=== PATIENT | male | born 1950 | race Caucasian/White ===

== ENCOUNTER 2016-12-21 09:25 | Inpatient (IN) | payer MEDICARE, MEDICAID ==
--- NOTE | 2016-12-21 10:21 | ED ---
Lower Extremity - HPI Summary HPI Summary: 66M presents with left foot edema for a couple days. He has diabetic neuropathy and has been wearing wet shoes. He states he took his shoe off today and noticed that there was edema and redness to the area. He denies any fever or pain. He has been wearing the same shoes at night. He then later states he is getting pain up to his left calf. He has not taken anything for his pain. He admits to he has been living out of his car and has not taken his metformin or januvia in 5 days. He denies any history of blood clots. He does not see a orthotics prosthetics technician. He does not check his blood sugars. His last A1C was 7. - History of Current Complaint Chief Complaint: EDExtremityLower Stated Complaint: TOE INJURY Time Seen by Provider: 12/21/16 10:08 Pain Intensity: 5 - Allergies/Home Medications Allergies/Adverse Reactions: Allergies Allergy/AdvReac Type Severity Reaction Status Date / Time Grass and hay Allergy Rash Uncoded 12/21/16 09:30 PMH/Surg Hx/FS Hx/Imm Hx Endocrine/Hematology History: Reports: Hx Diabetes Infectious Disease History: No Infectious Disease History: Denies: Traveled Outside the [place] in Last 30 Days - Family History Known Family History: Positive: Diabetes - Social History Alcohol Use: None Substance Use Type: Reports: None Smoking Status (MU): Never Smoked Tobacco Review of Systems Negative: Fever Negative: Chest Pain Negative: Shortness Of Breath Positive: Other - ulcer left great toe All Other Systems Reviewed And Are Negative: Yes Physical Exam Triage Information Reviewed: Yes Vital Signs On Initial Exam: Initial Vitals Temp Pulse Resp BP Pulse Ox 98.3 F 85 17 132/77 98 12/21/16 09:26 12/21/16 09:26 12/21/16 09:26 12/21/16 09:26 12/21/16 09:26 Vital Signs Reviewed: Yes Appearance: Positive: Well-Appearing Skin: Positive: Other - 3cm by 4cm full thickness ulcer of left great toe, peeling epidermis present on bottom of bilateral soles. areas of erythema and edema present on foot especially between toes. Head/Face: Positive: Normal Head/Face Inspection Eyes: Positive: Normal, Conjunctiva Clear Respiratory/Lung Sounds: Positive: Clear to Auscultation, Breath Sounds Present Cardiovascular: Positive: Normal, RRR Musculoskeletal: Positive: Strength/ROM Intact - left and right foot, Other - good pulses, no sensation to foot - Basil Coma Scale Coma Scale Total: 15 Diagnostics - Vital Signs Vital Signs Temp Pulse Resp BP Pulse Ox 12/21/16 09:52 86 98 12/21/16 09:50 125/69 12/21/16 09:26 98.3 F 85 17 132/77 98 - Laboratory Result Diagrams: 12/21/16 10:10 12/21/16 10:10 Lab Statement: Any lab studies that have been ordered have been reviewed, and results considered in the medical decision making process. - Radiology foot Xray Interpretation: Positive (See Comments) - IMPRESSION: SOFT TISSUE SWELLING AND ULCER IN THE GREAT TOE. NO SPECIFIC RADIOGRAPHIC EVIDENCE FOR OSTEOMYELITIS. Radiology Interpretation Completed By: Radiologist Lower Extremity Course/Dx - Course Course Of Treatment: 66M presents with left foot edema for a couple days. He has diabetic neuropathy and has been wearing wet shoes. He states he took his shoe off today and noticed that there was edema and redness to the area. He denies any fever or pain. He has been wearing the same shoes at night. on exam has ulcer on left great toe with some drainage with erythema and edema. has erythema between toes. labs no wbc. xray no osteomyelititis seen. had dr ramey see and agrees due to extent of great toe ulcer and social situation would benefit from admission. dr beltran agrees to admission. patient understands and agrees with plan. - Diagnoses Differential Diagnosis/HQI/PQRI: Positive: Cellulitis, Other - diabetic ulcer, contact dermatitis Provider Diagnoses: Diabetic ulcer of left great toe Discharge - Discharge Plan Condition: Fair Disposition: ADMITTED TO [facility]
[2016-12-21 10:36] LABS: Hematocrit 37 % (42-52); Hemoglobin 12.4 g/dl (14.0-18.0); Mean Corpuscular HGB Conc 34 g/dl (31-36); Mean Corpuscular Hemoglobin 33 pg (27-31); Mean Corpuscular Volume 97 fL (80-94); Mean Platelet Volume 7 um3 (7.4-10.4); Red Blood Count 3.82 10^6/ul (4.0-5.4); Red Cell Distribution Width 13 % (10.5-15); White Blood Count 8.6 10^3/ul (3.5-10.8)
--- NOTE | 2016-12-21 10:48 | RAD ---
INDICATION: New diabetic foot ulcer great toe. TECHNIQUE: 3 views of the left foot were obtained. FINDINGS: There is soft tissue swelling present throughout the great toe. There is a soft tissue defect consistent with an ulcer along the medial aspect of the great toe at the level of the distal phalanx. No periosteal or erosive changes are seen. Incidental note is made of moderate osteoarthritic change in the first metatarsal-phalangeal joint. IMPRESSION: SOFT TISSUE SWELLING AND ULCER IN THE GREAT TOE. NO SPECIFIC RADIOGRAPHIC EVIDENCE FOR OSTEOMYELITIS.
[2016-12-21 10:51] LABS: Albumin 3.4 g/dL (3.2-5.2); BUN/Creatinine Ratio 29.9 (8-20); Calcium 8.8 mg/dL (8.6-10.3); EGFR African American 129.6 (>60); EGFR Non-African American 100.8 (>60); Globulin 3.5 g/dL (2-4); Potassium 3.2 mmol/L (3.5-5.0); Total Bilirubin 1.7 mg/dL (0.2-1.0); Total Protein 6.9 g/dL (6.4-8.9)
--- NOTE | 2016-12-21 12:05 | RAD ---
INDICATIONS: open wound, left great toe COMPARISONS: None TECHNIQUE: Ankle-brachial indices and Doppler tracings were obtained of the lower extremities bilaterally. FINDINGS: Right: The posterior tibial ankle brachial index is 1.35. The dorsalis pedis ankle brachial index is 1.28. The digital brachial index is 0.93 The posterior tibial waveform is triphasic. The dorsalis pedis waveform is triphasic. Left: The posterior tibial ankle brachial index is 1.33. The dorsalis pedis ankle brachial index is 1.24. The posterior tibial waveform is triphasic. The dorsalis pedis waveform is triphasic. OTHER: None. IMPRESSION: INCREASED ANKLE-BRACHIAL INDICES SUGGESTIVE OF DECREASED COMPLIANCE IN THE SETTING OF ARTERIOSCLEROSIS. THE DISTAL WAVEFORMS ARE NORMAL.
[2016-12-21] MEDS ORDERED: ceFAZolin 1 GM in Dextrose (*) 1 GM/50 ML BAG IVPB ONE (12:59)
[2016-12-21] MEDS ORDERED: cefTRIAXone(*) 1 GM in NS 0.9% 50 ML* 50 ML IVPB ONE (13:00)
[2016-12-21] MEDS ORDERED: Vancomycin(*) 1,500 MG in NS 0.9% 250 ML* 250 ML IVPB ONE (14:00)
[2016-12-21] MEDS ORDERED: Potassium Chlor TAB* 20 MEQ TAB.ER PO ONE ×2 (14:47→21:00)
[2016-12-21] MEDS ORDERED: Vancomycin per Pharmacy* NOTE FOLLOW UP SCH (15:00)
[2016-12-21] MEDS: Cefepime(*) 1 GM in NS 0.9% 50 ML* 50 ML IVPB SCH (17:16)
[2016-12-21] MEDS: Enoxaparin(*) 40 MG/0.4 ML SYR SUBCUT SCH (17:16)
--- NOTE | 2016-12-21 19:34 | HP ---
CC: Dr. Vilma Lundberg * HISTORY AND PHYSICAL: DATE OF ADMISSION: 12/21/16 PRIMARY CARE PHYSICIAN: Dr. Vilma Lundberg. CHIEF COMPLAINT: Foot pain. HISTORY OF PRESENT ILLNESS AND HOSPITAL SUMMARY: Mr. Escalante is a 66-year-old male with a past medical history of type 2 diabetes and peripheral neuropathy, who presents to the hospital with foot pain. The patient states he has been doing a lot of heavy lifting and moving recently. He sold his house and was supposed to vacate the premises by this past Sunday; however, he was unable to do so due to the amount of stress that he had in his house. He has been working to move these belongings, a lot of them heavy and requiring additional people. He states that from Sunday through now, he has been working often 22 hours a day moving things around. He recently bought new boots and developed some foot pain that he initially thought he was just breaking in the boots. He has been working in very wet conditions and over the past days, he has not taken the boots off or change his wet socks because his clothes have been in a new building he is moving into and he has not had easy access to that building. The patient states the last time he looked at his feet was a few days prior to admission and he noticed a small blister in his left great toe as well as a small blister between two toes in the right foot. Today, he was finally able to make it to his new building and stopped there to get some new clothes and he took his socks off. He was concerned that the way his feet looked. He denies much discharge noted in his socks, although he was not particularly looking for this. Did not notice any bleeding. He states his left great toe has been black underneath the toe nail for some months now, which is not new. He does endorse some chills but no fevers. Denies any chest pain, nausea, vomiting. Has chronic diarrhea. The patient states that he has been off his diabetes medications for 4 to 5 days, because these have also been in a box moved to his new place. He has not been checking his sugars. He states that he has had 25- pound weight loss over the past 3 months, which he attributes to the significant amount of work he has been doing lately. Of note, he had a colonoscopy in November of 2016, that just showed a small polypoid nodule that was removed. In the emergency department, there was concern about the way the ulcer looked and about the patient's ability for close followup and treatment due to his shifting, living situation at the time. Hospitalist service was consulted to consider the patient for admission. PAST MEDICAL HISTORY: Diabetes, peripheral neuropathy. PAST SURGICAL HISTORY: None. HOME MEDICATIONS: 1. Sitagliptin 100 mg by mouth daily. 2. Metformin 850 mg by mouth 2 times daily. ALLERGIES: No known drug allergies. FAMILY HISTORY: Significant for father with diabetes; end-stage renal disease, on dialysis. Mother with dementia. SOCIAL HISTORY: The patient never smoked. Does not drink any alcohol or use any illicit drugs. PHYSICAL EXAMINATION GENERAL: The patient is a middle-aged man, disheveled, malodorous, lying in bed, in no apparent distress. VITAL SIGNS: On admission, temperature 98.3, heart rate 85, respiratory rate of 17, O2 saturation 98% on room air, blood pressure 132/77. HEENT: Head: Normocephalic, atraumatic. Eyes: Pupils equal, round, and reactive to light and accommodation. Anicteric sclerae. ENT: Moist mucous membranes. No cervical adenopathy. LUNGS: Clear to auscultation bilaterally. No wheezes, rales, or rhonchi. CARDIOVASCULAR: Regular rate and rhythm. S1 and S2 present. No murmurs, gallops, or rubs. ABDOMEN: Soft, nontender, nondistended. Possible hepatomegaly or ventral hernia. No rebound or guarding. Bowel sounds are positive. The patient has scattered excoriations over his abdomen. EXTREMITIES: The patient with pitting edema to the knees bilaterally, right greater than left. Shins and feet have scattered erythematous patches that are nonraised, also with some slight petechiae in various areas of the foot as well. On the medial aspect of the second right toe, there is a shallow ulceration with slight purulent discharge. On the left great toe, there is a larger ulcer with what appears to be some necrotic areas, although it is difficult because his feet are very dirty to tell. No discharge from this ulcer , it appears dry. On the plantar surface of the patient's feet, he has some white thickened areas. SKIN: Aside from the feet, the patient has scattered scratches and excoriations over his upper and lower extremities as well as his abdomen as noted above. DIAGNOSTIC STUDIES/LAB DATA: White blood cell count of 8.6, hematocrit of 37, platelets of 234. Sodium of 136, potassium 3.2, chloride of 104, carbon dioxide of 24, BUN of 23, creatinine 0.77, glucose of 170, lactic acid of 1.1. Total bilirubin of 1.7, AST of 131, ALT of 74. CRP, high sensitivity of 55. ABIs done in the emergency department show increased ankle brachial indices suggestive of decreased compliance in the setting of arteriosclerosis. The distal wave forms are normal. X-ray of the left foot shows soft tissue swelling and ulcer in the great toe, no specific radiographic evidence for osteomyelitis. ASSESSMENT AND PLAN: Left great toe ulcer and right second toe ulcer with a possible underlying infection, as well as possible mild trench foot/immersion foot syndrome in a 66-year-old man with a past medical history of type 2 diabetes and peripheral neuropathy. 1. Bilateral lower extremity ulceration. Seems that the patient likely has a mild element of trench foot that provided a portal for infection and between his repetitive trauma in his feet from his long work days and the wet conditions and his diabetes, he had a combination of elements ripe to introduce an infection. There was an x-ray done of the left great toe that did not show any clear evidence of osteomyelitis, but this could be early on and may not show up yet on that x-ray. I am going to order an MRI of both feet to evaluate further. Blood cultures are done. There was also most likely a super-ficial wound culture of the left foot. I am not clear that there is significant underlying infection, but for the time being, I will continue the patient on vancomycin and we will add cefepime as well. I have asked Dr. Wilson to come and evaluate the patient tomorrow to see if he feels that IV antibiotics are necessary. I have ordered a Wound Care consult, seems that the trench foot does not appear to be covering a significant area necessitating any debridement at this time. 2. Transaminitis. The patient states he does not drink any alcohol. He has a mild AST and ALT elevation and an elevated bilirubin. We will check a right upper quadrant ultrasound. 3. Diabetes. Continue the patient on his home metformin for now. We will hold his Januvia. Check his BGs q.a.c. and h.s. 4. DVT prophylaxis. Lovenox subcu. 5. Code status. The patient is a full code. TIME SPENT: Total time spent on this admission 60 minutes, with over half the time spent [id number] with the patient in counseling and coordinating care. [id number]/CPS #: [id number] MTDD
--- NOTE | 2016-12-21 20:04 | RAD ---
Indication: LFT elevations. Weight loss. Comparison: No relevant prior exams available on the [facility] [place]. Technique: RIGHT upper quadrant ultrasound. Report: Appropriate direction flow documented in the portal and hepatic veins. 18.9 cm liver is increased in echogenicity. Negative for focal hepatic lesions. Negative for intrahepatic biliary dilatation. 5.7 mm common bile duct. Adequately distended gallbladder with 0.9 cm stone at the neck without demonstrated mobility. Upper normal 3 mm gallbladder wall thickness. Negative for pericholecystic fluid. Negative for sonographic Wyman's sign. The pancreatic tail is partially obscured due to bowel gas with the visualized pancreas echogenic favoring partial fatty replacement. Negative for ascites. 14.0 cm RIGHT kidney is unremarkable. IMPRESSION: 1. Mildly enlarged liver with evidence for hepatosteatosis. 2. Cholelithiasis without compelling secondary findings to indicate acute cholecystitis.
--- NOTE | 2016-12-21 20:51 | RAD ---
INDICATION: History of working with metal also. No known injury. Screening for potential orbital foreign body prior to MRI. COMPARISON: No relevant prior exams available on the [facility] [place]ACS for comparison. TECHNIQUE: AP and lateral views of the orbits were obtained. FINDINGS: No radiopaque foreign bodies are identified at the level of the orbits or visualized calvarium. Dental amalgam noted. IMPRESSION: No radiopaque orbital foreign bodies evident.
[2016-12-21] MEDS ORDERED: metFORMIN* 500 MG TAB PO SCH (21:00)
[2016-12-21] MEDS: metFORMIN* 850 MG TAB PO SCH (22:28)
--- NOTE | 2016-12-21 22:43 | RAD ---
Indication: Ulceration RIGHT second toe. Assess for osteomyelitis. Comparison: July 25, 2013 radiographs. Technique: [employer] 1.5 Josselyn [id number] with GEM suite. Noncontrast MRI RIGHT foot limited to T1 and inversion recovery series. Report: There is an intra-articular fracture at the plantar base of the second proximal phalanx at the medial aspect with mild associated marrow edema. Negative for significant surrounding soft tissue edema. No significant soft tissue edema evident at the plantar aspect of the forefoot to correspond with the reported soft tissue ulcer. There is nonfocal subcutaneous edema over the dorsum of the foot and about the ankle and visualized lower leg without evidence for a loculated soft tissue plane fluid collection. There is polyarticular osteoarthritis most prominent at the first metatarsal phalangeal joint and articulation with the sesamoid bones with associated subchondral marrow edema. IMPRESSION: No compelling evidence for osteomyelitis. Probable chronic intra-articular fracture at the plantar base of the second proximal phalanx at the medial aspect. Nonspecific soft tissue edema. No loculated abscess collection evident.
--- NOTE | 2016-12-21 22:50 | RAD ---
Indication: Ulceration LEFT great toe. Assess for osteomyelitis. Comparison: December 21, 2016 radiographs. Technique: [employer] 1.5 Josselyn [id number] with GEM suite. Noncontrast MRI LEFT foot limited to T1 and inversion recovery series. Report: Soft tissue edema most prominent over the lateral aspect of the ankle and foot as well as involving the intrinsic musculature along the plantar aspect of the foot. No loculated soft tissue plane abscess collection evident. Soft tissue ulcer at the medial aspect of the great toe at level of the distal phalanx and interphalangeal joint. Bone marrow edema at the first distal phalanx without compelling loss of normal T1 marrow hyperintensity. On the sagittal T1-weighted series there is suggestion of a fracture at the junction of the diaphysis and the tuft of the first distal phalanx. Polyarticular osteoarthritis from the talocrural and subtalar joints proximally through the interphalangeal joints distally. Moderate plantar fascia origin bone spur. IMPRESSION: 1. Shallow soft tissue ulcer medial aspect great toe. Subjacent and diffuse soft tissue edema involving the subcutaneous tissue plane and intrinsic musculature of the foot without evidence for a loculated soft tissue plane abscess collection. 2. Bone marrow edema at the first distal phalanx is nonspecific and may be reactive secondary to cellulitis. Early osteomyelitis is not entirely excluded. Edema is further less specific due to presence of a fracture at the junction of the diaphysis and tuft of the distal phalanx.
[2016-12-21] MEDS: Vancomycin(*) 1,000 MG in NS 0.9% 250 ML* 250 ML IVPB SCH (22:54)
[2016-12-21] MEDS: Collagenase 250 MG/GM OINT* 30 GM TOPICAL SCH (23:14)
[2016-12-21] MEDS: Neosporin TOPICAL OINT* 1 EA PACKET TOPICAL SCH (23:15)
[2016-12-22] MEDS: Cefepime(*) 1 GM in NS 0.9% 50 ML* 50 ML IVPB SCH ×2 (01:40→13:57)
[2016-12-22 05:19] LABS: Hematocrit 36 % (42-52); Hemoglobin 11.7 g/dl (14.0-18.0); Mean Corpuscular HGB Conc 33 g/dl (31-36); Mean Corpuscular Hemoglobin 32 pg (27-31); Mean Corpuscular Volume 97 fL (80-94); Mean Platelet Volume 7 um3 (7.4-10.4); Red Blood Count 3.66 10^6/ul (4.0-5.4); Red Cell Distribution Width 13 % (10.5-15); White Blood Count 7.5 10^3/ul (3.5-10.8)
[2016-12-22] MEDS: Vancomycin(*) 1,000 MG in NS 0.9% 250 ML* 250 ML IVPB SCH ×2 (05:27→14:55)
[2016-12-22 05:39] LABS: EGFR African American 163.4 (>60)
[2016-12-22 05:41] LABS: Albumin 2.8 g/dL (3.2-5.2); BUN/Creatinine Ratio 25.4 (8-20); Calcium 8.2 mg/dL (8.6-10.3); EGFR African American 163.4 (>60); Globulin 3.1 g/dL (2-4); Potassium 3.7 mmol/L (3.5-5.0); Total Bilirubin 1.2 mg/dL (0.2-1.0); Total Protein 5.9 g/dL (6.4-8.9)
[2016-12-22] MEDS: metFORMIN* 850 MG TAB PO SCH ×2 (08:34→20:10)
[2016-12-22] MEDS ORDERED: Vancomycin Trough Check NOTE FOLLOW UP ONE (13:30)
--- NOTE | 2016-12-22 14:31 | PN ---
Subjective Date of Service: 12/22/16 Interval History: Patient seen this morning. Says he is feeling better overall, although still with B/L foot pain. No fever or chills. Good PO intake. Has had watery stool 3x this morning. Family History: Unchanged from Admission Social History: Unchanged from Admission Past Medical History: Unchanged from Admission Objective Active Medications: Acetaminophen (Tylenol Tab*) 650 mg PO Q4H PRN Collagenase (Santyl 250 Mg/Gm Oint*) 1 applic TOPICAL DAILY [facility] Enoxaparin Sodium (Lovenox(*)) 40 mg SUBCUT Q24H [facility] Cefepime HCl 1 gm/ Sodium (Chloride) 50 mls @ 100 mls/hr IVPB Q12H [facility] Metformin HCl (Glucophage*) 850 mg PO BID [facility] Metronidazole (Flagyl Tab*) 500 mg PO BID [facility] Neomycin/Polymyxin/Bacitracin (Neosporin Top Oint Packet*) 1 ea TOPICAL DAILY [facility] Pharmacy Consult (Vancomycin Per Pharmacy*) 1 note FOLLOW UP .VANC PER PHARMACY [facility] Vital Signs 12/21/16 12/21/16 12/21/16 14:30 14:43 14:58 Temperature 98.4 F 98.3 F Pulse Rate 88 83 88 Respiratory 16 18 Rate Blood Pressure 134/68 131/69 134/68 (mmHg) O2 Sat by Pulse 97 98 Oximetry 12/22/16 03:37 Temperature 98.0 F Pulse Rate 81 Respiratory 20 Rate Blood Pressure 116/66 (mmHg) O2 Sat by Pulse 100 Oximetry Oxygen Devices in Use Now: None Appearance: Middle-aged, M, laying in bed in NAD Eyes: No Scleral Icterus Ears/Nose/Mouth/Throat: Mucous Membranes Moist Neck: NL Appearance and Movements; NL JVP Respiratory: Symmetrical Chest Expansion and Respiratory Effort, Clear to Auscultation Cardiovascular: NL Sounds; No Murmurs; No JVD, RRR Abdominal: NL Sounds; No Tenderness; No Distention Lymphatic: No Cervical Adenopathy Extremities: - - Trace B/L LE edema, improved Skin: - - L great toe ulcer with some mild necrosis, edema, R medial 2nd toe ulcer, small petechial area on B/L feet Neurological: Alert and Oriented x 3 Result Diagrams: 12/22/16 05:03 12/22/16 05:03 Assess/Plan/Problems-Billing Assessment: B/L LE ulcers with underlying L great toe infection in a 66 yo M with hx of DM - Patient Problems (1) Traumatic ulcer of left lower extremity with infection Current Visit: Yes Comment: in L great toe and R 2nd toe. MRI shows some L great toe marrow edema that may be related to inflammation. Wound culture growing Staph aureus (not MRSA). Wound care and ID consult appreciated. Cefepime /Flagyl as per ID. Vanc stopped. Will monitor over the next days on IV ABx. Small fxs noted on MRI as well. (2) Transaminitis Current Visit: Yes Comment: US negative. AST/ALT/Bili trending down. (3) Diabetes Current Visit: Yes Comment: Continue TID metformin. BGs slightly high but missed a dose yesterday. Will add SSI if needed. (4) DVT prophylaxis Current Visit: Yes Comment: Lovenox Status and Disposition: Inpatient for IV ABx
[2016-12-22] MEDS: Neosporin TOPICAL OINT* 1 EA PACKET TOPICAL SCH (14:58)
[2016-12-22] MEDS: Collagenase 250 MG/GM OINT* 30 GM TOPICAL SCH (14:58)
[2016-12-22] MEDS: Enoxaparin(*) 40 MG/0.4 ML SYR SUBCUT SCH (15:19)
[2016-12-22] MEDS: metroNIDAZOLE TAB* 250 MG PO SCH (20:10)
--- NOTE | 2016-12-23 00:41 | CONS ---
CONSULTATION REPORT: DATE OF CONSULT: 12/22/16 REQUESTING PHYSICIAN: Troy Donnelly MD CONSULTING SERVICE: Infectious Disease. REASON FOR CONSULT: Foot infection. IMPRESSION: 1. Left medial plantar toe ulcer with some fibrinous slough, surrounding cellulitis. Wound culture is growing Staph aureus, methicillin sensitive. This is likely one of the primary pathogens that could be polymicrobial as well. An MRI showed soft tissue edema involving subcutaneous tissue and musculature of the foot. No abscess. First distal phalanx, bone marrow edema, reactive versus early osteomyelitis. There was not noted to be any loss of T1 marrow hyperintensity, which argues against osteomyelitis. 2. MRI also shows suggestion of fracture of the junction of diaphysis of the tuft to the first distal phalanx. 3. Right second medial toe pressure related ulcer with surrounding mild cellulitis. 3. Diabetes with peripheral neuropathy. 4. Transaminitis, asymptomatic, improving; hyperbilirubinemia, improving. The AST is twice the ALT, question alcohol related. RECOMMENDATIONS: Stop vancomycin, continue cefepime 1 g IV every 8 hours and add Flagyl 500 mg by mouth twice daily. Continue a couple of days of IV antibiotics and evaluate for improvement in the soft tissue component of this infected ulcer. If there is not considerable improvement and if anything is getting worse, please have surgical evaluation for debridement. HISTORY OF PRESENT ILLNESS: This is a 66-year-old man, who is diabetic, has been working extensively over the last few days, essentially nonstop in a pair of new boots, which were wet the whole time, developed some sores and ulcerations with the change of boots yesterday and found a number of ulcers and redness and swelling in both feet. He came to the hospital. His white blood cell count was 8. He was afebrile. He had a swab of the biggest ulcer, the medial left toe ulcer. The PCR is positive of Staph aureus, negative for MRSA. The Gram stain showed gram- positive cocci, the culture is growing Staph aureus, the blood cultures are negative at 24 hours. He has been on vancomycin and cefepime. He is tolerating that well. He did have 1 or 2 loose stools today, but no abdominal pain or urgency. The pain is a little bit improved, it is worse with weightbearing in both feet. Pain medications have helped. He is keeping his feet up. He has not had an infection like this in the past. He has no prosthetic material present. He had an JONNIE that showed increased indices bilaterally. No dampening of distal waveforms. PAST MEDICAL HISTORY: Type 2 diabetes with neuropathy. MEDICATIONS: 1. Collagenase. 2. Enoxaparin. 3. Cefepime 1 g IV every 12 hours. 4. Neosporin ointment. 5. Metformin. ALLERGIES: No known drug allergies. SOCIAL HISTORY: He was recently moving out of his house into a trailer or abandoned building. Nonsmoker, no injection drugs. Denies alcohol. REVIEW OF SYSTEMS: All negative to full review of systems except as noted above. PHYSICAL EXAM: Vital Signs: Temperature 36.7, heart rate 80, respiratory rate 20, blood pressure 116/66, O2 sat 100% on room air. General: He is awake, not in distress. Neurologic: He is oriented x3. Follows all commands. Moves all of his extremities. Sensation is decreased to light touch in the feet bilaterally. HEENT: There is no conjunctival hemorrhage. Oropharynx without lesions. He has poor dentition. Neck is supple without nuchal rigidity. Lymph Nodes: There is no inguinal, axillary or epitrochlear lymphadenopathy. Heart has regular rate and rhythm without murmurs, rubs, or gallops. Lungs are clear to auscultation bilaterally. Abdomen: Soft, nontender, and nondistended. There are bowel sounds present. Skin: There is no rash or splinter hemorrhages. Musculoskeletal: There is no spine tenderness to palpation. The dorsalis pedis pulses are 2+ bilaterally. In the left medial toe , there is oblong 1.5 cm shallow ulceration with some surrounding maceration, underlying fibrinous debris, surrounding erythema, serous drainage, erythema and edema extending up into the mid foot. There is no crepitus or fluctuance. There is no ankle tenderness to palpation. There is no other joint synovitis. In the right second medial toe, there is a 5 mm round ulceration in the area of contact with the great toe with surrounding erythema. No drainage or fluctuance. LABORATORY DATA: White blood cell count 7, hemoglobin is 11, platelets 195. Creatinine 0.6, bilirubin 1.2, AST 70, ALT 51. Please see impressions and recommendations outlined above, which I have discussed with Dr. Donnelly. Thank you for asking me to see Mr. Escalante in consultation. [id number]/[facility] #: [id number] NOHELIA
[2016-12-23] MEDS: Cefepime(*) 1 GM in NS 0.9% 50 ML* 50 ML IVPB SCH ×2 (00:58→14:22)
[2016-12-23] MEDS ORDERED: Dextrose 50% Syringe 50 ML* 25 GM/50 ML SYRINGE IV PUSH PRN (08:27)
[2016-12-23] MEDS: metroNIDAZOLE TAB* 250 MG PO SCH ×2 (08:40→19:46)
[2016-12-23] MEDS: metFORMIN* 850 MG TAB PO SCH ×2 (08:40→19:45)
--- NOTE | 2016-12-23 08:40 | PN ---
Subjective Date of Service: 12/23/16 Interval History: Patient seen this AM. No new complaints, feels feet are slowly improving. No fever or chills. No chest pain, SOB, palpitations. Family History: Unchanged from Admission Social History: Unchanged from Admission Past Medical History: Unchanged from Admission Objective Active Medications: Acetaminophen (Tylenol Tab*) 650 mg PO Q4H PRN Collagenase (Santyl 250 Mg/Gm Oint*) 1 applic TOPICAL DAILY [facility] Enoxaparin Sodium (Lovenox(*)) 40 mg SUBCUT Q24H [facility] Cefepime HCl 1 gm/ Sodium (Chloride) 50 mls @ 100 mls/hr IVPB Q12H [facility] Metformin HCl (Glucophage*) 850 mg PO BID [facility] Metronidazole (Flagyl Tab*) 500 mg PO BID [facility] Neomycin/Polymyxin/Bacitracin (Neosporin Top Oint Packet*) 1 ea TOPICAL DAILY [facility] Vital Signs 12/22/16 12/22/16 12/22/16 15:27 19:36 20:00 Temperature 98.5 F 98.8 F Pulse Rate 81 73 Respiratory 18 22 18 Rate Blood Pressure 128/60 122/55 (mmHg) O2 Sat by Pulse 97 94 Oximetry 12/22/16 12/23/16 23:33 03:49 Temperature 98.0 F Pulse Rate 70 114 Respiratory 16 16 Rate Blood Pressure 118/58 109/52 (mmHg) O2 Sat by Pulse 97 91 Oximetry Oxygen Devices in Use Now: None Appearance: Middle-aged, M, laying in bed in NAD Eyes: No Scleral Icterus Ears/Nose/Mouth/Throat: Mucous Membranes Moist Neck: NL Appearance and Movements; NL JVP Respiratory: Symmetrical Chest Expansion and Respiratory Effort, - - Scattered faint wheezing, otherwise clear Cardiovascular: - - IRIR, tachycardic Lymphatic: No Cervical Adenopathy Extremities: - - Mild B/L LE edema Skin: - - B/L feet with dressing in place, some dried bloody discharge over L great toe, will evaluate with dressing change later Neurological: Alert and Oriented x 3 Result Diagrams: 12/22/16 05:03 12/22/16 05:03 Assess/Plan/Problems-Billing Assessment: B/L LE ulcers with underlying L great toe infection in a 66 yo M with hx of DM, course complicated by new onset AFib - Patient Problems (1) Traumatic ulcer of left lower extremity with infection Current Visit: Yes Comment: in L great toe and R 2nd toe. MRI shows some L great toe marrow edema that may be related to inflammation. Wound culture growing Staph aureus (not MRSA). Wound care and ID consult appreciated. Cefepime /Flagyl as per ID. Will monitor over the next days on IV ABx. Small fxs noted on MRI as well. (2) Atrial fibrillation Current Visit: Yes Comment: New dx, as patient asymptomatic this may have been ongoing as an outpatient, ?related to infection. Will transfer to to monitor on tele. Check BMP, Mg, TSH, BNP, troponin. Get echocardiogram. Start rate controlling agent. [id number] score of 2, will discuss long term care administrator anticoagulation with the patient, in the meantime will start therapeutic Lovenox (3) Transaminitis Current Visit: Yes Comment: US negative. AST/ALT/Bili trending down. (4) Diabetes Current Visit: Yes Comment: Continue TID metformin. Low dose HISS. (5) DVT prophylaxis Current Visit: Yes Comment: Lovenox Status and Disposition: Inpatient for IV ABx, new onset AFib
[2016-12-23 09:30] LABS: Calcium 8.4 mg/dL (8.6-10.3); EGFR African American 157.6 (>60); EGFR Non-African American 122.5 (>60); Magnesium 1.8 mg/dL (1.9-2.7); Potassium 3.9 mmol/L (3.5-5.0)
[2016-12-23] MEDS: Enoxaparin(*) 100 MG/ML SYR SUBCUT SCH ×2 (09:31→19:44)
[2016-12-23] MEDS ORDERED: Magnesium Oxide TAB* 400 MG PO ONE (09:49)
[2016-12-23 09:54] LABS: TSH (Thyroid Stimulating Horm) 1.83 mcIU/mL (0.34-5.60)
[2016-12-23] MEDS ORDERED: Metoprolol Tartrate IV* 1 MG/ML 5 ML VIAL IV ONE (10:54)
[2016-12-23] MEDS: Insulin LISPRO* 1 UNITS UNIT SUBCUT SCH ×2 (12:26→17:42)
[2016-12-23] MEDS ORDERED: Furosemide IV* 10 MG/ML 2 ML VIAL (20 MG) IV ONE (12:56)
[2016-12-23] MEDS ORDERED: Metoprolol Tartrate TAB* 25 MG PO SCH (13:00)
[2016-12-23] MEDS: Acetaminophen TAB* 325 MG PO PRN (14:22)
[2016-12-23] MEDS: Collagenase 250 MG/GM OINT* 30 GM TOPICAL SCH (15:55)
[2016-12-23] MEDS: Neosporin TOPICAL OINT* 1 EA PACKET TOPICAL SCH (15:56)
[2016-12-23] MEDS ORDERED: Diltiazem IV* 5 MG/ML 5 ML VIAL (for loading dose/IV Push) (25 MG) IV SLOW PU ONE (17:48)
[2016-12-23] MEDS ORDERED: Diltiazem IV* 5 MG/ML 5 ML VIAL (for loading dose/IV Push) (25 MG) IV SLOW PU PRN (18:15)
[2016-12-23] MEDS: Diltiazem TAB* 30 MG PO SCH (19:44)
[2016-12-24] MEDS: Cefepime(*) 1 GM in NS 0.9% 50 ML* 50 ML IVPB SCH ×2 (00:25→13:57)
[2016-12-24] MEDS: Diltiazem TAB* 30 MG PO SCH ×4 (00:25→18:29)
[2016-12-24 05:33] LABS: BUN/Creatinine Ratio 23.1 (8-20); Calcium 8.3 mg/dL (8.6-10.3); EGFR African American 157.6 (>60); EGFR Non-African American 122.5 (>60); Magnesium 1.8 mg/dL (1.9-2.7); Potassium 3.7 mmol/L (3.5-5.0)
[2016-12-24] MEDS ORDERED: Potassium Chlor TAB* 20 MEQ TAB.ER PO ONE (07:34)
[2016-12-24] MEDS ORDERED: Magnesium Sulfate 2 GM IV* 2 GM/50 ML BAG IVPB ONE (07:34)
[2016-12-24] MEDS: Insulin LISPRO* 1 UNITS UNIT SUBCUT SCH ×3 (07:52→18:31)
[2016-12-24] MEDS: metFORMIN* 850 MG TAB PO SCH ×2 (08:13→20:55)
[2016-12-24] MEDS: metroNIDAZOLE TAB* 250 MG PO SCH ×2 (08:13→20:55)
[2016-12-24] MEDS: Enoxaparin(*) 100 MG/ML SYR SUBCUT SCH ×2 (08:13→20:55)
--- NOTE | 2016-12-24 08:20 | PN ---
Subjective Date of Service: 12/24/16 Interval History: Patient seen this morning. Still with some foot pain. Kept his LEs elevated overnight. No chest pain or palpitations. Family History: Unchanged from Admission Social History: Unchanged from Admission Past Medical History: Unchanged from Admission Objective Active Medications: Acetaminophen (Tylenol Tab*) 650 mg PO Q4H PRN Collagenase (Santyl 250 Mg/Gm Oint*) 1 applic TOPICAL DAILY [facility] Dextrose (D50w Syringe 50 Ml*) 12.5 gm IV PUSH .FOR FS < 60 - SS PRN Diltiazem HCl (Diltiazem Iv*) 15 mg IV SLOW PU Q4H PRN Diltiazem HCl (Cardizem Tab*) 30 mg PO Q6HR [facility] Enoxaparin Sodium (Lovenox(*)) 100 mg SUBCUT Q12H [facility] Cefepime HCl 1 gm/ Sodium (Chloride) 50 mls @ 100 mls/hr IVPB Q12H [facility] Magnesium Sulfate (Magnesium Sulfate 2 Gm Iv*) 2 gm in 50 mls @ 50 mls/hr IVPB ONCE ONE Insulin Human Lispro (Humalog*) 0 - 5 units SUBCUT AC [facility] Metformin HCl (Glucophage*) 850 mg PO BID [facility] Metronidazole (Flagyl Tab*) 500 mg PO BID [facility] Neomycin/Polymyxin/Bacitracin (Neosporin Top Oint Packet*) 1 ea TOPICAL DAILY [facility] Vital Signs 12/23/16 12/23/16 12/23/16 10:01 11:29 15:18 Temperature 98.6 F 98.2 F 97.9 F Pulse Rate 123 103 63 Respiratory 18 20 16 Rate Blood Pressure 123/74 129/68 126/86 (mmHg) O2 Sat by Pulse 97 98 98 Oximetry 12/23/16 12/23/16 12/24/16 20:00 23:18 03:48 Temperature 97.8 F 98.6 F Pulse Rate 75 77 Respiratory 17 18 15 Rate Blood Pressure 120/61 122/70 (mmHg) O2 Sat by Pulse 98 99 Oximetry Oxygen Devices in Use Now: None Appearance: Middle-aged, M, laying in bed in NAD Eyes: No Scleral Icterus Ears/Nose/Mouth/Throat: Mucous Membranes Moist Neck: NL Appearance and Movements; NL JVP Respiratory: Symmetrical Chest Expansion and Respiratory Effort, Clear to Auscultation Cardiovascular: NL Sounds; No Murmurs; No JVD, RRR Abdominal: NL Sounds; No Tenderness; No Distention Lymphatic: No Cervical Adenopathy Extremities: No Edema Skin: - - LE wounds wrapped, will evaluate later today (yesterday PM check seemed to be improving) Neurological: Alert and Oriented x 3 Result Diagrams: 12/22/16 05:03 12/24/16 05:08 Assess/Plan/Problems-Billing Assessment: B/L LE ulcers with underlying L great toe infection in a 66 yo M with hx of DM, course complicated by new onset AFib - Patient Problems (1) Traumatic ulcer of left lower extremity with infection Current Visit: Yes Comment: in L great toe and R 2nd toe. MRI shows some L great toe marrow edema that may be related to inflammation. Wound culture growing Staph aureus (not MRSA). Wound care and ID consult appreciated. Cefepime /Flagyl as per ID. Will monitor over the next days on IV ABx, ID to re-evaluate on 12/25, hopefully can avoid any surgical intervention. Small fxs noted on MRI as well. (2) Atrial fibrillation Current Visit: Yes Comment: New dx. HRs still elevated 12/23 on PO Metoprolol, then converted back to NSR 12/23 around 6 PM after IV Diltiazem. Had very brief episode of SVT/AFib this AM then back in sinus. Continue PO Diltiazem, therapeutic Lovenox. Echo today. (3) Transaminitis Current Visit: Yes Comment: US negative. AST/ALT/Bili trending down. (4) Diabetes Current Visit: Yes Comment: Continue TID metformin. Low dose HISS. (5) DVT prophylaxis Current Visit: Yes Comment: Lovenox Status and Disposition: Inpatient for IV ABx, new onset AFib
--- NOTE | 2016-12-24 11:36 | ECHO ---
Patient: RUMA HAYDEN [facility] Rec#: [id number] : 1950 Date: 12/24/2016 Age: 66y Height: 187 cm / 73.6 in Weight: 100.3 kg / 221.1 lbs Sex: M BSA: 2.26 Room#: 434 Admit Date#: 12/22/2016 Type: Inpatient Referring: JARRED BARCLAY MD Reading: Efrain Sampson DO Automatic Maintainer: Elizabeth Linder RDCS CC: Vilma Garcia MD Transthoracic Echocardiogram Indication: New Aifib BP: 122/70 HR: 79 Rhythm: NSR Findings History: DM,peripheral neuropathy, new a-fib. Technical Comments: The study quality is good. Completed at 1013. Left Ventricle: The left ventricular chamber size is normal. Mild concentric left ventricular hypertrophy is observed. Global left ventricular wall motion and contractility are within normal limits. There is normal left ventricular systolic function. The estimated ejection fraction is 55-60%. The left ventricular diastolic filling pattern is consistent with pseudonormalization. Left Atrium: The left atrium is mild to moderately dilated. Right Ventricle: The right ventricular chamber size and systolic function are within normal limits. Right Atrium: The right atrial cavity size is normal. Aortic Valve: The aortic valve is trileaflet. There is no evidence of aortic regurgitation. There is no evidence of aortic stenosis. Mitral Valve: The mitral valve leaflets are mildly thickened. There is trace to mild mitral regurgitation. There is no evidence of mitral stenosis. Tricuspid Valve: The tricuspid valve leaflets are normal. There is trace tricuspid regurgitation. Unable to estimate the right ventricular systolic pressure. There is no tricuspid stenosis. Pulmonic Valve: There is no evidence of pulmonic regurgitation. There is no pulmonic stenosis. Pericardium: There is no significant pericardial effusion. Aorta: There is mild dilatation of the ascending aorta. There is no dilatation of the aortic arch. There is no dilation of the aortic root. Pulmonary Artery: The main pulmonary artery is not well visualized. Venous: The inferior vena cava is dilated. There is a greater than 50% respiratory change in the inferior vena cava dimension. Conclusions The left ventricular chamber size is normal. Mild concentric left ventricular hypertrophy is observed. Global left ventricular wall motion and contractility are within normal limits. There is normal left ventricular systolic function. The estimated LV ejection fraction is 55-60%. The left atrium is mild to moderately dilated. The right ventricular chamber size and systolic function are within normal limits. No significant valvular abnormalities are noted. There is mild dilatation of the ascending aorta. No prior studies available for comparison at time of interpretation. Measurements Name Value Normal Range RVIDd (AP) 2D 2.7 cm (0.9 - 2.6) RVDdMajor (2D) 3.6 cm (2.2 - 4.4) RAd ISD 4CH 5.1 cm (3.4 - 4.9) RA (A4C)W 3.8 cm (2.9 - 4.6) IVSd (2D) 1.1 cm (0.6 - 1) LVPWd (2D) 1.1 cm (0.6 - 1) LVIDd (2D) 5 cm (3.6 - 5.4) LVIDs (2D) 3.8 cm - LV FS (2D) 24 % (25 - 45) Aortic Annulus 2 cm (1.4 - 2.6) Ao root diameter (2D) 3.3 cm (2.1 - 3.5) Ascending Ao 3.6 cm (2.1 - 3.4) Aortic arch 2.8 cm (1.8 - 3.4) Descending Ao 0.8 cm - LA dimension (AP) 2D 4 cm (2.3 - 3.8) LAd ISD 4CH 6.8 cm (2.9 - 5.3) LA ISD 4CH W 5.2 cm (2.5 - 4.5) Name Value Normal Range LA ESV SP 4CH (A/L) 101 ml - LA ESV SP 2CH (A/L) 76 ml - LA ESV BP (A/L) 90 ml - LA ESV BP (A/L) index 39.92 ml/m2 - LA ESV SP 4CH (MOD) 93 ml - LA ESV SP 2CH (MOD) 72 ml - Name Value Normal Range MV E-wave Vmax 1 m/sec - MV deceleration time 169 msec - MV A-wave Vmax 0.8 m/sec - MV E:A ratio 1.23 ratio - LV septal e' Vmax 0.07 m/sec - LV lateral e' Vmax 0.1 m/sec - LV E:e' septal ratio 14.28 ratio - LV E:e' lateral ratio 10 ratio - Name Value Normal Range AV Vmax 1.6 m/sec - AV VTI 35.1 cm - AV peak gradient 10.74 mmHg - AV mean gradient 6.42 mmHg - LVOT Vmax 1.4 m/sec - LVOT VTI 25.4 cm - LVOT peak gradient 7.53 mmHg - LVOT mean gradient 3.09 mmHg - Name Value Normal Range IVC diameter 2.2 cm - Name Value Normal Range PV Vmax 0.8 m/sec - PV peak gradient 2.45 mmHg -
[2016-12-24] MEDS: Neosporin TOPICAL OINT* 1 EA PACKET TOPICAL SCH (14:10)
[2016-12-24] MEDS: Collagenase 250 MG/GM OINT* 30 GM TOPICAL SCH (14:11)
[2016-12-25] MEDS: Cefepime(*) 1 GM in NS 0.9% 50 ML* 50 ML IVPB SCH (00:23)
[2016-12-25] MEDS: Diltiazem TAB* 30 MG PO SCH ×4 (00:23→17:48)
[2016-12-25 05:06] LABS: BUN/Creatinine Ratio 19.7 (8-20); Calcium 8.3 mg/dL (8.6-10.3); EGFR African American 169.6 (>60); EGFR Non-African American 131.8 (>60); Magnesium 1.9 mg/dL (1.9-2.7); Potassium 4.1 mmol/L (3.5-5.0)
[2016-12-25] MEDS: Acetaminophen TAB* 325 MG PO PRN (06:04)
[2016-12-25] MEDS: Insulin LISPRO* 1 UNITS UNIT SUBCUT SCH ×3 (07:42→16:31)
[2016-12-25] MEDS: Enoxaparin(*) 100 MG/ML SYR SUBCUT SCH ×2 (08:43→21:00)
[2016-12-25] MEDS: metroNIDAZOLE TAB* 250 MG PO SCH (08:43)
[2016-12-25] MEDS: metFORMIN* 850 MG TAB PO SCH ×2 (08:43→21:00)
--- NOTE | 2016-12-25 10:35 | PN ---
Progress Note - Progress Note Date of Service: 12/25/16 SOAP: Subjective: CC: foot ulcer HPI: 66 year old man with diabetic neuropathy and prolonged exposure to new and wet boots; with bilateral foot cellulitis and ulceration. Left great toe edema is improved, ulcer smaller. Right 2nd toe ulcer without drainage, redness resolved. No fever, rash, or diarrhea. Atrial fibrillation over the weekend. Objective: [] Vital Signs Temp 36.6 C 12/25/16 07:19 Pulse 74 12/25/16 07:19 Resp 18 12/25/16 07:35 BP 125/72 12/25/16 07:19 Pulse Ox 100 12/25/16 07:19 Intake & Output 12/24/16 12/25/16 12/25/16 18:59 06:59 18:59 Intake Total 1954 660 350 Output Total 3 Balance 1954 657 350 Intake: IV Fluids 55 20 ABX - CEFEPIME 55 20 IVPB 50 ABX - CEFEPIME 50 Oral 1900 590 350 Output: Urine 3 Other: Estimated Void Small Medium # Bowel Movements 0 Estimated Stool Amount Medium # Voids 3 3 Gen:awake, no distress HEENT:PERRL, MMM Neck:Supple Heart:RRR no murmur Lungs:CTA BL Abd:+BS NTND soft Skin: no rash MSK: R great toe medial plantar superficial ulcer 1 cm and right 2nd toe medial ulcer 4 mm; no surrounding erythema LN: no palpable inguinal LN Laboratory Results - last 24 hr 12/24/16 12/24/16 12/24/16 11:45 16:43 20:14 Sodium Potassium Chloride Carbon Dioxide Anion Gap BUN Creatinine Est GFR ( Amer) Est GFR (Non-Af Amer) BUN/Creatinine Ratio Glucose POC Glucose (mg/dL) 190 H 160 H 220 H Calcium Magnesium 12/25/16 12/25/16 04:35 07:22 Sodium 134 Potassium 4.1 Chloride 103 Carbon Dioxide 26 Anion Gap 5 BUN 12 Creatinine 0.61 L Est GFR ( Amer) 169.6 Est GFR (Non-Af Amer) 131.8 BUN/Creatinine Ratio 19.7 Glucose 140 H POC Glucose (mg/dL) 168 H Calcium 8.3 L Magnesium 1.9 Microbiology 12/21/16 10:23 Blood Venous Aerobic Blood Culture - Preliminary No Growth Day 3 12/21/16 10:23 Blood Venous Anaerobic Blood Culture - Preliminary No Growth Day 3 12/21/16 10:23 Blood Venous Blood Culture - Final 12/21/16 10:10 Blood Venous Aerobic Blood Culture - Preliminary No Growth Day 3 12/21/16 10:10 Blood Venous Anaerobic Blood Culture - Preliminary No Growth Day 3 12/21/16 10:10 Blood Venous Blood Culture - Final Assessment: 1. Left foot ulcer non pressure, diabetes related; with associated cellulitis and myositis due to MSSA; improving 2. diabetes with neuropathy 3. atrial fibrillation due to underlying infection Plan: 1. continue ancef 2 gm IV Q8hrs for 24 more hours and as long as continues to improve, will change to keflex 500 mg po TID x 14 more days. Wound follow up. Discussed with Dr Ro
--- NOTE | 2016-12-25 12:32 | PN ---
Subjective Date of Service: 12/25/16 Interval History: No new c/o. Mild pain L foot, also states he has peripheral neuropathy and diminished sensation in lower legs. No bowel c/o. Family History: Unchanged from Admission Social History: Unchanged from Admission Past Medical History: Unchanged from Admission Objective Active Medications: Acetaminophen (Tylenol Tab*) 650 mg PO Q4H PRN PRN Reason: FEVER/PAIN Last Admin: 12/25/16 06:04 Dose: 650 mg Collagenase (Santyl 250 Mg/Gm Oint*) 1 applic TOPICAL DAILY [facility] Last Admin: 12/24/16 14:11 Dose: 1 applic Dextrose (D50w Syringe 50 Ml*) 12.5 gm IV PUSH .FOR FS < 60 - SS PRN PRN Reason: FS < 60 Diltiazem HCl (Diltiazem Iv*) 15 mg IV SLOW PU Q4H PRN PRN Reason: AFib with HR > 120 Diltiazem HCl (Cardizem Tab*) 30 mg PO Q6HR [facility] Last Admin: 12/25/16 11:57 Dose: 30 mg Enoxaparin Sodium (Lovenox(*)) 100 mg SUBCUT Q12H [facility] Last Admin: 12/25/16 08:43 Dose: 100 mg Cefazolin Sodium/Dextrose (Kefzol Premix(*)) 2 gm in 50 mls @ 100 mls/hr IVPB Q8H [facility] Insulin Human Lispro (Humalog*) 0 - 5 units SUBCUT AC [facility] PRN Reason: Protocol Last Admin: 12/25/16 11:55 Dose: Not Given Metformin HCl (Glucophage*) 850 mg PO BID [facility] Last Admin: 12/25/16 08:43 Dose: 850 mg Metronidazole (Flagyl Tab*) 500 mg PO BID [facility] Last Admin: 12/25/16 08:43 Dose: 500 mg Neomycin/Polymyxin/Bacitracin (Neosporin Top Oint Packet*) 1 ea TOPICAL DAILY [facility] Last Admin: 12/24/16 14:10 Dose: 1 ea Vital Signs 12/24/16 12/24/16 12/24/16 15:26 18:30 20:00 Temperature 98.1 F 99.2 F Pulse Rate 77 81 Respiratory 20 16 16 Rate Blood Pressure 117/52 128/67 (mmHg) O2 Sat by Pulse 99 99 Oximetry 12/24/16 12/25/1612/25/17 23:45 03:41 07:19 Temperature 98.4 F 98.4 F 97.8 F Pulse Rate 71 74 74 Respiratory 18 18 24 Rate Blood Pressure 117/71 123/68 125/72 (mmHg) O2 Sat by Pulse 97 96 100 Oximetry 12/25/16 07:35 Temperature Pulse Rate Respiratory 18 Rate Blood Pressure (mmHg) O2 Sat by Pulse Oximetry Oxygen Devices in Use Now: None Appearance: Alert, partly up in bed. In good spirits. Looks comfortable. Extremities: No Edema, No Clubbing, Cyanosis, - Skin: No Nodules or Sclerosis, - - L great toe ulcer plantar surface, not red, no exudate. Neurological: Alert and Oriented x 3, NL Sensation Result Diagrams: 12/22/16 05:03 12/25/16 04:35 Assess/Plan/Problems-Billing Assessment: B/L LE ulcers with underlying L great toe infection in a 66 yo M with hx of DM, course complicated by new onset AFib - Patient Problems (1) Diabetic foot ulcer Current Visit: Yes Status: Acute Code(s): E11.621 - TYPE 2 DIABETES MELLITUS WITH FOOT ULCER; L97.509 - NON-PRESSURE CHRONIC ULCER OTH PRT UNSP FOOT W UNSP SEVERITY SNOMED Code(s): 933293623 Comment: Discussed with Dr. Wilson. Cefazolin 2 gm q 8 hr until discharge , then cephalexion 500 mg po tid x 14 d. [facility]. (2) Diabetes Current Visit: Yes Status: Acute Code(s): E11.9 - TYPE 2 DIABETES MELLITUS WITHOUT COMPLICATIONS SNOMED Code(s): 06656456 Comment: Continue BID metformin. Low dose HISS. Resume sitagliptin 12/26. Adequate glycemic control as of 12/25, (3) Atrial fibrillation Current Visit: Yes Status: Acute Code(s): I48.91 - UNSPECIFIED ATRIAL FIBRILLATION SNOMED Code(s): 69488060 Comment: PAF. L atrium mild to mod dilatation on echo 12/24. Would do outpt cardiac monitroing to see what his atrial fib burden is. (4) Transaminitis Current Visit: Yes Status: Acute Code(s): R74.0 - NONSPEC ELEV OF LEVELS OF TRANSAMNS & LACTIC ACID DEHYDRGNSE SNOMED Code(s): 169463352 Comment: US negative. AST/ALT/Bili trending down. Needs outpt fup. Status and Disposition: Inpatient for IV ABx, new onset AFib
[2016-12-25] MEDS: ceFAZolin 2 GM PREMIX(*) 2 GM/50 ML BAG IVPB SCH ×2 (13:08→21:04)
[2016-12-25] MEDS: Collagenase 250 MG/GM OINT* 30 GM TOPICAL SCH (17:02)
[2016-12-25] MEDS: Neosporin TOPICAL OINT* 1 EA PACKET TOPICAL SCH (17:05)
[2016-12-26] MEDS: Diltiazem TAB* 30 MG PO SCH ×2 (00:02→05:29)
[2016-12-26] MEDS: ceFAZolin 2 GM PREMIX(*) 2 GM/50 ML BAG IVPB SCH (05:29)
[2016-12-26] MEDS ORDERED: CMC: SitaGLIPtin (NF) 100 MG TAB PO SCH (09:00)
[2016-12-26 09:02] VITALS: BP 125/64
--- NOTE | 2016-12-26 09:12 | PN ---
Progress Note - Progress Note Date of Service: 12/26/16 Note: Time spent on discharge 40 minutes.
[2016-12-26] MEDS: Insulin LISPRO* 1 UNITS UNIT SUBCUT SCH (09:21)
[2016-12-26] MEDS: Neosporin TOPICAL OINT* 1 EA PACKET TOPICAL SCH (09:23)
[2016-12-26] MEDS: Enoxaparin(*) 100 MG/ML SYR SUBCUT SCH (09:23)
[2016-12-26] MEDS: metFORMIN* 850 MG TAB PO SCH (09:23)
--- NOTE | 2016-12-27 02:55 | DS ---
CC: Dr. Lundberg * DISCHARGE SUMMARY: DATE OF ADMISSION: 12/22/16 DATE OF DISCHARGE: 12/26/16 HOSPITAL COURSE: This is a 66-year-old man presenting with pain probably in both feet. He was doing a lot of work in his house, getting prepared to move. He said he was working 22 hours a day. He was working in wet conditions, his socks were wet. Mostly, he is concerned about the appearance of his feet. He also stated he had not taken his diabetes medications for 4 to 5 days. He had not been checking his blood sugars. He said his medications had been in the box and moved to his new residence and he did not have access to them. He also said he lost about 25 pounds, although when he was right here he seemed to have gained a lot of weight back. There was bilateral ulceration of both lower feet, a little worse on the left. He had an MRI of the feet, which did not show any evidence of abscess. There was minimal edema at the bone marrow and the toe, which could be related to the overlying cellulitis. He was followed by Dr. Wilson over the weekend, he improved quite a bit. The wound care nurse came up and felt that the only wound care he needed was Band-Aids with the topical antibiotic. He did have an episode of atrial fibrillation on 12/23/16. This lasted at most a few hours. Echocardiogram was unremarkable except for [id number] left atrial dilatation. He had no further episodes of atrial fibrillation through the time of his discharge. His diabetes is out of control in the hospital. He was treated with cefazolin in the hospital. Dr. Wilson recommended cephalexin 500 mg t.i.d. for 14 days. He had transaminitis but the levels had improved here and he never had a very major elevation. His ALT was 74 and then fell to 51, which is normal. His AST was 131 and then fell to 70, which is still mildly elevated. It should be repeated in a week or two. He was mildly anemic with hematocrit of 36. His MCV was 97. Creatinine was 0.61. The patient is being sent to have a Holter monitor applied during discharge. If there is any question, it may be worth getting a 3 or 4 week outpatient cardiac monitoring to see if he has any recurrence of atrial fibrillation and what his burden is. Hopefully, his atrial fibrillation is related to his acute infection but as he was completely asymptomatic during his atrial fibrillation, I could not say whether he has this on a more frequent basis at home. FINAL DIAGNOSES: 1. Cellulitis and superficial ulcers, both feet. 2. Diabetes. 3. Paroxysmal atrial fibrillation. 4. Transaminitis. DISCHARGE MEDICATIONS: 1. Cephalexin 500 mg t.i.d. for 14 days. 2. Acetaminophen 650 mg every 4 hours p.r.n. 3. Metformin 850 mg b.i.d. 4. Sitagliptin 100 mg daily. [id number]/[facility] #: [id number] MTDD
--- NOTE | 2016-12-27 10:57 | PN ---
Progress Note - Progress Note Date of Service: 12/26/16 Note: Additional diagnosis: bilateral trench foot with multiple BL foot ulcerations and cellulitis.
== END 2016-12-26 11:50 | disposition home or self-care (01) | DRG 638 ==
LOC: ED 09:25 → MED 14:01 → OBSVTOIN 12-22 14:22 → MEDTELE 12-23 08:28
PROVIDERS: ADMIT Hospitalist; ATTEND Internal Medicine
DX: E11.621 Type 2 diabetes mellitus with foot ulcer (principal); T69.022A Immersion foot, left foot, initial encounter; L97.521 Non-pressure chronic ulcer of other part of left foot limited to breakdown of skin; L97.511 Non-pressure chronic ulcer of other part of right foot limited to breakdown of skin; E11.51 Type 2 diabetes mellitus with diabetic peripheral angiopathy without gangrene; T69.021A Immersion foot, right foot, initial encounter; I48.0 Paroxysmal atrial fibrillation; E11.65 Type 2 diabetes mellitus with hyperglycemia; L03.032 Cellulitis of left toe; B95.61 Methicillin susceptible Staphylococcus aureus infection as the cause of diseases classified elsewhere; R74.0 Nonspecific elevation of levels of transaminase and lactic acid dehydrogenase [LDH]; M60.872 Other myositis, left ankle and foot; M60.871 Other myositis, right ankle and foot; Z79.84 Long term (current) use of oral hypoglycemic drugs; Z79.899 Other long term (current) drug therapy; Z83.3 Family history of diabetes mellitus; Z79.01 Long term (current) use of anticoagulants; W99 Exposure to other man-made environmental factors
CPT/HCPCS: 36415; 70030; 76705; 80048; 80053; 80202; 82565; 83605; 83735; 83880; 84443; 84484; 84520; 85025; 86141; 87040; 87070; 87077; 87186; 87205; 87640; 87641; 93005; 93306; 93922; A9270-GY; G0378; J0690; J0692; J0696; J1650; J1940; J3370; J3475

== ENCOUNTER 2016-12-27 14:04 | Observation (INO) | payer MEDICARE, MEDICAID ==
[2016-12-27 14:51] LABS: Hematocrit 40 % (42-52); Hemoglobin 13.3 g/dl (14.0-18.0); Mean Corpuscular HGB Conc 33 g/dl (31-36); Mean Corpuscular Hemoglobin 32 pg (27-31); Mean Corpuscular Volume 98 fL (80-94); Mean Platelet Volume 8 um3 (7.4-10.4); Red Blood Count 4.12 10^6/ul (4.0-5.4); Red Cell Distribution Width 13 % (10.5-15); White Blood Count 8.6 10^3/ul (3.5-10.8)
[2016-12-27] MEDS ORDERED: Diltiazem IV* 5 MG/ML 5 ML VIAL (for loading dose/IV Push) (25 MG) IV SLOW PU ONE (14:51)
[2016-12-27] MEDS ORDERED: Diltiazem IV VIAL* 125 MG in D5W 100 ML BAG* 100 ML IV ONE (14:51)
[2016-12-27] MEDS ORDERED: Diltiazem DRIP* 100 MG/100 ML ADDV.BAG IVPB ONE ×2 (14:59→16:00)
[2016-12-27 15:12] LABS: Albumin 3.1 g/dL (3.2-5.2); BUN/Creatinine Ratio 29.8 (8-20); EGFR African American 117.2 (>60); EGFR Non-African American 91.1 (>60); Globulin 3.7 g/dL (2-4); Magnesium 1.9 mg/dL (1.9-2.7); Total Bilirubin 0.7 mg/dL (0.2-1.0); Total Protein 6.8 g/dL (6.4-8.9)
--- NOTE | 2016-12-27 15:12 | RAD ---
Indication: New atrial fibrillation. Single frontal view of the chest performed at 1450 hours was reviewed. Comparison is made with previous exam dated May 22, 2003. Cardiomegaly is noted. No mediastinal shift is noted. Heart is of normal size and configuration. IMPRESSION: NO ACTIVE CARDIOPULMONARY DISEASE IS NOTED.
[2016-12-27] MEDS ORDERED: Metoprolol Tartrate TAB* 25 MG PO ONE ×2 (15:23→18:21)
[2016-12-27] MEDS ORDERED: Acetaminophen TAB* 325 MG PO PRN (15:26)
[2016-12-27] MEDS: Cephalexin CAP* 500 MG PO SCH ×2 (15:33→21:05)
[2016-12-27] MEDS ORDERED: Dextrose 50% Syringe 50 ML* 25 GM/50 ML SYRINGE IV PUSH PRN (15:42)
--- NOTE | 2016-12-27 15:48 | ED ---
Cory Lucas Benjamin, scribed for Sadie Gant MD on 12/27/16 at 1538 . Palpitations / Dysrhythmia - HPI Summary HPI Summary: 66yo male with a hx of afib who was recently seen for afib and cellulitis a few days ago, but was sent home with Holter Monitor as pt was converted out of afib returns to ED with new onset afib. Pt is also currently on abx for his cellulitis. Pt reports dizziness, but denies CP or SOB. Pt is diabetic. Negative for CAD or CVA. FHx of CAD. - History of Current Complaint Chief Complaint: EDDysrhythmPalp Time Seen by Provider: 12/27/16 14:25 Hx Obtained From: Patient Onset/Duration: Lasting Hours, Still Present Timing: Constant Severity Initially: Mild Severity Currently: Mild Character: Irregular Aggravating: Nothing Alleviating: Nothing Associated Signs & Symptoms: Dizzy - Allergy/Home Medications Allergies/Adverse Reactions: Allergies Allergy/AdvReac Type Severity Reaction Status Date / Time Grass and hay Allergy Rash Uncoded 12/21/16 09:30 Home Medications: Home Medications SitaGLIPtin (NF) [Januvia (NF)] 100 mg PO DAILY 12/27/16 [History Confirmed 07/14] metFORMIN* [Glucophage 850 MG TAB *] 850 mg PO BID 12/27/16 [History Confirmed 12/27/16] PMH/Surg Hx/FS Hx/Imm Hx Endocrine/Hematology History: Reports: Hx Diabetes Cardiovascular History: Denies: Hx Pacemaker/ICD Sensory History: Reports: Hx Contacts or Glasses - reading glasses Denies: Hx Hearing Aid Opthamlomology History: Reports: Hx Contacts or Glasses - reading glasses Psychiatric History: Denies: Hx Panic Disorder Infectious Disease History: No Infectious Disease History: Denies: Traveled Outside the [place] in Last 30 Days - Family History Known Family History: Positive: Cardiac Disease, Diabetes - Social History Occupation: Employed Full-time Lives: Alone Alcohol Use: None Substance Use Type: Reports: None Smoking Status (MU): Never Smoked Tobacco Review of Systems Constitutional: Negative Eyes: Negative ENT: Negative Positive: Palpitations Negative: Shortness Of Breath Gastrointestinal: Negative Genitourinary: Negative Musculoskeletal: Negative Skin: Negative Neurological: Other - dizziness Psychological: Normal All Other Systems Reviewed And Are Negative: Yes Physical Exam Triage Information Reviewed: Yes Vital Signs On Initial Exam: Initial Vitals Temp Pulse Resp BP Pulse Ox 98.3 F 100 18 111/67 95 12/27/16 14:14 12/27/16 14:14 12/27/16 14:14 12/27/16 14:14 12/27/16 14:14 Vital Signs Reviewed: Yes Appearance: Positive: Well-Appearing, No Pain Distress, Well-Nourished Skin: Positive: Warm, Skin Color Reflects Adequate Perfusion, Dry, Erythema @ - erythematous and excoriated areas in bilateral feet, up to legs., Other - erythematous and excoriated areas in bilateral feet, up to legs. Head/Face: Positive: Normal Head/Face Inspection Eyes: Positive: EOMI, CAT ENT: Positive: Normal ENT inspection Neck: Positive: Supple, Nontender Respiratory/Lung Sounds: Positive: Clear to Auscultation, Breath Sounds Present Cardiovascular: Positive: RRR Abdomen Description: Positive: Soft, Hernia @ - ventral hernia Bowel Sounds: Positive: Present Musculoskeletal: Positive: Strength/ROM Intact Neurological: Positive: Sensory/Motor Intact, Alert, Oriented to Person Place, Time, CN Intact II-III Psychiatric: Positive: Affect/Mood Appropriate Diagnostics - Vital Signs Vital Signs Temp Pulse Resp BP Pulse Ox 12/27/16 14:14 98.3 F 100 18 111/67 95 - Laboratory Lab Results: Lab Results 12/27/16 Range/Units 14:40 WBC 8.6 (3.5-10.8) 10^3/ul RBC 4.12 (4.0-5.4) 10^6/ul Hgb 13.3 L (14.0-18.0) g/dl Hct 40 L (42-52) % MCV 98 H (80-94) fL MCH 32 H (27-31) pg MCHC 33 (31-36) g/dl RDW 13 (10.5-15) % Plt Count 251 (150-450) 10^3/ul MPV 8 (7.4-10.4) um3 Neut % (Auto) 62.5 (38-83) % Lymph % (Auto) 26.0 (25-47) % Weber % (Auto) 8.5 (1-9) % Eos % (Auto) 2.0 (0-6) % Baso % (Auto) 1.0 (0-2) % Absolute Neuts (auto) 5.3 (1.5-7.7) 10^3/ul Absolute Lymphs (auto) 2.2 (1.0-4.8) 10^3/ul Absolute Monos (auto) 0.7 (0-0.8) 10^3/ul Absolute Eos (auto) 0.2 (0-0.6) 10^3/ul Absolute Basos (auto) 0.1 (0-0.2) 10^3/ul Absolute Nucleated RBC 0 10^3/ul Nucleated RBC % 0 Result Diagrams: 12/27/16 14:40 12/27/16 14:40 Lab Statement: Any lab studies that have been ordered have been reviewed, and results considered in the medical decision making process. - Radiology CXR Xray Interpretation: No Acute Changes Radiology Interpretation Completed By: Radiologist - EKG 1435. Cardiac Rate: Tachycardia - 121bpm EKG Rhythm: Atrial Fibrillation ST Segment: Normal Ectopy: None Course/Dx - Course Course Of Treatment: Reviewed pt's medications list and allergies. Blood pressure noted. Discussed with Dr. Hartley (Hospitalist) for possible admission at 1458. - Diagnoses Provider Diagnoses: Atrial fibrillation Discharge - Discharge Plan Condition: Stable Disposition: ADMITTED TO [facility] The documentation as recorded by the Cory del rosario Benjamin accurately reflects the service I personally performed and the decisions made by , Sadie Gant MD.
--- NOTE | 2016-12-27 15:55 | ADMNOTE ---
Subjective Date of Service: 12/27/16 Interval History: ADMISSION HISTORY AND PHYSICAL EXAM: Allergies Allergy/AdvReac Type Severity Reaction Status Date / Time Grass and hay Allergy Rash Uncoded 12/21/16 09:30 Home Medications Medication Instructions Recorded Confirmed Type Acetaminophen TAB* [Tylenol TAB*] 650 mg PO Q4H PRN #0 tab 12/26/16 12/27/16 Rx Cephalexin CAP* [Keflex 500 CAP*] 500 mg PO TID #42 cap 12/26/16 12/27/16 Rx SitaGLIPtin (NF) [Januvia (NF)] 100 mg PO DAILY 12/27/16 12/27/16 History metFORMIN* [Glucophage 850 MG TAB 850 mg PO BID 12/27/16 12/27/16 History *] HPI: Patient was discharged yesterday from [facility] (by me) with a Holter monitor in place. He occ had very mild dizziness for short periods. No palpitations, LOC , falling, chest pain. He brought the Holter back to [facility] this morning then went to his appt with his PCP Cale Lundberg. She told him the Holter showed he was mostly in atrial fib and sent him to the ED. The bandaid he had on at the time of discharge fell off yesterday. H was planning to later go to his gym to wash his feet and apply antibiotic ointment and another bandaid. Family History: Findings - Father had DM, ESRD. Mother had dementia. Social History: Findings - No alcohol or tobacco use. Occ drinks tea. Lives alone, no electricity or running water. SDM is his brother Rocky Escalante who lives in [place]. Past Medical History: Findings - DM with neuropathy Review of Systems - Measurements Intake and Output: Intake and Output Last 24 Hours 12/25/16 12/26/16 12/27/16 12/28/16 06:59 06:59 06:59 06:59 Weight 211 lb - Review of Systems Constitutional Symptoms: Negative: Weight Gain, Weight Loss, Weakness, Fatigue, Fever, Night Sweats, Unexplained Falls, Other Dermatology: Positive: Other - cellulitis both feet HEENT: Positive: Normal Eyes: Positive: Normal Thyroid: Positive: Normal Pulmonary: Positive: Normal Cardiology: Positive: Other - PAF Gastroenterology: Positive: Normal Genital - Urinary: Positive: Normal Musculoskeletal: Negative: Joint Pain, Joint Stiffness, Arthritis, Osteoporosis, Low Back Pain , Sciatica, Joint Deformities, Kyphoscoliosis, Other Endocrinology: Positive: Diabetes Mellitus Hematologic/Lymphatic: Negative: Anemia, Easy Brusing, Hx Leukemia, Hx Lymphoma, Use of Anticoagulant, Use of Antiplatelet Drugs, Other Neurology: Positive: Normal Psychiatry: Positive: Normal Allergic/Immunologic: Negative: Hx Anaphylaxis, Hx Angioedema, Hx Environmental, Hx Seasonal, Athsma, Hx HIV, Immunocompromise, Swollen Glands LymphNodes, Other Objective Active Medications: Acetaminophen (Tylenol Tab*) 650 mg PO Q4H PRN PRN Reason: FEVER/PAIN Cephalexin HCl (Keflex Cap*) 500 mg PO TID KOLBY Last Admin: 12/27/16 15:33 Dose: 500 mg Dextrose (D50w Syringe 50 Ml*) 12.5 gm IV PUSH .FOR FS < 60 - SS PRN PRN Reason: FS < 60 Diltiazem HCl (Cardizem Iv Advan*) 100 mg in 100 mls @ 10 mls/hr IVPB ED ONCE ONE Stop: 12/28/16 01:59 Last Admin: 12/27/16 15:06 Dose: 10 mls/hr Insulin Human Lispro (Humalog*) 0 units SUBCUT AC KOLBY PRN Reason: Protocol Metformin HCl (Glucophage*) 850 mg PO BID KOLBY Rivaroxaban (Xarelto(*)) 20 mg PO DAILY KOLBY Sitagliptin Phosphate (Januvia (Nf)) 100 mg PO DAILY [facility] PRN Reason: Protocol Vital Signs 12/27/16 12/27/16 12/27/16 14:14 14:19 14:21 Temperature 98.3 F Pulse Rate 100 85 Respiratory 18 21 Rate Blood Pressure 111/67 102/71 (mmHg) O2 Sat by Pulse 95 94 Oximetry 12/27/16 12/27/16 14:30 15:00 Temperature Pulse Rate 124 86 Respiratory 24 22 Rate Blood Pressure 110/71 115/67 (mmHg) O2 Sat by Pulse 93 94 Oximetry Oxygen Devices in Use Now: None Appearance: Alert, partly up on ED stretcher. Eyes: No Scleral Icterus Ears/Nose/Mouth/Throat: Clear Oropharnyx, Mucous Membranes Moist Neck: NL Appearance and Movements; NL JVP, No Thyroid Enlargement, Masses Respiratory: Symmetrical Chest Expansion and Respiratory Effort, Clear to Auscultation, Clear to Percussion Cardiovascular: NL Sounds; No Murmurs; No JVD, No Edema, - - irreg Extremities: No Edema, No Clubbing, Cyanosis, - Skin: - - superficial ulcer plantar surface L great toe. Patchy erythema both feet. Neurological: Alert and Oriented x 3, - - diminished sensation both feet Result Diagrams: 12/27/16 14:40 12/27/16 14:40 Additional Lab and Data: Lab Results 12/27/16 Range/Units 14:40 WBC 8.6 (3.5-10.8) 10^3/ul RBC 4.12 (4.0-5.4) 10^6/ul Hgb 13.3 L (14.0-18.0) g/dl Hct 40 L (42-52) % MCV 98 H (80-94) fL MCH 32 H (27-31) pg MCHC 33 (31-36) g/dl RDW 13 (10.5-15) % Plt Count 251 (150-450) 10^3/ul MPV 8 (7.4-10.4) um3 Neut % (Auto) 62.5 (38-83) % Lymph % (Auto) 26.0 (25-47) % [place] % (Auto) 8.5 (1-9) % Eos % (Auto) 2.0 (0-6) % Baso % (Auto) 1.0 (0-2) % Absolute Neuts (auto) 5.3 (1.5-7.7) 10^3/ul Absolute Lymphs (auto) 2.2 (1.0-4.8) 10^3/ul Absolute Monos (auto) 0.7 (0-0.8) 10^3/ul Absolute Eos (auto) 0.2 (0-0.6) 10^3/ul Absolute Basos (auto) 0.1 (0-0.2) 10^3/ul Absolute Nucleated RBC 0 10^3/ul Nucleated RBC % 0 Assess/Plan/Problems-Billing Assessment: - Patient Problems (1) Atrial fibrillation Current Visit: No Status: Acute Code(s): I48.91 - UNSPECIFIED ATRIAL FIBRILLATION SNOMED Code(s): 41068075 Comment: PAF. L atrium mild to mod dilatation on echo 12/24. In atrial fib the middle 21 hrs of the Holter monitor. I would recommend life-long rate control and anticoagulation. [id number] score of 2. (2) Diabetes Current Visit: No Status: Acute Code(s): E11.9 - TYPE 2 DIABETES MELLITUS WITHOUT COMPLICATIONS SNOMED Code(s): 23940344 Comment: Continue BID metformin, sitagliptin. SSI ac. (3) Diabetic foot ulcer Current Visit: No Status: Acute Code(s): E11.621 - TYPE 2 DIABETES MELLITUS WITH FOOT ULCER; L97.509 - NON-PRESSURE CHRONIC ULCER OTH PRT UNSP FOOT W UNSP SEVERITY SNOMED Code(s): 930444077 Comment: Both feet affected. Complete cephalexin course. Bacitracin ointment, then wrap toes in 1 inch gauze, cover forefoot with 4 inch gauze.
[2016-12-27 16:14] LABS: Troponin I 0.05 ng/mL (<0.04)
[2016-12-27] MEDS: Insulin LISPRO* 1 UNITS UNIT SUBCUT SCH (17:12)
[2016-12-27] MEDS: Rivaroxaban TAB(*) 20 MG TAB PO SCH (17:29)
[2016-12-27] MEDS ORDERED: Metoprolol Tartrate TAB* 25 MG PO SCH (21:00)
[2016-12-27] MEDS: metFORMIN* 850 MG TAB PO SCH (21:06)
[2016-12-27] MEDS: Metoprolol Tartrate TAB* 50 mg PO SCH (21:06)
[2016-12-28] MEDS: Insulin LISPRO* 1 UNITS UNIT SUBCUT SCH (08:02)
[2016-12-28 08:03] VITALS: BP 122/73
[2016-12-28] MEDS: Metoprolol Tartrate TAB* 50 mg PO SCH (08:10)
[2016-12-28] MEDS: metFORMIN* 850 MG TAB PO SCH (08:10)
[2016-12-28] MEDS: Rivaroxaban TAB(*) 20 MG TAB PO SCH (08:10)
[2016-12-28] MEDS: Cephalexin CAP* 500 MG PO SCH (08:10)
[2016-12-28] MEDS ORDERED: CMCS:SitaGLIPtin (NF) 100 MG TAB PO SCH (09:00)
--- NOTE | 2016-12-29 03:17 | DS ---
CC: Dr. Lundberg * DISCHARGE SUMMARY: DATE OF ADMISSION: DATE OF DISCHARGE: 12/28/16 HOSPITAL COURSE: This is a 66-year-old man presented from Dr. Lundberg's office with atrial fibrillation with rapid ventricular rate. He had paroxysmal atrial fibrillation in the hospital. He was treated for a foot infection. He was in sinus rhythm when he went home. It was felt that with improvement in his foot infection, his atrial fibrillation will not recur. He did have echocardiogram and TSH during the last hospital stay, both of which were unremarkable. Holter monitor he had on discharge showed he was in atrial fibrillation for a majority of the time, although he was back in sinus rhythm early in the morning of the day of admission. Dr. Lundberg had the report of the Holter monitor and sent him to the hospital. At that time, he was again in atrial fibrillation with rates about 115 to 120. The patient was admitted to telemetry unit. He was started on rivaroxaban and metoprolol. On the day of discharge, his heart rate was about 75, in atrial fibrillation. He remained completely asymptomatic as he had been before. FINAL DIAGNOSES: 1. Atrial fibrillation. 2. Diabetes. 3. Diabetic foot ulcer. DISCHARGE MEDICATIONS: 1. Cephalexin 500 mg t.i.d. to finish a 2-week course. 2. Rivaroxaban 20 mg daily. 3. Metoprolol succinate 100 mg daily. 4. Acetaminophen 650 mg every 4 hours p.r.n. 5. Metformin 850 mg b.i.d. 6. Sitagliptin 100 mg daily. [id number]/[facility] #: [id number] MTDD
== END 2016-12-28 10:40 | disposition home or self-care (01) ==
LOC: ED 14:04 → MEDTELE 15:54
PROVIDERS: ADMIT Internal Medicine; ATTEND Internal Medicine
DX: I48.0 Paroxysmal atrial fibrillation (principal); L03.032 Cellulitis of left toe; E11.621 Type 2 diabetes mellitus with foot ulcer; Z79.84 Long term (current) use of oral hypoglycemic drugs
CPT/HCPCS: 36415; 71010; 80053; 83605; 83735; 84443; 84484; 85025; 93005; 96372; 96374; 99285; A9270-GY; G0378

== ENCOUNTER 2017-02-07 11:59 | Inpatient (IN) | payer MEDICARE, MEDICAID ==
[2017-02-07] MEDS ORDERED: metroNIDAZOLE IV 500 MG/100ML* 500 MG/100 ML BAG IVPB ONE (14:11)
[2017-02-07] MEDS ORDERED: Cefepime(*) 2 GM in NS 0.9% 50 ML* 50 ML IVPB ONE (14:11)
--- NOTE | 2017-02-07 14:38 | RAD ---
HISTORY: Trauma, infected foot COMPARISONS: December 21, 2016 VIEWS: 3, Frontal, lateral, and oblique views of the left foot FINDINGS: BONE DENSITY: Normal. BONES: There is no displaced fracture. There is no appreciable erosion or periosteal reaction. There are calcaneal enthesophytes. JOINTS: There is osteoporosis of the first MTP joint and mild osteoarthritis of the midfoot and ankle. ALIGNMENT: There is no dislocation. SOFT TISSUES: Unremarkable. OTHER FINDINGS: None. IMPRESSION: NO ACUTE OSSEOUS INJURY. NO APPRECIABLE EROSION OR PERIOSTEAL REACTION. PLAIN FILM FINDINGS OF OSTEOMYELITIS ARE RELATIVELY LATE FINDINGS. IF THERE IS PERSISTENT CLINICAL CONCERN FOR OSTEOMYELITIS, RECOMMEND CORRELATION WITH FOLLOWUP IMAGING, THREE-PHASE BONE SCANNING, WHITE BLOOD CELL SCAN, AND/OR MRI OF THE AFFECTED REGION.
[2017-02-07 14:41] LABS: Hematocrit 39 % (42-52); Hemoglobin 13.1 g/dl (14.0-18.0); Mean Corpuscular HGB Conc 34 g/dl (31-36); Mean Corpuscular Hemoglobin 32 pg (27-31); Mean Corpuscular Volume 94 fL (80-94); Mean Platelet Volume 8 um3 (7.4-10.4); Red Blood Count 4.16 10^6/ul (4.0-5.4); Red Cell Distribution Width 13 % (10.5-15); White Blood Count 11.1 10^3/ul (3.5-10.8)
[2017-02-07] MEDS ORDERED: Vancomycin(*) 1,000 MG VIAL IVPB SCH (15:00)
[2017-02-07 15:05] LABS: Troponin I 0.01 ng/mL (<0.04)
[2017-02-07 15:08] LABS: Albumin 3.6 g/dL (3.2-5.2); BUN/Creatinine Ratio 20.8 (8-20); C Reactive Protein 106.27 mg/L (< 5.00); Calcium 9.5 mg/dL (8.6-10.3); EGFR Non-African American 108.9 (>60); Globulin 3.7 g/dL (2-4); Potassium 4.1 mmol/L (3.5-5.0); Total Bilirubin 2.7 mg/dL (0.2-1.0); Total Protein 7.3 g/dL (6.4-8.9)
[2017-02-07] MEDS: NS 0.9% 1000 ML* 3,000 ML IV ONE ×2 (15:20→17:11)
[2017-02-07 15:52] LABS: Erythrocyte Sed Rate 101 mm/Hr (0-40)
[2017-02-07] MEDS ORDERED: Al Hydrox/Mg Hydrox/Simet LIQ* 30 ML UDC PO PRN (16:02)
[2017-02-07] MEDS ORDERED: Acetaminophen TAB* 325 MG PO PRN (16:02)
[2017-02-07] MEDS ORDERED: Vancomycin(*) 1,000 MG - ED ONCE IVPB ONE ×2 (16:10)
[2017-02-07] MEDS ORDERED: Zosyn per Pharmacy* NOTE FOLLOW UP SCH (17:00)
--- NOTE | 2017-02-07 17:23 | ED ---
Garry Lucas Angela, scribed for Benja Virgen MD on 02/07/17 at 1410 . Lower Extremity - HPI Summary HPI Summary: This pt is a 66 y/o male presenting to [facility] c/o left great toe pain x3 days. Pt reports he saw his PCP 2 days ago for this complaint and was prescribed Cephalexin, TID. He was also told he was in atrial fibrillation during this visit. He states there has been no improvement at all with the antibiotic prescribed. Pt describes his left great toe is red. He additionally c/o bilateral hahn and calf pain. He states he was working with heavy metals on Sunday, and notes the possibility of dropping one on his toe. Pt is a diabetic, for 17 years now. Pt denies chest pain, SOB, back pain, abd pain. Pt is anticoagulated on xarelto. He notes that on December 21 he had a procedure done where a part of skin was removed from the plantar aspect of his left great toe. - History of Current Complaint Chief Complaint: EDExtremitSamanthaower Stated Complaint: LT FOOT COMPLAINT/SENT BY DR Polk Seen by Provider: 02/07/17 13:40 Hx Obtained From: Patient Onset of Pain: Days Onset/Duration: Days Pain Intensity: 4 Pain Scale Used: 0-10 Numeric Location: Is Discrete @ - left great toe Associated Signs And Symptoms: Positive: Redness, Other - bilateral hahn and calf pain. Negative: Knee Pain - Allergies/Home Medications Allergies/Adverse Reactions: Allergies Allergy/AdvReac Type Severity Reaction Status Date / Time Grass and hay Allergy Rash Uncoded 12/21/16 09:30 Home Medications: Home Medications Metoprolol Succinate XL TAB* [Toprol XL TAB*] 100 mg PO DAILY 02/07/17 [History Confirmed 02/07/17] PMH/Surg Hx/FS Hx/Imm Hx Endocrine/Hematology History: Reports: Hx Diabetes Cardiovascular History: Denies: Hx Pacemaker/ICD Musculoskeletal History: Denies: Hx Arthritis, Hx Osteoporosis Sensory History: Reports: Hx Contacts or Glasses - reading glasses Denies: Hx Hearing Aid Opthamlomology History: Reports: Hx Contacts or Glasses - reading glasses Neurological History: Reports: Other Neuro Impairments/Disorders - NEUROPATHY Psychiatric History: Denies: Hx Panic Disorder Infectious Disease History: Denies: Traveled Outside the [place] in Last 30 Days - Family History Known Family History: Positive: Cardiac Disease, Diabetes - Social History Alcohol Use: None Substance Use Type: Reports: None Smoking Status (MU): Never Smoked Tobacco Review of Systems Negative: Fever, Chills Eyes: Negative ENT: Negative Negative: Palpitations, Chest Pain Negative: Shortness Of Breath Gastrointestinal: Negative Genitourinary: Negative Positive: Other - left great toe pain. Calf and hahn pain. Positive: Other - redness on left great toe. Negative: Headache, Weakness All Other Systems Reviewed And Are Negative: Yes Physical Exam - Summary Physical Exam Summary: The patient is well-nourished in no acute distress and in no acute pain. The skin is warm and dry and skin color reflects adequate perfusion. HEENT: The head is normocephalic and atraumatic. The pupils are equal and reactive. The conjunctivae are clear and without drainage. Nares are patent and without drainage. Mouth reveals moist mucous membranes and the throat is without erythema and exudate. The external ears are intact. The ear canals are patent and without drainage. The tympanic membranes are intact. Neck is supple with full range of motion and non-tender. Respiratory: Chest is non-tender. Lungs are clear to auscultation and breath sounds are symmetrical and equal. Cardiovascular: Hear is regular rate and rhythm. There is no murmur or rub auscultated. There is no peripheral edema up to the knees. Abdomen: The abdomen is soft and non-tender. There are normal bowel sounds heard in all four quadrants. Musculoskeletal: There is no back pain noted. Extremities are non-tender with full range of motion. There is good capillary refill. There is peripheral edema up to the knees. There is marked swelling in the 4th and 5th left toes. There is 15 cm of erythema that is warm. Neurological: Patient is alert and oriented to person, place and time. The patient has symmetrical motor strength in all four extremities. Psychiatric: The patient has an appropriate affect and does not exhibit any anxiety or depression. Triage Information Reviewed: Yes Vital Signs On Initial Exam: Initial Vitals Temp Pulse Resp BP Pulse Ox 98 F 71 16 116/81 98 02/07/17 12:06 02/07/17 12:06 02/07/17 12:06 02/07/17 12:06 02/07/17 12:06 Vital Signs Reviewed: Yes Diagnostics - Vital Signs Vital Signs Temp Pulse Resp BP Pulse Ox 02/07/17 12:06 98 F 71 16 116/81 98 - Laboratory Lab Results: Lab Results 02/07/17 02/07/17 02/07/17 Range/Units 14:25 14:25 14:25 WBC 11.1 H (3.5-10.8) 10^3/ul RBC 4.16 (4.0-5.4) 10^6/ul Hgb 13.1 L (14.0-18.0) g/dl Hct 39 L (42-52) % MCV 94 (80-94) fL MCH 32 H (27-31) pg MCHC 34 (31-36) g/dl RDW 13 (10.5-15) % Plt Count 219 (150-450) 10^3/ul MPV 8 (7.4-10.4) um3 Neut % (Auto) 79.0 (38-83) % Lymph % (Auto) 13.1 L (25-47) % [place] % (Auto) 6.2 (1-9) % Eos % (Auto) 1.0 (0-6) % Baso % (Auto) 0.7 (0-2) % Absolute Neuts (auto) 8.7 H (1.5-7.7) 10^3/ul Absolute Lymphs (auto) 1.4 (1.0-4.8) 10^3/ul Absolute Monos (auto) 0.7 (0-0.8) 10^3/ul Absolute Eos (auto) 0.1 (0-0.6) 10^3/ul Absolute Basos (auto) 0.1 (0-0.2) 10^3/ul Absolute Nucleated RBC 0 10^3/ul Nucleated RBC % 0 ESR 101 H (0-40) mm/Hr INR (Anticoag Therapy) 1.90 H (0.89-1.11) APTT 37.8 H (26.0-36.3) seconds Sodium 137 (133-145) mmol/L Potassium 4.1 (3.5-5.0) mmol/L Chloride 104 (101-111) mmol/L Carbon Dioxide 26 (22-32) mmol/L Anion Gap 7 (2-11) mmol/L BUN 15 (6-24) mg/dL Creatinine 0.72 (0.67-1.17) mg/dL Est GFR ( Amer) 140.0 (>60) Est GFR (Non-Af Amer) 108.9 (>60) BUN/Creatinine Ratio 20.8 H (8-20) Glucose 110 H (70-100) mg/dL Lactic Acid (0.5-2.0) mmol/L Calcium 9.5 (8.6-10.3) mg/dL Total Bilirubin 2.70 H (0.2-1.0) mg/dL AST 14 (13-39) U/L ALT 11 (7-52) U/L Alkaline Phosphatase 73 (34-104) U/L Troponin I 0.01 (<0.04) ng/mL C-Reactive Protein 106.27 H (< 5.00) mg/L Total Protein 7.3 (6.4-8.9) g/dL Albumin 3.6 (3.2-5.2) g/dL Globulin 3.7 (2-4) g/dL Albumin/Globulin Ratio 1.0 (1-3) 02/07/17 Range/Units 14:25 WBC (3.5-10.8) 10^3/ul RBC (4.0-5.4) 10^6/ul Hgb (14.0-18.0) g/dl Hct (42-52) % MCV (80-94) fL MCH (27-31) pg MCHC (31-36) g/dl RDW (10.5-15) % Plt Count (150-450) 10^3/ul MPV (7.4-10.4) um3 Neut % (Auto) (38-83) % Lymph % (Auto) (25-47) % [place] % (Auto) (1-9) % Eos % (Auto) (0-6) % Baso % (Auto) (0-2) % Absolute Neuts (auto) (1.5-7.7) 10^3/ul Absolute Lymphs (auto) (1.0-4.8) 10^3/ul Absolute Monos (auto) (0-0.8) 10^3/ul Absolute Eos (auto) (0-0.6) 10^3/ul Absolute Basos (auto) (0-0.2) 10^3/ul Absolute Nucleated RBC 10^3/ul Nucleated RBC % ESR (0-40) mm/Hr INR (Anticoag Therapy) (0.89-1.11) APTT (26.0-36.3) seconds Sodium (133-145) mmol/L Potassium (3.5-5.0) mmol/L Chloride (101-111) mmol/L Carbon Dioxide (22-32) mmol/L Anion Gap (2-11) mmol/L BUN (6-24) mg/dL Creatinine (0.67-1.17) mg/dL Est GFR ( Amer) (>60) Est GFR (Non-Af Amer) (>60) BUN/Creatinine Ratio (8-20) Glucose (70-100) mg/dL Lactic Acid 1.1 (0.5-2.0) mmol/L Calcium (8.6-10.3) mg/dL Total Bilirubin (0.2-1.0) mg/dL AST (13-39) U/L ALT (7-52) U/L Alkaline Phosphatase (34-104) U/L Troponin I (<0.04) ng/mL C-Reactive Protein (< 5.00) mg/L Total Protein (6.4-8.9) g/dL Albumin (3.2-5.2) g/dL Globulin (2-4) g/dL Albumin/Globulin Ratio (1-3) Result Diagrams: 02/07/17 14:25 02/07/17 14:25 Lab Statement: Any lab studies that have been ordered have been reviewed, and results considered in the medical decision making process. - Radiology Left foot XR Xray Interpretation: No Acute Changes - IMPRESSION: NO ACUTE OSSEOUS INJURY. NO APPRECIABLE EROSION OR PERIOSTEAL REACTION. PLAIN FILM FINDINGS OF OSTEOMYELITIS ARE RELATIVELY LATE FINDINGS. IF THERE IS PERSISTENT CLINICAL CONCERN FOR OSTEOMYELITIS, RECOMMEND CORRELATION WITH FOLLOWUP IMAGING, THREE- PHASE BONE SCANNING, WHITE BLOOD CELL SCAN, AND/OR MRI OF THE AFFECTED REGION. ED physician has reviewed this radiology report and agrees. Radiology Interpretation Completed By: Radiologist - EKG 1427 Cardiac Rate: NL EKG Rhythm: Sinus Rhythm Lower Extremity Course/Dx - Course Assessment/Plan: 66 y/o male presenting to [facility] c/o left great toe pain x3 days s/p pt failed outpatient antibiotic prescribed, Cephalexin. Labs and XR were obtained. Labs reveal WBC of 11.1, glucose of 110, CRP 106.27. XR shows no fracture and no evidence of osteomyelitis. I discussed the pt's case with Dr. Ro, who will admit the pt. - Diagnoses Differential Diagnosis/HQI/PQRI: Positive: Cellulitis, Fracture (Closed), Osteomyelitis, Other - abscess, Provider Diagnoses: Cellulitis of left lower extremity - Physician Notifications Discussed Care Of Patient With: Herve Ro Time Discussed With Above Provider: 15:50 Instructed by Provider To: Other - I discussed the pt's case with Dr. Ro. He has agreed to admit the pt. Discharge - Discharge Plan Condition: Stable Disposition: ADMITTED TO [facility] The documentation as recorded by the Garry del rosario Angela accurately reflects the service I personally performed and the decisions made by me, Benja Virgen MD.
[2017-02-07] MEDS ORDERED: Vancomycin(*) 1,500 MG in NS 0.9% 250 ML* 250 ML IVPB ONE (17:30)
[2017-02-07] MEDS ORDERED: Vancomycin per Pharmacy* NOTE FOLLOW UP PRN (18:47)
[2017-02-07] MEDS ORDERED: ZOSYN 3.375 GM x ONE DOSE over 30 miuntes IVPB ×2 (19:30)
--- NOTE | 2017-02-07 21:19 | HP ---
HISTORY AND PHYSICAL: DATE OF ADMISSION: 02/07/17 PRIMARY CARE PHYSICIAN: Dr. Lundberg. CHIEF COMPLAINT: Sent from PCP's office for left foot infection. HISTORY OF PRESENT ILLNESS: This is a 66-year-old man with history of diabetes for the past 17 years presenting from his PCP's office, where he was noted to have a worsening left foot infection. He first noticed erythema on the dorsal surface of his left foot on Sunday, 4 days ago, after he was working on his house. He believes he dropped something heavy on his left foot and when he took his boots off that evening, he noticed some erythema and swelling, but no open wounds. He went to his primary care physician's office on Sunday, who prescribed him Keflex. He has been taking this and followed up with her today, but it was noted that the erythema was worst, so he was sent to the emergency department. He does complain of pain in the left foot that extends proximally to his calf. He denies fevers, but does note some chills. He also notes a small ulcer on his left first toe that has been there for about a month that has no drainage or odor. PAST MEDICAL HISTORY: Paroxysmal atrial fibrillation, on anticoagulation; type 2 diabetes for 17 years. HOME MEDICATIONS: 1. Keflex 500 mg t.i.d. 2. Metoprolol XL 75 mg daily. 3. Xarelto 20 mg daily. 4. Januvia 100 mg daily. 5. Metformin 1000 mg in the morning and 500 mg in the evening. ALLERGIES: No known drug allergies. SOCIAL HISTORY: He has never been a smoker. He has never been a drinker. He uses no illicit drugs. If he were unable to make decisions, he would appoint his brother, Rocky, at [phone]. REVIEW OF SYSTEMS: General: Positive for a 35-pound weight loss in the past year. Positive for chills. Negative for fevers. HEENT: Negative for sore throat, headache. Chest: Denies chest pain, shortness of breath, palpitations , cough. Abdomen: Positive for diarrhea for the past month and decreased appetite. Negative for abdominal pain. Extremities: Positive for redness and swelling. Negative for weakness, numbness, or tingling. PHYSICAL EXAMINATION GENERAL: Alert, unkempt man, in no distress. VITAL SIGNS: Temperature 99.2 degrees, heart rate 81, respirations 16, pulse ox 98% on room air, blood pressure 120/72. HEENT: Poor dentition. Pupils equal, round, and reactive to light. Extraocular muscles are intact. NECK: No lymphadenopathy. No JVP. Thyroid nonpalpable. LUNGS: Clear bilaterally. HEART: Regular rate and rhythm. No murmurs. PMI nondisplaced. ABDOMEN: Soft, nontender, nondistended. EXTREMITIES: Nonpurulent erythema on dorsum of left foot from the 3rd digit extending to the 5th digit and extending proximally to the lateral malleolus. The foot and leg are warm and tender. The only open area of skin is on the plantar surface of the left 1st digit where there is a 1-cm nondraining, nonerythematous ulcer. Pulses on the left foot are 1+. Pulses on the right foot are 2+. There is no calf tenderness. DIAGNOSTIC STUDIES/LAB DATA: On admission, white blood cell 11.1, hemoglobin 13.1, platelets 219. Sodium 137, potassium 4.1, chloride 107, bicarb 26, BUN 7 , creatinine 0.72. INR 1.9. Lactate 1.1. CRP 106. A foot x-ray on admission showed no acute osseous injury. No appreciable erosion or periosteal reaction. An EKG on admission was normal sinus rhythm, normal axis, normal intervals, and no ST or T-wave changes. ED COURSE: He received cefepime, vancomycin, and metronidazole. ASSESSMENT AND PLAN: This is a 66-year-old man with longstanding history of diabetes presenting with erythema on his left dorsal foot. 1. Nonpurulent diabetic foot infection that has failed outpatient antibiotics. Mr. Escalante will be admitted for IV antibiotics. Given his longstanding history of diabetes, I am interested in covering both gram-negative and gram-positive organisms. I will treat him with vancomycin and pip/tazo. I will consult Podiatry. He is vascularly intact; however, he should have JONNIE. I will defer the need for further imaging to Podiatry. However, on initial evaluation with foot x- ray, there is no periosteal involvement. There is no evidence of systemic infection. 2. Paroxysmal atrial fibrillation. Continue metoprolol 75 mg daily. Continue Xarelto. 3. Diabetes. I discussed our preference to discontinue his oral diabetic medications and treat him with insulin while he is admitted with this infection ; however, he refuses insulin. 4. DVT prophylaxis. He is on therapeutic anticoagulation for atrial fibrillation. [id number]/[facility] #: [id number] NOHELIA
[2017-02-07 22:07] LABS: Urine Bacteria Absent (Absent); Urine Bilirubin Negative (Negative); Urine Glucose Negative (Negative); Urine Nitrite Negative (Negative)
[2017-02-07] MEDS: ZOSYN 3.375 GM Q8H per EXTENDED INFUSION IVPB SCH ×2 (23:10)
[2017-02-08] MEDS ORDERED: Vancomycin(*) 1,500 MG in NS 0.9% 250 ML* 250 ML IVPB ONE (01:15)
[2017-02-08 06:28] LABS: Hematocrit 35 % (42-52); Hemoglobin 11.7 g/dl (14.0-18.0); Mean Corpuscular HGB Conc 34 g/dl (31-36); Mean Corpuscular Hemoglobin 32 pg (27-31); Mean Corpuscular Volume 93 fL (80-94); Mean Platelet Volume 8 um3 (7.4-10.4); Red Blood Count 3.71 10^6/ul (4.0-5.4); Red Cell Distribution Width 13 % (10.5-15); White Blood Count 8.2 10^3/ul (3.5-10.8)
[2017-02-08 06:38] LABS: BUN/Creatinine Ratio 15.5 (8-20); Calcium 8.8 mg/dL (8.6-10.3); EGFR African American 141.9 (>60); EGFR Non-African American 110.3 (>60); Potassium 3.8 mmol/L (3.5-5.0)
[2017-02-08] MEDS: ZOSYN 3.375 GM Q8H per EXTENDED INFUSION IVPB SCH ×4 (07:45→15:23)
[2017-02-08] MEDS: Metoprolol Succinate XL TAB* 50 MG PO SCH (09:11)
[2017-02-08] MEDS: Rivaroxaban TAB(*) 20 MG TAB PO SCH (09:11)
[2017-02-08] MEDS: Vancomycin(*) 1,250 MG in NS 0.9% 250 ML* 250 ML IVPB SCH ×2 (09:21→18:10)
--- NOTE | 2017-02-08 16:57 | PN ---
Subjective Date of Service: 02/08/17 Interval History: Patient seen and examined at bedside. Pt reports some chills. He states that 3- 4 days ago he developed redness and pain in his left foot that extended up to his calf. He was seen by his PCP who started him on PO ABX, when it didn't get better his PCP sent him to the ER. Denies fever, shortness of breath, chest discomfort, N/V. Pt states that he has had loose bowel movement since he was hospitalized the end of November. Pt states that there is a lot of broken glass on the floor at his home and he wonders if he may have stepped on some glass. He denies any known injury to the foot. Pt states that he doesn't check his glucose at home and he is refusing insulin here and would like to take his home oral medications. Family History: Unchanged from Admission Social History: Unchanged from Admission Past Medical History: Unchanged from Admission Objective Active Medications: Acetaminophen (Tylenol Tab*) 650 mg PO Q4H PRN Reason: FEVER/PAIN Al Hydrox/Mg Hydrox/Simethicone (Maalox Plus*) 30 ml PO Q6H PRN Reason: INDIGESTION Piperacillin Sod/Tazobactam (Sod 3.375 gm/ Sodium Chloride) 100 mls @ 25 mls/ hr IVPB Q8H [facility] Vancomycin HCl 1,250 mg/ (Sodium Chloride) 250 mls @ 166.667 mls/hr IVPB Q8H [facility] Metoprolol Succinate (Toprol Xl Tab*) 75 mg PO DAILY [facility] Pharmacy Consult (Zosyn Per Pharmacy*) 1 note FOLLOW UP .ZOSYN PER PHARMACY [facility] Pharmacy Consult (Vancomycin Per Pharmacy*) 1 note FOLLOW UP . PRN Reason: PER PROTOCOL Pharmacy Profile Note (Vancomycin Trough Check) 1 note FOLLOW UP ONCE ONE Stop : 02/09/17 09:16 Rivaroxaban (Xarelto (*)) 20 mg PO DAILY [facility] Vital Signs 02/07/17 02/07/17 02/07/17 18:33 20:43 23:18 Temperature 98.1 F 97.7 F 98.8 F Pulse Rate 78 82 103 Respiratory 18 15 20 Rate Blood Pressure 146/84 133/72 122/51 (mmHg) O2 Sat by Pulse 100 98 95 Oximetry 02/08/17 02/08/17 02/08/17 03:25 07:18 08:00 Temperature 98.6 F 98.3 F Pulse Rate 92 84 Respiratory 20 16 16 Rate Blood Pressure 118/64 112/64 (mmHg) O2 Sat by Pulse 100 97 97 Oximetry 02/08/17 02/08/17 02/08/17 11:49 13:48 15:17 Temperature 97.8 F 98.3 F 98.2 F Pulse Rate 77 71 72 Respiratory 16 16 Rate Blood Pressure 125/68 127/75 129/72 (mmHg) O2 Sat by Pulse 99 97 98 Oximetry Oxygen Devices in Use Now: None Appearance: NAD, laying in bed Ears/Nose/Mouth/Throat: Mucous Membranes Moist Respiratory: Symmetrical Chest Expansion and Respiratory Effort, Clear to Auscultation Cardiovascular: NL Sounds; No Murmurs; No JVD, RRR Abdominal: NL Sounds; No Tenderness; No Distention Extremities: - - Edema to left foot and lateral ankle Skin: - - Erythema to left foot from 3rd to 5th toes spreading towards the medial malleous, and a blister noted between 4th and 5th toes. Neurological: Alert and Oriented x 3, NL Muscle Strength and Tone Lines/Tubes/Other Access: Clean, Dry and Intact Peripheral IV - site benign Nutrition: Taking PO's Result Diagrams: 02/08/17 05:59 02/08/17 05:59 Additional Lab and Data: Microbiology and Other Data: Microbiology 02/07/17 21:50 Urine Culture - Final Urine No Growth (<1,000 CFU/mL) Assess/Plan/Problems-Billing Assessment: Mr. Escalante is a 67 yo male with PMH significant for P afib and DM who presented to the emergency room from his PCPs office with complaints of erythema and swelling to his left dorsal foot. - Patient Problems (1) Diabetic foot ulcer Code(s): E11.621 - TYPE 2 DIABETES MELLITUS WITH FOOT ULCER; L97.509 - NON- PRESSURE CHRONIC ULCER OTH PRT UNSP FOOT W UNSP SEVERITY SNOMED Code(s): 369357522 Comment: - Left foot (erythema medial aspect near big toe and 4th and 5th toes) - No improvement with outpatient cephalexin - Elevated CRP, leukocytosis resolved - Will get MRI left foot to eval for possible osteomyelitis - Continue Vanco and Zosyn (2) Atrial fibrillation Code(s): I48.91 - UNSPECIFIED ATRIAL FIBRILLATION SNOMED Code(s): 66622068 Comment: - PAF - [id number] score of 2 - Continue metoprolol succinate and xarelto (3) Diabetes Code(s): E11.9 - TYPE 2 DIABETES MELLITUS WITHOUT COMPLICATIONS SNOMED Code(s) : 38505197 Comment: - Glucose 110-170s - Continue BID metformin and sitagliptin (4) DVT prophylaxis Code(s): RVZ8171 - SNOMED Code(s): 361390334 Comment: - Xarelto (5) DNR (do not resuscitate) Status and Disposition: Inpatient. Discharge to home when medically stable.
[2017-02-09] MEDS: ZOSYN 3.375 GM Q8H per EXTENDED INFUSION IVPB SCH ×4 (00:22→07:41)
[2017-02-09] MEDS: Vancomycin(*) 1,250 MG in NS 0.9% 250 ML* 250 ML IVPB SCH (01:34)
[2017-02-09] MEDS: CMCS:SitaGLIPtin (NF) 100 MG TAB PO SCH (07:41)
[2017-02-09] MEDS: Rivaroxaban TAB(*) 20 MG TAB PO SCH (07:41)
[2017-02-09] MEDS: metFORMIN* 850 MG TAB PO SCH ×2 (07:41→16:52)
[2017-02-09] MEDS: Metoprolol Succinate XL TAB* 50 MG PO SCH (07:41)
[2017-02-09] MEDS ORDERED: Vancomycin Trough Check NOTE FOLLOW UP ONE (09:15)
[2017-02-09 09:33] LABS: Hematocrit 38 % (42-52); Hemoglobin 12.7 g/dl (14.0-18.0); Mean Corpuscular HGB Conc 34 g/dl (31-36); Mean Corpuscular Hemoglobin 31 pg (27-31); Mean Corpuscular Volume 93 fL (80-94); Mean Platelet Volume 8 um3 (7.4-10.4); Red Blood Count 4.08 10^6/ul (4.0-5.4); Red Cell Distribution Width 13 % (10.5-15); White Blood Count 9.6 10^3/ul (3.5-10.8)
[2017-02-09 09:41] LABS: Add Diff/Slide Review? Slide Review Added; Comments Flag Yes
[2017-02-09 09:54] LABS: EGFR African American 139.6 (>60); EGFR Non-African American 108.6 (>60)
[2017-02-09] MEDS: Clindamycin 600 MG IVPREMIX(* 600 MG/50 ML SDV IV SCH ×2 (10:45→16:53)
--- NOTE | 2017-02-09 14:49 | CONS ---
CONSULTATION REPORT: DATE OF CONSULT: 02/09/17 REQUESTING PROVIDER: Sally Lund NP CONSULTING SERVICE: Infectious Disease. REASON FOR CONSULTATION: Left foot infection. IMPRESSION: 1. Left lateral forefoot cellulitis, question underlying abscess. There is bulla formation consistent with a streptococcal infection. 2. Diabetes with neuropathy. He has the MRI pending, which will rule out a foreign body and abscess present. 3. Recent admission for a left great toe infection, which has resolved and the wound that is nearly healed. He had an JONNIE December 21, which showed arteriosclerosis, normal distal waveforms and his pulses exam today. RECOMMENDATIONS: Change back vanc and Zosyn to clindamycin. The MRI report is pending to look for foreign body, abscess, osteomyelitis so I think bone infection is less likely. HISTORY OF PRESENT ILLNESS: This is a 67-year-old man with diabetes admitted with left foot infection. He was here about 6 weeks ago with right great toe infection, treated with IV antibiotics, and transitioned to oral antibiotics, infections resolved. There is a callus and small ulcer, which is nearly resolved. Since last week and he has had some redness and swelling in his left lateral forefoot, saw Dr. Lundberg on Sunday, was started on Keflex, developed a bulla and the redness and swelling persisted, pain with weightbearing so she recommended he come to the hospital. He came in on the , started vancomycin and Zosyn. A foot x-ray at that time showed no foreign body. Since he has been here, the swelling and redness have improved. No longer swollen calf and ankle, just in the foot now. He is being alright. He has had loose stools for the past few weeks but are kind a soft one or two a day. PAST MEDICAL HISTORY: 1. Diabetes with neuropathy. 2. Atrial fibrillation, on anticoagulation. MEDICATIONS: 1. Tylenol. 2. Metoprolol. 3. Zosyn 3.375 g every 8 hours. 4. Rivaroxaban. 5. Sitagliptin. 6. Vancomycin 1250 mg every 8 hours. 7. Metformin. ALLERGIES: No known drug allergies. FAMILY HISTORY: No recurrent infections. SOCIAL HISTORY: He lives [facility] in an abandoned building. There is electricity, no running water, there is no windows, there is full of broken glass that he also is walking barefoot on. He does not know if he has a puncture from a foreign body. REVIEW OF SYSTEMS: All negative to a full review of systems, except as noted above. PHYSICAL EXAM: Vital Signs: Temperature is 37, heart rate 80, respiratory rate 14, blood pressure 130/70, O2 sat 99% on room air. In general, he is awake and not in distress. Neurologic: He is oriented x3. Follows all commands. Moves all of his extremities. Sensation is absent in the feet bilaterally. HEENT: There is conjunctival hemorrhage, oropharynx without lesions. Neck is supple without nuchal rigidity. Lymph Nodes: There is no inguinal, axillary, or epitrochlear lymphadenopathy. Heart is regular rate and rhythm without murmurs, rubs, or gallops. Lungs are clear to auscultation bilaterally. Abdomen is soft, nontender, and nondistended. There is bowel sounds present. Skin: There is no rashes or splinter hemorrhages. Musculoskeletal: No spine tenderness to palpation. No joint synovitis. The left foot fourth and fifth toes are edematous with erythema. There is a bulla between the fourth and fifth toes with some clear fluid. There is mild erythema , which is nonblanching, extending up into the proximal forefoot. There is no crepitus or fluctuance. There is diffuse edema through the midfoot. DIAGNOSTIC STUDIES/LAB DATA: White blood cell count 8.2, yesterday down from 11 ; hemoglobin 11, platelets 197. Creatinine 0.7. CRP was 100 on admission. Please see impressions and recommendations as outlined above, which I have discussed with Dr. Sally Lund. Thank you for asking me to see Mr. Escalante in consultation. [id number]/[facility] #: [id number] [facility] MEDICAL CENTERPatricia
--- NOTE | 2017-02-09 15:55 | RAD ---
Indication: Osteomyelitis left foot. Image sequences: Coronal T1, STIR, sagittal T1, STIR, axial T1, STIR images of the foot were obtained. The visualized metatarsal and phalanges demonstrates increased signal in the great toe. Underlying osteomyelitis should BE considered. Diffuse soft tissue swelling is noted. The distal interphalangeal joints of the other toes are intact. IMPRESSION: Increased bone marrow edema in the left great toe suggestive of osteomyelitis. Soft tissue swelling is otherwise noted.
--- NOTE | 2017-02-09 17:19 | PN ---
Subjective Date of Service: 02/09/17 Interval History: Patient seen and examined at bedside. Denies fever, shortness of breath, chest discomfort, N/V/D. Wilson reports intermittent chills and increased redness and swelling in his LEs when his legs are down. Family History: Unchanged from Admission Social History: Unchanged from Admission Past Medical History: Unchanged from Admission Objective Active Medications: Acetaminophen (Tylenol Tab*) 650 mg PO Q4H PRN Reason: FEVER/PAIN Al Hydrox/Mg Hydrox/Simethicone (Maalox Plus*) 30 ml PO Q6H PRN Reason: INDIGESTION Clindamycin HCl/Dextrose (Cleocin 600 Mg Ivpremix(*) Sdv) 600 mg in 50 mls @ 100 mls/hr IV Q8H [facility] Metformin HCl (Glucophage*) 850 mg PO BID WITH MEALS [facility] Metoprolol Succinate (Toprol Xl Tab*) 75 mg PO DAILY [facility] Rivaroxaban (Xarelto (*)) 20 mg PO DAILY [facility] Sitagliptin Phosphate (Januvia (Nf)) 100 mg PO DAILY [facility] Vital Signs 02/08/17 02/08/17 02/08/17 19:37 22:49 23:28 Temperature 97.9 F 98.4 F Pulse Rate 82 71 Respiratory 16 16 20 Rate Blood Pressure 116/63 134/74 (mmHg) O2 Sat by Pulse 98 98 98 Oximetry 02/09/17 02/09/17 02/09/17 03:45 07:40 08:00 Temperature 98.2 F 97.9 F Pulse Rate 76 80 Respiratory 20 14 18 Rate Blood Pressure 138/81 131/72 (mmHg) O2 Sat by Pulse 95 99 99 Oximetry 02/09/17 02/09/17 11:43 15:23 Temperature 97.9 F 98.1 F Pulse Rate 82 78 Respiratory 17 16 Rate Blood Pressure 136/64 125/72 (mmHg) O2 Sat by Pulse 99 96 Oximetry Oxygen Devices in Use Now: None Appearance: NAD, laying in bed Ears/Nose/Mouth/Throat: Mucous Membranes Moist Respiratory: Symmetrical Chest Expansion and Respiratory Effort, Clear to Auscultation Cardiovascular: NL Sounds; No Murmurs; No JVD, RRR Abdominal: NL Sounds; No Tenderness; No Distention Extremities: - - Edema to left ankle and foot Skin: - - Bulla noted b/t 4th & 5th toes, edema to 4th & 5th toes and foot, erythema to 4th & 5th toes extending to proximal foot Neurological: Alert and Oriented x 3, NL Muscle Strength and Tone Lines/Tubes/Other Access: Clean, Dry and Intact Peripheral IV - site benign Nutrition: Taking PO's Result Diagrams: 02/09/17 09:14 02/09/17 09:14 Additional Lab and Data: Microbiology and Other Data: Microbiology 02/07/17 21:50 Urine Culture - Final Urine No Growth (<1,000 CFU/mL) Assess/Plan/Problems-Billing Assessment: Mr. Escalante is a 67 yo male with PMH significant for P afib and DM who presented to the emergency room from his PCPs office with complaints of erythema and swelling to his left dorsal foot. - Patient Problems (1) Diabetic foot ulcer Code(s): E11.621 - TYPE 2 DIABETES MELLITUS WITH FOOT ULCER; L97.509 - NON- PRESSURE CHRONIC ULCER OTH PRT UNSP FOOT W UNSP SEVERITY SNOMED Code(s): 401289950 Comment: - Left foot (erythema medial aspect near big toe and 4th and 5th toes) - No improvement with outpatient cephalexin - Elevated CRP, leukocytosis resolved - MRI left LE shows possible osteomyelitis at 1st digit and soft tissue swelling - ID consult, input appreciated - Continue Clindamycin (2) Atrial fibrillation Code(s): I48.91 - UNSPECIFIED ATRIAL FIBRILLATION SNOMED Code(s): 79921307 Comment: - PAF - [id number] score of 2 - Continue metoprolol succinate and xarelto (3) Diabetes Code(s): E11.9 - TYPE 2 DIABETES MELLITUS WITHOUT COMPLICATIONS SNOMED Code(s) : 30666419 Comment: - Glucose 130-170s - Continue BID metformin and sitagliptin (4) DVT prophylaxis Code(s): FYL2749 - SNOMED Code(s): 816668822 Comment: - Xarelto (5) DNR (do not resuscitate) Status and Disposition: Inpatient. Discharge to home when medically stable.
[2017-02-10] MEDS: Clindamycin 600 MG IVPREMIX(* 600 MG/50 ML SDV IV SCH ×3 (02:24→17:36)
[2017-02-10] MEDS: CMCS:SitaGLIPtin (NF) 100 MG TAB PO SCH (09:09)
[2017-02-10] MEDS: Rivaroxaban TAB(*) 20 MG TAB PO SCH (09:09)
[2017-02-10] MEDS: Metoprolol Succinate XL TAB* 50 MG PO SCH (09:09)
[2017-02-10] MEDS: metFORMIN* 850 MG TAB PO SCH ×2 (09:09→17:36)
--- NOTE | 2017-02-10 11:01 | PN ---
Subjective Date of Service: 02/10/17 Interval History: Mr. Escalante feels that his left foot does look somewhat better today though it continues to be red and swollen along the outer side of the foot near the pinky toe with a large blister. He denies other complaint including chest pain, SOB, nausea, or abdominal pain. Family History: Unchanged from Admission Social History: Unchanged from Admission Past Medical History: Unchanged from Admission Objective Active Medications: Acetaminophen (Tylenol Tab*) 650 mg PO Q4H PRN Al Hydrox/Mg Hydrox/Simethicone (Maalox Plus*) 30 ml PO Q6H PRN Clindamycin HCl/Dextrose (Cleocin 600 Mg Ivpremix(*) Sdv) 600 mg in 50 mls @ 100 mls/hr IV Q8H [facility] Metformin HCl (Glucophage*) 850 mg PO BID WITH MEALS [facility] Metoprolol Succinate (Toprol Xl Tab*) 75 mg PO DAILY [facility] Rivaroxaban (Xarelto (*)) 20 mg PO DAILY [facility] Sitagliptin Phosphate (Januvia (Nf)) 100 mg PO DAILY [facility] Vital Signs 02/09/17 02/09/17 02/09/17 11:43 15:23 19:30 Temperature 97.9 F 98.1 F 98.4 F Pulse Rate 82 78 85 Respiratory 17 16 20 Rate Blood Pressure 136/64 125/72 122/65 (mmHg) O2 Sat by Pulse 99 96 98 Oximetry 02/09/17 02/09/17 02/10/17 23:52 23:56 04:51 Temperature 98.7 F 98.6 F Pulse Rate 84 82 Respiratory 16 16 16 Rate Blood Pressure 121/65 139/112 (mmHg) O2 Sat by Pulse 97 97 Oximetry 02/10/17 02/10/17 02/10/17 05:26 06:38 08:00 Temperature 97.9 F Pulse Rate 109 Respiratory 16 16 Rate Blood Pressure 118/72 122/66 (mmHg) O2 Sat by Pulse 97 97 Oximetry Oxygen Devices in Use Now: None Appearance: Male sitting up in bed in NAD Eyes: No Scleral Icterus Ears/Nose/Mouth/Throat: Mucous Membranes Moist Neck: Trachea Midline Respiratory: Symmetrical Chest Expansion and Respiratory Effort, Clear to Auscultation Cardiovascular: NL Sounds; No Murmurs; No JVD Abdominal: NL Sounds; No Tenderness; No Distention Lymphatic: No Cervical Adenopathy Skin: - Neurological: Alert and Oriented x 3, NL Muscle Strength and Tone Result Diagrams: 02/09/17 09:14 02/09/17 09:14 Additional Lab and Data: Microbiology and Other Data: Microbiology 02/07/17 21:50 Urine Culture - Final Urine No Growth (<1,000 CFU/mL) Assess/Plan/Problems-Billing Assessment: Mr. Escalante is a 67 yo male with PMH significant for P afib and DM who presented to the emergency room from his PCPs office with complaints of erythema and swelling to his left dorsal foot. - Patient Problems (1) Diabetic foot ulcer Comment: - Continues to improve slowly. CRP down, leukocytosis resolved. - Left foot (erythema medial aspect near big toe and 4th and 5th toes). - No improvement with outpatient cephalexin. - MRI left LE shows possible osteomyelitis at 1st digit and soft tissue swelling. - ID consult, input appreciated. Continue Clindamycin (2) Diabetes Comment: - Glucose 130-170s - Continue BID metformin and sitagliptin (3) Atrial fibrillation Comment: - PAF - [id number] score of 2 - Continue metoprolol succinate and xarelto (4) DNR (do not resuscitate) (5) DVT prophylaxis Comment: - Xarelto Status and Disposition: Inpatient. Anticipate discharge to home when medically stable.
[2017-02-11] MEDS: Clindamycin 600 MG IVPREMIX(* 600 MG/50 ML SDV IV SCH ×3 (02:24→17:14)
[2017-02-11 05:56] LABS: Hematocrit 38 % (42-52); Hemoglobin 12.7 g/dl (14.0-18.0); Mean Corpuscular HGB Conc 34 g/dl (31-36); Mean Corpuscular Hemoglobin 31 pg (27-31); Mean Corpuscular Volume 93 fL (80-94); Mean Platelet Volume 8 um3 (7.4-10.4); Red Blood Count 4.05 10^6/ul (4.0-5.4); Red Cell Distribution Width 12 % (10.5-15); White Blood Count 7.7 10^3/ul (3.5-10.8)
--- NOTE | 2017-02-11 07:42 | PN ---
Subjective Date of Service: 02/11/17 Interval History: Mr. Escalante states that he is feeling well today and has no acute complaints. He feels that the redness and swelling to his left foot continues to improve. He denies chest pain, SOB, nausea, or abdominal pain. Family History: Unchanged from Admission Social History: Unchanged from Admission Past Medical History: Unchanged from Admission Objective Active Medications: Acetaminophen (Tylenol Tab*) 650 mg PO Q4H PRN Al Hydrox/Mg Hydrox/Simethicone (Maalox Plus*) 30 ml PO Q6H PRN Clindamycin HCl/Dextrose (Cleocin 600 Mg Ivpremix(*) Sdv) 600 mg in 50 mls @ 100 mls/hr IV Q8H [facility] Metformin HCl (Glucophage*) 1,700 mg PO 0800 [facility] Metformin HCl (Glucophage*) 850 mg PO 1700 [facility] Metoprolol Succinate (Toprol Xl Tab*) 75 mg PO DAILY [facility] Rivaroxaban (Xarelto (*)) 20 mg PO DAILY [facility] Sitagliptin Phosphate (Januvia (Nf)) 100 mg PO DAILY [facility] Vital Signs: Temp Pulse Resp BP Pulse Ox 98.4 F 72 16 130/75 97 02/11/17 07:23 02/11/17 07:23 02/11/17 07:35 02/11/17 07:23 02/11/17 07:34 Oxygen Devices in Use Now: None Appearance: Male sitting up in bed in NAD Eyes: No Scleral Icterus Ears/Nose/Mouth/Throat: Mucous Membranes Moist Neck: Trachea Midline Respiratory: Symmetrical Chest Expansion and Respiratory Effort, Clear to Auscultation Cardiovascular: NL Sounds; No Murmurs; No JVD Abdominal: NL Sounds; No Tenderness; No Distention Lymphatic: No Cervical Adenopathy Skin: - - Minimal improvement in swelling and redness to left dorsal foot, bullae size decreased Neurological: Alert and Oriented x 3, NL Muscle Strength and Tone Nutrition: Taking PO's Result Diagrams: 02/11/17 05:05 02/09/17 09:14 Additional Lab and Data: Microbiology and Other Data: Microbiology 02/07/17 21:50 Urine Culture - Final Urine No Growth (<1,000 CFU/mL) Assess/Plan/Problems-Billing Assessment: Mr. Escalante is a 67 yo male with PMH significant for P afib and DM who presented to the emergency room from his PCPs office with complaints of erythema and swelling to his left dorsal foot. - Patient Problems (1) Diabetic foot ulcer Comment: - Continues to improve slowly. CRP continues to fall, leukocytosis resolved. - Left foot (erythema medial aspect near big toe and 4th and 5th toes). - No improvement with outpatient cephalexin. - MRI left LE shows possible osteomyelitis at 1st digit and soft tissue swelling. - ID consult, input appreciated. Continue Clindamycin. - Patient hoping to have diabetic shoes delivered here prior to discharge. (2) Diabetes Comment: - Have discontinued BGs as they have been well controlled throughout this hospitalization. - Continue BID metformin and sitagliptin. (3) Atrial fibrillation Comment: - PAF. - [id number] score of 2. - Continue metoprolol succinate and xarelto. (4) DNR (do not resuscitate) (5) DVT prophylaxis Comment: - Xarelto Status and Disposition: Inpatient. Anticipate discharge to home when medically stable.
[2017-02-11] MEDS: Metoprolol Succinate XL TAB* 50 MG PO SCH (07:44)
[2017-02-11] MEDS: CMCS:SitaGLIPtin (NF) 100 MG TAB PO SCH (07:44)
[2017-02-11] MEDS: metFORMIN* 850 MG TAB PO SCH ×2 (07:44→17:14)
[2017-02-11] MEDS: Rivaroxaban TAB(*) 20 MG TAB PO SCH (07:45)
[2017-02-12] MEDS: Clindamycin 600 MG IVPREMIX(* 600 MG/50 ML SDV IV SCH ×2 (01:28→10:17)
[2017-02-12 06:27] VITALS: BP 123/69
[2017-02-12] MEDS: Rivaroxaban TAB(*) 20 MG TAB PO SCH (08:57)
[2017-02-12] MEDS: metFORMIN* 850 MG TAB PO SCH (08:57)
[2017-02-12] MEDS: Metoprolol Succinate XL TAB* 50 MG PO SCH (08:58)
[2017-02-12] MEDS: CMCS:SitaGLIPtin (NF) 100 MG TAB PO SCH (08:58)
--- NOTE | 2017-02-12 10:17 | PN ---
Progress Note - Progress Note Date of Service: 02/12/17 SOAP: Subjective: CC: 02/12/17 HPI: 67 year old man with diabetes and left forefoot infection. Pain, swelling , redness much improved. Blister popped. No fever, rash, or diarrhea. Objective: [] Vital Signs Temp 36.7 C 02/12/17 06:12 Pulse 68 02/12/17 06:12 Resp 16 02/12/17 08:00 BP 123/69 02/12/17 06:12 Pulse Ox 98 02/12/17 08:00 Intake & Output 02/11/17 02/12/17 02/12/17 18:59 06:59 18:59 Intake Total 1360 320 Balance 1360 320 Intake: IV Fluids 30 30 NS (0.9%) 30 30 IVPB 50 50 Clindamycin 50 50 Oral 1280 240 Other: Estimated Void Large # Bowel Movements 0 # Voids 1 Gen:awake, no distress HEENT:PERRL, MMM Neck:Supple Heart:RRR no murmur Lungs:CTA BL Abd:+BS NTND soft Skin: no rash MSK: L lateral forefoot edema no erythema, tenderness, or crepitus; L great toe medial callus. 1+ L DP pulse Assessment: 1. L foot cellulitis, likely strep, improving 2. diabetes with neuropathy Plan: 1. can change to clidnamycin 300 mg PO three times daily for 14 more days. Podiatry follow up. 35 minutes floor time >50% counseling regarding foot care in setting of diabetes and his living situation. All questions answered.
--- NOTE | 2017-02-12 12:12 | PN ---
Subjective Date of Service: 02/12/17 Interval History: Mr. Escalante continues to feel that his left foot is improving slowly. He denies any further complaint. Family History: Unchanged from Admission Social History: Unchanged from Admission Past Medical History: Unchanged from Admission Objective Active Medications: Acetaminophen (Tylenol Tab*) 650 mg PO Q4H PRN Al Hydrox/Mg Hydrox/Simethicone (Maalox Plus*) 30 ml PO Q6H PRN Clindamycin HCl/Dextrose (Cleocin 600 Mg Ivpremix(*) Sdv) 600 mg in 50 mls @ 100 mls/hr IV Q8H [facility] Metformin HCl (Glucophage*) 1,700 mg PO 0800 [facility] Metformin HCl (Glucophage*) 850 mg PO 1700 [facility] Metoprolol Succinate (Toprol Xl Tab*) 75 mg PO DAILY [facility] Rivaroxaban (Xarelto (*)) 20 mg PO DAILY [facility] Sitagliptin Phosphate (Januvia (Nf)) 100 mg PO DAILY [facility] Vital Signs: Temp Pulse Resp BP Pulse Ox 98.1 F 68 16 123/69 98 02/12/17 06:12 02/12/17 06:12 02/12/17 08:00 02/12/17 06:12 02/12/17 08:00 Oxygen Devices in Use Now: None Appearance: Male sitting up in bed in NAD Eyes: No Scleral Icterus Ears/Nose/Mouth/Throat: Mucous Membranes Moist Neck: Trachea Midline Respiratory: Symmetrical Chest Expansion and Respiratory Effort, Clear to Auscultation Cardiovascular: NL Sounds; No Murmurs; No JVD, No Edema Abdominal: NL Sounds; No Tenderness; No Distention Lymphatic: No Cervical Adenopathy Extremities: No Edema Skin: - - Much decreased erythema and edema to left foot, bulla has ruptured Neurological: Alert and Oriented x 3 Lines/Tubes/Other Access: Clean, Dry and Intact Chest Tube Nutrition: Taking PO's Result Diagrams: 02/11/17 05:05 02/09/17 09:14 Additional Lab and Data: Microbiology and Other Data: Microbiology 02/07/17 21:50 Urine Culture - Final Urine No Growth (<1,000 CFU/mL) Assess/Plan/Problems-Billing Assessment: Mr. Escalante is a 67 yo male with PMH significant for P afib and DM who presented to the emergency room from his PCPs office with complaints of erythema and swelling to his left dorsal foot. - Patient Problems (1) Diabetic foot ulcer Comment: - Continues to improve. CRP continues to fall, leukocytosis resolved. - Left foot (erythema medial aspect near big toe and 4th and 5th toes). - No improvement with outpatient cephalexin. - MRI left LE shows possible osteomyelitis at 1st digit and soft tissue swelling. - ID consult, input appreciated. Can switch to po clindamycin for 2 weeks with follow up with PCP and/or podiatry. - Patient hoping to have diabetic shoes delivered here prior to discharge. (2) Diabetes Comment: - Have discontinued BGs as they have been well controlled throughout this hospitalization. - Continue BID metformin and sitagliptin. (3) Atrial fibrillation Comment: - PAF. - [id number] score of 2. - Continue metoprolol succinate and xarelto. (4) DNR (do not resuscitate) (5) DVT prophylaxis Comment: - Xarelto Status and Disposition: Inpatient. Discharge to home.
--- NOTE | 2017-02-12 23:32 | DS ---
CC: Dr. Lundberg * [facility] MEDICINE DISCHARGE SUMMARY: DATE OF ADMISSION: 02/07/17 DATE OF DISCHARGE: 02/12/17 PRIMARY CARE PHYSICIAN: Dr. Lundberg. ATTENDING PHYSICIAN: Dr. Dex Ro * (dictation provided by Toya Grove NP). PRIMARY DIAGNOSIS: Left foot cellulitis with associated osteomyelitis. SECONDARY DIAGNOSES: 1. Paroxysmal atrial fibrillation. 2. Type 2 diabetes. MEDICATIONS AT THE TIME OF DISCHARGE: 1. Clindamycin 300 mg p.o. t.i.d. x3 weeks. 2. Metformin 1700 mg in the a.m. and 850 mg in the p.m. 3. Tylenol 650 mg p.o. as needed. 4. Sitagliptin 100 mg p.o. daily. 5. Rivaroxaban 20 mg p.o. daily. 6. Metoprolol succinate 75 mg p.o. daily. HOSPITAL COURSE: Mr. Escalante is a 67-year-old male with past medical history of type 2 diabetes and atrial fibrillation, on Xarelto, who presented to the hospital from his PCP's office on 02/07/17 with concern for left foot infection. Please see the dictated H and P from Lupe Davila DO, for complete details. In brief, the patient had noted swelling on the dorsum of his foot approximately 4 days prior. He believes perhaps that he may stepped on some glass. He had a slightly elevated WBC to11.1 on arrival. He was afebrile. He had a foot x-ray that showed no acute osseous injury. No appreciable erosion or periosteal reaction. The patient had significant redness and swelling and with concern for cellulitis and possible associated osteomyelitis and therefore he was admitted to the hospital. Mr. Escalante underwent a lower extremity MRI on 02/08/17, which showed the following: "Increased bone marrow edema in the left great toe suggestive of osteomyelitis, soft tissue swelling is otherwise noted." He was seen in consultation by Dr. Wilson from Infectious Diseases. He recommended that the patient go on clindamycin therapy for suspected streptococcal infection based on the presence of a large bulla and no evidence of abscess. Mr. Escalante continued on clindamycin over the weekend. With this, he has had great improvement in the swelling and erythema to his foot. The bulla is ruptured. He clearly still has evidence of infection especially toward the dorsum of the foot on the left fourth and fifth toes. The patient was seen again by Dr. Wilson today at followup and he recommends that the patient can be discharged to home on clindamycin orally for a 2-week course and that the patient should consider followup with Podiatry in addition to his primary care physician, Dr. Lundberg. Mr. Escalante is doing well today. He has had no fever, no chills. He is tolerating oral intake well. DISPOSITION: To home. DIET: Consistent carbohydrate. ACTIVITY: As tolerated. FOLLOWUP: Please follow up with the [facility] of your choosing in the next 1 to 2 weeks as well as Dr. Lundberg to ensure good resolution of your infection. TIME SPENT: Approximately 60 minutes was spent in the discharge of this patient , more than half the time was spent with the patient at the bedside reviewing the events leading up to this hospitalization, performing the physical examination, and reviewing the plan of care. TOYA GROVE NP [id number]/[facility] #: [id number] NOHELIA
== END 2017-02-12 14:10 | disposition home or self-care (01) | DRG 638 ==
LOC: ED 11:59 → MED 16:02
PROVIDERS: ADMIT Internal Medicine; ATTEND Internal Medicine
DX: E11.69 Type 2 diabetes mellitus with other specified complication (principal); B95.5 Unspecified streptococcus as the cause of diseases classified elsewhere; L03.116 Cellulitis of left lower limb; M86.9 Osteomyelitis, unspecified; E11.40 Type 2 diabetes mellitus with diabetic neuropathy, unspecified; E11.621 Type 2 diabetes mellitus with foot ulcer; I48.0 Paroxysmal atrial fibrillation; L97.529 Non-pressure chronic ulcer of other part of left foot with unspecified severity; Z66 Do not resuscitate; R23.8 Other skin changes; Z91.048 Other nonmedicinal substance allergy status; Z82.49 Family history of ischemic heart disease and other diseases of the circulatory system; Z83.3 Family history of diabetes mellitus; Z79.84 Long term (current) use of oral hypoglycemic drugs; Z79.01 Long term (current) use of anticoagulants
CPT/HCPCS: 36415; 80048; 80053; 81003; 81015; 82272; 82565; 83605; 83630; 83735; 84484; 84520; 85025; 85610; 85652; 85730; 86140; 87040; 87045; 87046; 87077; 87086; 87177; 87209; 87328; 87329; 87493; 87899; 93005; A9270-GY; J0692; J2543; J3370

== ENCOUNTER → 2017-11-20 17:29 | Emergency (ER) | payer MEDICARE, MEDICAID ==
[~2017-11-20 17:29] MED LIST: Digoxin IV* 0.5 MG/2 ML AMP (0.25 MG/ML) IV ONE; Diltiazem IV* 5 MG/ML 5 ML VIAL (for loading dose/IV Push) (25 MG) IV SLOW PU ONE; NS 0.9% 1000 ML* 1,000 ML IV ONE
--- NOTE | 2017-11-20 18:52 | RAD ---
Indication: Dizziness, irregular heart rate. Comparison: December 27, 2016 Technique: Upright AP 1834 hours Report: No focal pulmonary lesion, compelling alveolar consolidation, pleural effusion, pneumothorax. Upper normal heart size. Unremarkable central pulmonary vasculature. Mildly tortuous descending thoracic aorta without change. IMPRESSION: No acute cardiopulmonary process evident.
[2017-11-20 19:16] LABS: ABS Basophils 0.1 10^3/ul (0-0.2); ABS Eosinophils 0.1 10^3/ul (0-0.6); ABS Lymphocytes 1.9 10^3/ul (1.0-4.8); ABS Monocytes 0.5 10^3/ul (0-0.8); ABS Neutrophils 5.7 10^3/ul (1.5-7.7); ABS Nucleated RBC 0 10^3/ul; Eosinophil % 1.2 % (0-6); Hematocrit 42 % (42-52); Hemoglobin 14.4 g/dl (14.0-18.0); Lymphocyte % 22.9 % (25-47); Mean Corpuscular HGB Conc 35 g/dl (31-36); Mean Corpuscular Hemoglobin 32 pg (27-31); Mean Corpuscular Volume 92 fL (80-94); Mean Platelet Volume 7.7 um3 (7.4-10.4); Nucleated Red Blood Cells % 0; Platelet Count 220 10^3/ul (150-450); Red Blood Count 4.55 10^6/ul (4.00-5.40); Red Cell Distribution Width 13 % (10.5-15); White Blood Count 8.3 10^3/ul (3.5-10.8)
[2017-11-20 19:24] LABS: INR 1.43 (0.77-1.02)
[2017-11-20 19:28] LABS: EGFR Non-African American 52.1 (>60)
[2017-11-20 20:22] VITALS: BP 123/79
--- NOTE | 2017-11-20 20:34 | ED ---
Garry Lucas Angela scribjuan diego for Basil Del Rosario MD on 11/20/17 at 1807 . Palpitations / Dysrhythmia - HPI Summary HPI Summary: This pt is a 67 y/o male presenting to [facility] referred by his PCP c/o dizziness and palpitations today. 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 He also noted to have palpitations, characterized as fast. Pt sat down for 1 hour but his symptoms did not alleviate or resolve. Denies chest pain, SOB, nausea, vomiting. He went to his PCP's office at 16:30 and was found to have irregular heart rate. Pt notes he has felt more fatigue in the past week. PMHx includes atrial fibrillation. Last episode of afib was last year, but states he returned to sinus rhythm. Pt denies cardioversion in the past. Pt is currently on Xarelto (which he takes every night) and Metoprolol. He denies missing any doses. He last saw his event marketing assistant in 2016. Pt is unable to recall his event marketing assistant's name. - History of Current Complaint Chief Complaint: EDDysrhythmPalp Time Seen by Provider: 11/20/17 17:55 Hx Obtained From: Patient Onset/Duration: Sudden Onset, Still Present Timing: Constant Severity Currently: Moderate Character: Fast Aggravating: Nothing Alleviating: Nothing Associated Signs & Symptoms: Dizzy - Allergy/Home Medications Allergies/Adverse Reactions: Allergies Allergy/AdvReac Type Severity Reaction Status Date / Time No Known Drug Allergies Allergy See Comment Verified 11/20/17 17:54 Grass and hay Allergy Rash Uncoded 12/21/16 09:30 Home Medications: Home Medications Metoprolol Succinate XL TAB* [Toprol XL TAB*] 50 mg PO DAILY 11/20/17 [History Confirmed 11/20/17] Rivaroxaban TAB(*) [Xarelto 20 mg] 20 mg PO DAILY 11/20/17 [History Confirmed ] SitaGLIPtin (NF) [Januvia (NF)] 100 mg PO DAILY 11/20/17 [History Confirmed ] metFORMIN* [Glucophage 850 MG TAB *] 850 mg PO TID 11/20/17 [History Confirmed 11/20/17] PMH/Surg Hx/FS Hx/Imm Hx Endocrine/Hematology History: Reports: Hx Diabetes Cardiovascular History: Reports: Hx Atrial Fibrillation Denies: Hx Pacemaker/ICD Musculoskeletal History: Denies: Hx Arthritis, Hx Osteoporosis Sensory History: Reports: Hx Contacts or Glasses - reading glasses Denies: Hx Hearing Aid Opthamlomology History: Reports: Hx Contacts or Glasses - reading glasses Neurological History: Reports: Other Neuro Impairments/Disorders - NEUROPATHY Psychiatric History: Denies: Hx Panic Disorder Infectious Disease History: No Infectious Disease History: Denies: Traveled Outside the [place] in Last 30 Days - Family History Known Family History: Positive: Cardiac Disease, Diabetes - Social History Alcohol Use: None Substance Use Type: Reports: None Smoking Status (MU): Never Smoked Tobacco Review of Systems Positive: Fatigue. Negative: Fever, Chills Positive: Palpitations. Negative: Chest Pain Negative: Shortness Of Breath Negative: Vomiting, Nausea Neurological: Other - POS: dizziness All Other Systems Reviewed And Are Negative: Yes Physical Exam - Summary Physical Exam Summary: VITAL SIGNS: Reviewed. GENERAL: Patient is a well-developed and nourished male who is lying comfortable in the stretcher. Patient is not in any acute respiratory distress. HEAD AND FACE: No signs of trauma. No ecchymosis, hematomas or skull depressions. No sinus tenderness. EYES: PERRLA, EOMI x 2, No injected conjunctiva, no nystagmus. EARS: Hearing grossly intact. Ear canals and tympanic membranes are within normal limits. MOUTH: Oropharynx within normal limits. NECK: Supple, trachea is midline, no adenopathy, no JVD, no carotid bruit, no c- spine tenderness, neck with full ROM. CHEST: Symmetric, no tenderness at palpation LUNGS: Clear to auscultation bilaterally. No wheezing or crackles. CVS: Irregular rhythm and tachycardic, S1 and S2 present, no murmurs or gallops appreciated. ABDOMEN: Soft, non-tender. No signs of distention. No rebound no guarding, and no masses palpated. Bowel sounds are normal. EXTREMITIES: FROM in all major joints, no edema, no cyanosis or clubbing. NEURO: Alert and oriented x 3. No acute neurological deficits. Speech is normal and follows commands. SKIN: Dry and warm Triage Information Reviewed: Yes Vital Signs On Initial Exam: Initial Vitals Temp Pulse Resp BP Pulse Ox 98.1 F 72 17 115/74 97 11/20/17 17:32 11/20/17 17:32 11/20/17 17:32 11/20/17 17:32 11/20/17 17:32 Vital Signs Reviewed: Yes Diagnostics - Vital Signs Vital Signs Temp Pulse Resp BP Pulse Ox 11/20/17 17:50 102 20 127/87 94 11/20/17 17:46 11 11/20/17 17:32 98.1 F 72 17 115/74 97 - Laboratory Lab Results: Lab Results 11/20/17 11/20/17 11/20/17 Range/Units 18:56 18:56 18:56 WBC 8.3 (3.5-10.8) 10^3/ul RBC 4.55 (4.00-5.40) 10^6/ul Hgb 14.4 (14.0-18.0) g/dl Hct 42 (42-52) % MCV 92 (80-94) fL MCH 32 H (27-31) pg MCHC 35 (31-36) g/dl RDW 13 (10.5-15) % Plt Count 220 (150-450) 10^3/ul MPV 7.7 (7.4-10.4) um3 Neut % (Auto) 68.5 (38-83) % Lymph % (Auto) 22.9 L (25-47) % Reeves % (Auto) 6.3 (0-7) % Eos % (Auto) 1.2 (0-6) % Baso % (Auto) 1.1 (0-2) % Absolute Neuts (auto) 5.7 (1.5-7.7) 10^3/ul Absolute Lymphs (auto) 1.9 (1.0-4.8) 10^3/ul Absolute Monos (auto) 0.5 (0-0.8) 10^3/ul Absolute Eos (auto) 0.1 (0-0.6) 10^3/ul Absolute Basos (auto) 0.1 (0-0.2) 10^3/ul Absolute Nucleated RBC 0 10^3/ul Nucleated RBC % 0 INR (Anticoag Therapy) 1.43 H (0.77-1.02) APTT 36.5 H (26.0-36.3) seconds Sodium 139 (135-145) mmol/L Potassium 4.5 (3.5-5.0) mmol/L Chloride 105 (101-111) mmol/L Carbon Dioxide 25 (22-32) mmol/L Anion Gap 9 (2-11) mmol/L BUN 18 (6-24) mg/dL Creatinine 1.36 H (0.67-1.17) mg/dL Est GFR ( Amer) 63.1 (>60) Est GFR (Non-Af Amer) 52.1 (>60) BUN/Creatinine Ratio 13.2 (8-20) Glucose 116 H (70-100) mg/dL Lactic Acid (0.5-2.0) mmol/L Calcium 9.7 (8.6-10.3) mg/dL Magnesium 2.1 (1.9-2.7) mg/dL Total Bilirubin 1.90 H (0.2-1.0) mg/dL AST 21 (13-39) U/L ALT 15 (7-52) U/L Alkaline Phosphatase 51 (34-104) U/L Troponin I 0.01 (<0.04) ng/mL B-Natriuretic Peptide ( - 100) pg/mL Total Protein 7.2 (6.4-8.9) g/dL Albumin 3.9 (3.2-5.2) g/dL Globulin 3.3 (2-4) g/dL Albumin/Globulin Ratio 1.2 (1-3) TSH 2.04 (0.34-5.60) mcIU/mL 11/20/17 11/20/17 Range/Units 18:56 18:56 WBC (3.5-10.8) 10^3/ul RBC (4.00-5.40) 10^6/ul Hgb (14.0-18.0) g/dl Hct (42-52) % MCV (80-94) fL MCH (27-31) pg MCHC (31-36) g/dl RDW (10.5-15) % Plt Count (150-450) 10^3/ul MPV (7.4-10.4) um3 Neut % (Auto) (38-83) % Lymph % (Auto) (25-47) % Reeves % (Auto) (0-7) % Eos % (Auto) (0-6) % Baso % (Auto) (0-2) % Absolute Neuts (auto) (1.5-7.7) 10^3/ul Absolute Lymphs (auto) (1.0-4.8) 10^3/ul Absolute Monos (auto) (0-0.8) 10^3/ul Absolute Eos (auto) (0-0.6) 10^3/ul Absolute Basos (auto) (0-0.2) 10^3/ul Absolute Nucleated RBC 10^3/ul Nucleated RBC % INR (Anticoag Therapy) (0.77-1.02) APTT (26.0-36.3) seconds Sodium (135-145) mmol/L Potassium (3.5-5.0) mmol/L Chloride (101-111) mmol/L Carbon Dioxide (22-32) mmol/L Anion Gap (2-11) mmol/L BUN (6-24) mg/dL Creatinine (0.67-1.17) mg/dL Est GFR ( Amer) (>60) Est GFR (Non-Af Amer) (>60) BUN/Creatinine Ratio (8-20) Glucose (70-100) mg/dL Lactic Acid 1.9 (0.5-2.0) mmol/L Calcium (8.6-10.3) mg/dL Magnesium (1.9-2.7) mg/dL Total Bilirubin (0.2-1.0) mg/dL AST (13-39) U/L ALT (7-52) U/L Alkaline Phosphatase (34-104) U/L Troponin I (<0.04) ng/mL B-Natriuretic Peptide 130 H ( - 100) pg/mL Total Protein (6.4-8.9) g/dL Albumin (3.2-5.2) g/dL Globulin (2-4) g/dL Albumin/Globulin Ratio (1-3) TSH (0.34-5.60) mcIU/mL Result Diagrams: 11/20/17 18:56 11/20/17 18:56 Lab Statement: Any lab studies that have been ordered have been reviewed, and results considered in the medical decision making process. - Radiology Chest XR Xray Interpretation: No Acute Changes - IMPRESSION: No acute cardiopulmonary process evident. Dr. Del Rosario has reviewed this radiology report. Radiology Interpretation Completed By: Radiologist - EKG 17:44 Cardiac Rate: Tachycardia - at 120 bpm EKG Rhythm: Atrial Fibrillation ST Segment: Non-Specific EKG Interpretation: Non specific ST changes. 19:08 Cardiac Rate: NL - 79 bpm EKG Rhythm: Sinus Rhythm ST Segment: Non-Specific EKG Interpretation: Non-specific T wave changes in the inferior leads Re-Evaluation - Re-Evaluation First Eval Re-Evaluation Time: 18:38 Comment: Pt spontaneously converted back to sinus rhythm. 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 Pt sat down for 1 hour without resolution. Denies chest pain, SOB, nausea, vomiting. He went to his PCP's office at 16:30 and was found to have irregular heart rate. Pt notes he has felt more fatigue in the past week. Currently on Xarelto and Metoprolol. EKG shows atrial fibrillation at 120 bpm. Chest XR reveals no acute cardiopulmonary process evident. In the ED course the pt was given one time bolus IV fluids, Repeat EKG is sinus rhythm with nonspecific T wave changes in the inferior leads. Blood work was done with results including a troponin of 0.01, creatinine of 1.36, lactic acid of 1.9, INR of 1.43 and APTT of 36.5. The pt eloped, walking out without talking to nurses or doctors after removing his own IV. - Diagnoses Provider Diagnoses: Paroxysmal A-fib Discharge - Sign-Out/Discharge Documenting (check all that apply): Discharge/Admit/Transfer - Eloped - Discharge Plan Condition: Stable Disposition: ELOPEMENT Referrals: Vilma Garcia MD [Primary Care Provider] - - Billing Disposition and Condition Condition: STABLE Disposition: Elopement The documentation as recorded by the Garry del rosario Angela accurately reflects the service I personally performed and the decisions made by me, Basil Del Rosario MD.
== END | disposition left against medical advice (07) ==
LOC: ED 17:29
DX: I48.0 Paroxysmal atrial fibrillation (principal); E11.9 Type 2 diabetes mellitus without complications; Z79.01 Long term (current) use of anticoagulants; Z79.84 Long term (current) use of oral hypoglycemic drugs; Z79.899 Other long term (current) drug therapy; Z53.21 Procedure and treatment not carried out due to patient leaving prior to being seen by health care provider
CPT/HCPCS: 36415; 71045; 80053; 83605; 83735; 83880; 84443; 84484; 85025; 85610; 85730; 93005; 96374; 99283; J1160

== ENCOUNTER → 2018-10-14 11:50 | Emergency (ER) | payer MEDICARE, MEDICAID ==
[~2018-10-14 11:50] MED LIST changes: +Albuterol 2.5 MG/3 ML NEB.SOL* (0.083%) INH ONE; +Azithromycin 500 mg/250 ml NS 500 MG/250 ML BAG IVPB ONE; -Digoxin IV* 0.5 MG/2 ML AMP (0.25 MG/ML) IV ONE; -Diltiazem IV* 5 MG/ML 5 ML VIAL (for loading dose/IV Push) (25 MG) IV SLOW PU ONE; -NS 0.9% 1000 ML* 1,000 ML IV ONE; +NS 0.9% 1000 ML** 1,000 ML IV.FLUID IV ONE; +cefTRIAXone(*) 1 GM in NS 0.9% 50 ML* 50 ML IVPB ONE
--- NOTE | 2018-10-14 12:16 | ED ---
Complex/Multi-Sys Presentation - HPI Summary HPI Summary: This patient is a 68 year old M presenting to ED with hx of intermittent afib and a chief complaint of SOB, dizziness/light-headedness, and fatigue since 10/09. The patient rates the pain 0/10 in severity. Symptoms aggravated by nothing. Symptoms alleviated by nothing. Patient reports excessive productive coughing and sneezing, near-syncope on the way to his morning appointment, wheezing, chills, diaphoresis, and decreased appetite. Patient denies fever. He had an appointment with Dr. Garcia earlier today at 1030 and they sent him here to [facility]. PMHx of seasonal allergies. Denies hx of asthma and HTN. Patient is a nonsmoker. Patient is on metformin, metoprolol, and Xarelto. - History Of Current Complaint Chief Complaint: EDShortnessOfBreath Time Seen by Provider: 10/14/18 12:06 Hx Obtained From: Patient Onset/Duration: Sudden Onset, Lasting Days - since 10/09/18, Still Present Timing: Constant, Days Severity Currently: None Aggravating Factor(s): nothing Alleviating Factor(s): nothing Associated Signs And Symptoms: Positive: Dizziness, SOB, Cough, Wheezing, Diaphoresis, Other - near-syncope, chills; decreased appetite. Negative: Fever - Allergies/Home Medications Allergies/Adverse Reactions: Allergies Allergy/AdvReac Type Severity Reaction Status Date / Time Grass and hay Allergy Rash Uncoded 12/21/16 09:30 PMH/Surg Hx/FS Hx/Imm Hx Endocrine/Hematology History: Reports: Hx Diabetes Cardiovascular History: Reports: Hx Atrial Fibrillation Denies: Hx Hypertension, Hx Pacemaker/ICD Respiratory History: Denies: Hx Asthma Musculoskeletal History: Denies: Hx Arthritis, Hx Osteoporosis Sensory History: Reports: Hx Contacts or Glasses - reading glasses Denies: Hx Hearing Aid Opthamlomology History: Reports: Hx Contacts or Glasses - reading glasses Neurological History: Reports: Other Neuro Impairments/Disorders - NEUROPATHY Psychiatric History: Denies: Hx Panic Disorder Infectious Disease History: No Infectious Disease History: Denies: Traveled Outside the [place] in Last 30 Days - Family History Known Family History: Positive: Cardiac Disease, Diabetes - Social History Alcohol Use: None Substance Use Type: Reports: None Smoking Status (MU): Never Smoked Tobacco Review of Systems Positive: Chills, Skin Diaphoresis. Negative: Fever Positive: Other - sneezing Positive: Shortness Of Breath, Cough, Other - wheezing Positive: Other - decreased appetite Neurological: Other - dizziness/light-headedness, near-syncope All Other Systems Reviewed And Are Negative: Yes Physical Exam - Summary Physical Exam Summary: Appearance: Non-toxic appearing elderly man, Well-nourished, lying in bed comfortably. No acute distress. Skin: Warm, dry, no obvious rash Eyes: sclera anicteric, no conjunctival pallor ENT: mucous membranes moist, pharynx appears normal Neck: Supple, nontender Respiratory: No signs of respiratory distress. Bronchial breath sounds with e-a changes on the right, associated with scattered rhonchi. Cardiovascular: Normal S1, S2. No murmurs. Normal distal pulses in tibial and radial bilaterally. Abdomen: Soft, nontender, normal active bowel sounds present Musculoskeletal: Normal, Strength/ROM Intact Neurological: A&Ox3, awake and alert, mentation is normal, speech is fluent and appropriate Psychiatric: affect is normal, does not appear anxious or depressed Triage Information Reviewed: Yes Vital Signs On Initial Exam: Initial Vitals Temp Pulse Resp BP Pulse Ox 98.0 F 107 17 117/83 96 10/14/18 11:54 10/14/18 11:54 10/14/18 11:54 10/14/18 11:54 10/14/18 11:54 Vital Signs Reviewed: Yes Diagnostics - Vital Signs Vital Signs Temp Pulse Resp BP Pulse Ox 10/14/18 12:01 97 22 97 10/14/18 12:00 105 20 117/83 96 10/14/18 11:58 105 25 96 10/14/18 11:54 98.0 F 107 17 117/83 96 - Laboratory Result Diagrams: 10/14/18 12:43 10/14/18 12:43 Lab Statement: Any lab studies that have been ordered have been reviewed, and results considered in the medical decision making process. - Radiology CXR Radiology Interpretation Completed By: Radiologist Summary of Radiographic Findings: There is suggestion of a density in the right perihilar region which may represent pneumonia. Follow-up exam is suggested. Dr. Liu has reviewed this radiology report. - EKG 1200 Cardiac Rate: Other Rate - afib at 106 BPM EKG Rhythm: Atrial Fibrillation Summary of EKG Findings: non-STEMI Re-Evaluation - Re-Evaluation First Eval Re-Evaluation Time: 13:23 Change: Improved Comment: The patient is doing pretty well and is eating currently. We turned off his oxygen and will monitor his O2 sat. Second Eval Re-Evaluation Time: 13:31 Comment: Discussed consult. Complex Multi-Symp Course/Dx Assessment/Plan: This patient is a 68 year old M presenting to ED with hx of intermittent afib and a chief complaint of SOB, dizziness/light-headedness, and fatigue since 10/09/18. EKG reveals afib at 106 BPM and non-STEMI. CXR reveals There is suggestion of a density in the right perihilar region which may represent pneumonia. Follow-up exam is suggested. Consulted Dr. Garcia at 1327 about the patient's case and she just wants to make sure he has a way of reaching out for help in the future just in case. The patient will be discharged with dx of pneumonia and atrial fibrillation. Patient understands and agrees with this plan. I think his mild tachycardia is likely reactive to the infection and would be reluctant to push his rate control medication at this point, as this will likely improve on its own as the infection gets better , which it sounds like may already be happening as his cough is somewhat better today than over the weekend. The patient would prefer to stay out of the hospital for treatment, and I think that is reasonable at present, but he was cautioned that if he starts feeling worse he should come back right away. - Diagnoses Differential Diagnoses/HQI/PQRI: Other - pneumonia and atrial fibrillation Provider Diagnoses: Atrial fibrillation, Pneumonia - Physician Notifications Discussed Care Of Patient With: Vilma Garcia Time Discussed With Above Provider: 13:27 Instructed by Provider To: Other - Consulted Dr. Garcia about the patient's case and she just wants to make sure he has a way of reaching out for help in the future just in case. Discharge - Sign-Out/Discharge Documenting (check all that apply): Patient Departure - discharge Patient Received Moderate/Deep Sedation with Procedure: No - Discharge Plan Condition: Good Disposition: HOME Prescriptions: Amoxicillin/Clavulanate TAB* [Augmentin TAB 875*] 875 mg PO BID #20 tab Patient Education Materials: A-fib (Atrial Fibrillation) (ED), Bacterial Pneumonia (ED) Referrals: Vilma Garcia MD [Primary Care Provider] - 1 Week Additional Instructions: I think you have a respiratory infection, likely pneumonia, causing your symptoms. The atrial fibrillation coming back was likely precipitated by the infection. I have prescribed antibiotic to treat the infection, and am hopeful that we can keep you out of the hospital. However it would not surprise me tremendously if you got worse and needed to be admitted, so pay attention to your body and if you are feeling worse come back to the ED. - Billing Disposition and Condition Condition: GOOD Disposition: Home - Attestation Statements Document Initiated by Corby: Yes Documenting Scribe: Moises Munroe Provider For Whom Corby is Documenting (Include Credential): John Liu MD Scribe Attestation: I, Moises Munroe, scribed for John Liu MD on 10/14/18 at 1707. Scribe Documentation Reviewed: Yes Provider Attestation: The documentation as recorded by the Moises del rosario accurately reflects the service I personally performed and the decisions made by me, John Liu MD Status of Scribe Document: Viewed
[2018-10-14 12:56] LABS: ABS Eosinophils 0.1 10^3/ul (0-0.6); ABS Monocytes 0.4 10^3/ul (0-0.8); ABS Neutrophils 2.6 10^3/ul (1.5-7.7); Eosinophil % 2.6 %; Hematocrit 41 % (42-52); Hemoglobin 13.7 g/dL (14.0-18.0); Lymphocyte % 24.5 %; Mean Corpuscular HGB Conc 34 g/dL (31-36); Mean Corpuscular Hemoglobin 32 pg (27-31); Mean Corpuscular Volume 96 fL (80-94); Mean Platelet Volume 7.6 fL (7.4-10.4); Nucleated Red Blood Cells % 0.1; Platelet Count 164 10^3/uL (150-450); Red Blood Count 4.23 10^6 /uL (4.18-5.48); Red Cell Distribution Width 13 % (10.5-15); White Blood Count 4.2 10^3/uL (3.5-10.8)
[2018-10-14 13:03] LABS: INR 1.67 (0.82-1.09)
[2018-10-14 13:13] LABS: Albumin 3.6 g/dL (3.2-5.2); Albumin/Globulin Ratio 1.1 (1-3); BUN/Creatinine Ratio 18.6 (8-20); Calcium 8.5 mg/dL (8.6-10.3); EGFR African American 87.6 (>60); EGFR Non-African American 72.4 (>60); Globulin 3.4 g/dL (2-4); Potassium 3.7 mmol/L (3.5-5.0); Total Bilirubin 2.1 mg/dL (0.2-1.0)
[2018-10-14 13:14] LABS: Troponin I 0.01 ng/mL (<0.04)
[2018-10-14 15:31] VITALS: BP 119/73
== END | disposition home or self-care (01) ==
LOC: ED 11:50
DX: I48.91 Unspecified atrial fibrillation (principal); R94.31 Abnormal electrocardiogram [ECG] [EKG]; J18.9 Pneumonia, unspecified organism; E11.9 Type 2 diabetes mellitus without complications
CPT/HCPCS: 36415; 71045; 80053; 83605; 84484; 85025; 85610; 87040; 93005; 96361; 96365; 96368; 99284; J0456; J0696

== ENCOUNTER 2018-10-24 09:45 | Emergency (ER) | payer MEDICARE, MEDICAID ==
--- NOTE | 2018-10-24 10:24 | ED ---
Complex/Multi-Sys Presentation - HPI Summary HPI Summary: 68 year old M presenting to [facility] with a chief complaint of shortness of breath , dizziness, productive cough, fatigue since yesterday. The patient rates the pain 0/10 in severity. Symptoms aggravated by exertion. Symptoms alleviated by nothing. Patient denies fever and palpitations. Patient was seen in ED on and diagnosed with pneumonia and A-fib. Patient has hx A-fib. He takes takes Xarelto and metoprolol. Patient has been taking antibiotics for the last 10 days. Patient has follow up appointment scheduled with his primary care provider on 10/25/18. He states that he has essentially been bed ridden since his diagnoses. Yesterday, he got out of bed and realized he was still having symptoms. He spoke with his PCP yesterday afternoon who referred him to the ED. - History Of Current Complaint Chief Complaint: EDDysrhythmPalp Time Seen by Provider: 10/24/18 10:12 Hx Obtained From: Patient Onset/Duration: Lasting Days - 1, Still Present Timing: Constant Severity Currently: None Aggravating Factor(s): Exertion Alleviating Factor(s): Nothing Associated Signs And Symptoms: Positive: Other - NEGATIVE: fever, palpitations - Allergies/Home Medications Allergies/Adverse Reactions: Allergies Allergy/AdvReac Type Severity Reaction Status Date / Time Grass and hay Allergy Rash Uncoded 12/21/16 09:30 PMH/Surg Hx/FS Hx/Imm Hx Previously Healthy: No Endocrine/Hematology History: Reports: Hx Diabetes Cardiovascular History: Reports: Hx Atrial Fibrillation, Other Cardiovascular Problems/Disorders - DIABETIC Denies: Hx Hypertension, Hx Pacemaker/ICD Respiratory History: Denies: Hx Asthma Musculoskeletal History: Denies: Hx Arthritis, Hx Osteoporosis Sensory History: Reports: Hx Contacts or Glasses - reading glasses Denies: Hx Hearing Aid Opthamlomology History: Reports: Hx Contacts or Glasses - reading glasses Neurological History: Reports: Other Neuro Impairments/Disorders - NEUROPATHY Psychiatric History: Denies: Hx Panic Disorder - Surgical History Surgery Procedure, Year, and Place: Colonoscopy Infectious Disease History: No Infectious Disease History: Denies: Traveled Outside the [place] in Last 30 Days - Family History Known Family History: Positive: Cardiac Disease, Diabetes - Social History Alcohol Use: None Hx Substance Use: No Substance Use Type: Reports: None Hx Tobacco Use: No Smoking Status (MU): Never Smoked Tobacco Review of Systems Positive: Fatigue. Negative: Fever Negative: Palpitations Positive: Shortness Of Breath, Cough Neurological: Other - Dizziness All Other Systems Reviewed And Are Negative: Yes Physical Exam - Summary Physical Exam Summary: VITAL SIGNS: Reviewed. GENERAL: Patient is a well-developed and nourished MALE who is lying comfortable in the stretcher. Patient is not in any acute respiratory distress. HEAD AND FACE: No signs of trauma. No ecchymosis, hematomas or skull depressions. No sinus tenderness. EYES: PERRLA, EOMI x 2, No injected conjunctiva, no nystagmus. EARS: Hearing grossly intact. Ear canals and tympanic membranes are within normal limits. MOUTH: Oropharynx within normal limits. NECK: Supple, trachea is midline, no adenopathy, no JVD, no carotid bruit, no c- spine tenderness, neck with full ROM. CHEST: Symmetric, no tenderness at palpation LUNGS: Clear to auscultation bilaterally. No wheezing or crackles. CVS: Regular rate and rhythm, S1 and S2 present, no murmurs or gallops appreciated. ABDOMEN: Soft, non-tender. No signs of distention. No rebound no guarding, and no masses palpated. Bowel sounds are normal. EXTREMITIES: FROM in all major joints, no edema, no cyanosis or clubbing. NEURO: Alert and oriented x 3. No acute neurological deficits. Speech is normal and follows commands. SKIN: Dry and warm. Triage Information Reviewed: Yes Vital Signs On Initial Exam: Initial Vitals Temp Pulse Resp BP Pulse Ox 98.2 F 100 20 139/84 100 10/24/18 09:47 10/24/18 09:47 10/24/18 09:47 10/24/18 09:47 10/24/18 09:47 Vital Signs Reviewed: Yes Diagnostics - Vital Signs Vital Signs Temp Pulse Resp BP Pulse Ox 10/24/18 09:47 98.2 F 100 20 139/84 100 - Laboratory Result Diagrams: 10/24/18 10:42 10/24/18 10:42 Lab Statement: Any lab studies that have been ordered have been reviewed, and results considered in the medical decision making process. - Radiology CXR Radiology Interpretation Completed By: Radiologist Summary of Radiographic Findings: 1. Resolution of previous RIGHT perihilar opacity consistent with resolution of pneumonia or atelectasis. 2. No acute cardiopulmonary process evident. ED physician has reviewed this report. - EKG 1035 Cardiac Rate: NL - 84 BPM EKG Rhythm: Sinus Rhythm Summary of EKG Findings: Diffuse ST abnormalities, normal axis Complex Multi-Symp Course/Dx Assessment/Plan: 68 year old M presenting to [facility] with a chief complaint of shortness of breath, dizziness, productive cough, fatigue since yesterday. The patient rates the pain 0/10 in severity. Symptoms aggravated by exertion. Symptoms alleviated by nothing. Patient denies fever and palpitations. Patient was seen in ED on 10/14/18 and diagnosed with pneumonia and A-fib. Patient has hx A-fib. He takes takes Xarelto and metoprolol. Patient has been taking antibiotics for the last 10 days. Patient has follow up appointment scheduled with his primary care provider on 10/25/18. He states that he has essentially been bed ridden since his diagnoses. Yesterday, he got out of bed and realized he was still having symptoms. He spoke with his PCP yesterday afternoon who referred him to the ED. Blood test results without any significant abnormality except for hematocrit 41, potassium 3.3 for which the patient was given potassium chloride, glucose is 101, lactic acid is 2.2, and total bilirubin is 1.3. Chest x-ray impression: Reduction of previous right perihilar opacity consistent with the resolution of pneumonia or atelectasis. No acute cardiopulmonary process evident. EKG shows a normal sinus rhythm without any ST elevations. Therefore, since the patient has normal blood test results, the chest x-ray has improved from his pneumonia, and the EKG is in normal sinus rhythm, the patient will be discharged home with follow-up with primary care physician. Since the patient is not hypoxic or tachycardic, I have no suspicion for a blood clot. The patient is also taking blood thinners for his atrial fibrillation. I discussed all the findings and test results with the patient. Patient was instructed to return to the emergency room immediately if any of the symptoms return or worsen. Plan of care was discussed with the patient and he understands and agrees. All questions were answered to patient satisfaction. There were no further complaints or concerns. Lung exam before discharge: CTA B/L. Good air exchange. No wheezing or crackles heard. CVS: S1 and S2 present. No murmurs appreciated. Patient is alert and oriented x 3. Patient is hemodynamically stable. Patient will be discharged home with follow up PCP in the next 2-3 days. - Diagnoses Provider Diagnoses: Weakness, Cough Discharge - Sign-Out/Discharge Documenting (check all that apply): Patient Departure - Discharge Patient Received Moderate/Deep Sedation with Procedure: No - Discharge Plan Condition: Stable Disposition: HOME Patient Education Materials: Weakness (ED), Acute Cough (ED) Referrals: Vilma Garcia MD [Primary Care Provider] - 10/25/18 Additional Instructions: Follow up with your primary care provider during your scheduled appointment for tomorrow, 10/25/18. Return to the Emergency Department for new or worsening symptoms. - Billing Disposition and Condition Condition: STABLE Disposition: Home - Attestation Statements Document Initiated by Corby: Yes Documenting Scribe: Lillian Hinton Provider For Whom Corby is Documenting (Include Credential): Allen Hopson MD Scribe Attestation: Lillian Lucas, scribed for Allen Hopson MD on 10/24/18 at 1850. Scribe Documentation Reviewed: Yes Provider Attestation: The documentation as recorded by the Lillian del rosario accurately reflects the service I personally performed and the decisions made by , Allen Hopson MD Status of Scribe Document: Viewed
[2018-10-24 11:07] LABS: ABS Eosinophils 0.4 10^3/ul (0-0.6); ABS Lymphocytes 1.7 10^3/ul (1.0-4.8); ABS Monocytes 0.6 10^3/ul (0-0.8); ABS Neutrophils 4.3 10^3/ul (1.5-7.7); Eosinophil % 5.1 %; Hematocrit 41 % (42-52); Hemoglobin 14.1 g/dL (14.0-18.0); Lymphocyte % 24.9 %; Mean Corpuscular HGB Conc 34 g/dL (31-36); Mean Corpuscular Hemoglobin 33 pg (27-31); Mean Corpuscular Volume 96 fL (80-94); Mean Platelet Volume 7.7 fL (7.4-10.4); Platelet Count 295 10^3/uL (150-450); Red Cell Distribution Width 13 % (10.5-15)
[2018-10-24 11:15] LABS: Activated Partial Thrombo Time 34.7 seconds (26.0-38.0); INR 1.24 (0.82-1.09)
[2018-10-24 11:27] LABS: CKMB ng/mL 2.6 ng/mL (0.6-6.3)
[2018-10-24 11:30] LABS: Albumin 3.6 g/dL (3.2-5.2); Albumin/Globulin Ratio 1.1 (1-3); BUN/Creatinine Ratio 16.7 (8-20); Calcium 9.1 mg/dL (8.6-10.3); EGFR African American 101.2 (>60); EGFR Non-African American 83.7 (>60); Globulin 3.2 g/dL (2-4); Potassium 3.3 mmol/L (3.5-5.0); Total Bilirubin 1.3 mg/dL (0.2-1.0); Total Protein 6.8 g/dL (6.4-8.9)
[2018-10-24 12:05] LABS: TSH (Thyroid Stimulating Horm) 1.6 mcIU/mL (0.34-5.60)
[2018-10-24 12:29] VITALS: BP 129/62
[2018-10-24 12:53] LABS: Urine Appearance Cloudy; Urine Bacteria Absent (Absent); Urine Bilirubin Negative (Negative); Urine Blood Negative (Negative); Urine Color Yellow; Urine Glucose Negative (Negative); Urine Ketones Trace (Negative); Urine Nitrite Negative (Negative); Urine Protein Negative (Negative); Urine Red Blood Cell 3+(>10/hpf) (Absent); Urine Specific Gravity 1.021 (1.010-1.030); Urine Squamous Epithelial Cell Present (Absent); Urine Urobilinogen Negative (Negative); Urine White Blood Cell 3+(>20/hpf) (Absent)
== END 2018-10-24 12:29 | disposition home or self-care (01) ==
LOC: ED 09:45
DX: R53.1 Weakness (principal); R05 Cough; R94.31 Abnormal electrocardiogram [ECG] [EKG]; E11.9 Type 2 diabetes mellitus without complications; I48.91 Unspecified atrial fibrillation; G62.9 Polyneuropathy, unspecified
CPT/HCPCS: 36415; 71046; 80053; 81003; 81015; 82550; 82553; 83605; 83735; 83880; 84443; 84484; 85025; 85610; 85730; 87086; 93005; 99283

== ENCOUNTER 2019-01-09 01:05 | Emergency (ER) | payer MEDICARE, MEDICAID ==
[2019-01-09] MEDS ORDERED: Lidocaine 2% EPI 1:200000 MPF* 10 ML VIAL INJ ONE (03:20)
[2019-01-09] MEDS ORDERED: Bupivacaine 0.5% W/EPI SDV* 10 ML VIAL INJ ONE (03:20)
--- NOTE | 2019-01-09 03:28 | ED ---
Laceration/Wound HPI - HPI Summary HPI Summary: The patient is a 68 y/o M presenting to [facility] with a chief complaint of sudden onset laceration to the right index finger occurring at 2330 last night. He reports that he was moving some machines when he fell and cut the finger, leaving the laceration. He believes he may have hit glass or a piece of dipika metal. The laceration is actively bleeding, but it is primarily controlled after compression. He denies numbness. The dull pain is currently rated 2/10 in severity. PMHx: DM, afib, neuropathy. Nonsmoker, no EtOH, no substance use. - History of Current Complaint Stated Complaint: FINGER LAC PER PT Time Seen by Provider: 01/09/19 03:18 Hx Obtained From: Patient Onset/Duration: Sudden Onset, Lasting Hours - starting at 2330, Still Present Aggravating: Nothing Alleviating: Compression Timing: Constant Onset Severity: Mild Current Severity: Mild Pain Intensity: 2 Pain Scale Used: 0-10 Numeric Associated Signs & Symptoms: Pain - mild at laceration site - Additional Pertinent History Primary Care Physician: DANIE - Allergy/Home Medications Allergies/Adverse Reactions: Allergies Allergy/AdvReac Type Severity Reaction Status Date / Time Grass and hay Allergy Rash Uncoded 01/09/19 01:09 PMH/Surg Hx/FS Hx/Imm Hx Endocrine/Hematology History: Reports: Hx Diabetes Cardiovascular History: Reports: Hx Atrial Fibrillation, Other Cardiovascular Problems/Disorders - DIABETIC Denies: Hx Hypertension, Hx Pacemaker/ICD Respiratory History: Denies: Hx Asthma Musculoskeletal History: Denies: Hx Arthritis, Hx Osteoporosis Sensory History: Reports: Hx Contacts or Glasses - reading glasses Denies: Hx Hearing Aid Opthamlomology History: Reports: Hx Contacts or Glasses - reading glasses Neurological History: Reports: Other Neuro Impairments/Disorders - NEUROPATHY Psychiatric History: Denies: Hx Panic Disorder - Surgical History Surgical History: Yes Surgery Procedure, Year, and Place: Colonoscopy Infectious Disease History: No Infectious Disease History: Denies: Traveled Outside the [place] in Last 30 Days - Family History Known Family History: Positive: Cardiac Disease, Diabetes - Social History Alcohol Use: None Hx Substance Use: No Substance Use Type: Reports: None Hx Tobacco Use: No Smoking Status (MU): Never Smoked Tobacco Review of Systems Positive: Other - laceration to the right pointer finger with active bleeding Negative: Numbness All Other Systems Reviewed And Are Negative: Yes Physical Exam - Summary Physical Exam Summary: Appearance: Well-appearing, Well-nourished, Somewhat disheveled elderly male not in any acute distress Skin: Right index oblong distal phalanx laceration catching part of the nail approximately 2cm long, Warm, dry, no obvious rash Eyes: sclera anicteric, no conjunctival pallor ENT: mucous membranes moist Neck: deferred Respiratory: No signs of respiratory distress Cardiovascular: Appears well perfused, pulses are nml Abdomen: deferred Musculoskeletal: Moving all 4 extremities without obvious discomfort Neurological: Awake and alert, mentation is normal, speech is fluent and appropriate Psychiatric: affect is normal, does not appear anxious or depressed Triage Information Reviewed: Yes Vital Signs On Initial Exam: Initial Vitals Temp Pulse Resp BP Pulse Ox 97.9 F 90 16 133/90 98 01/09/19 01:07 01/09/19 01:07 01/09/19 01:07 01/09/19 01:07 01/09/19 01:07 Vital Signs Reviewed: Yes Procedures - Laceration/Wound Repair 1 Location: upper extremity - right hand, index finger Description: Irregular Anesthesia: Digital, Lido, Marcaine Length, Depth and Shape: 2 cm Laceration/Wound Explored: clean Suture Type: Prolene - 5-0 Diagnostics - Vital Signs Vital Signs Temp Pulse Resp BP Pulse Ox 01/09/19 01:07 97.9 F 90 16 133/90 98 - Laboratory Lab Statement: Any lab studies that have been ordered have been reviewed, and results considered in the medical decision making process. Re-Evaluation - Re-Evaluation First Eval Re-Evaluation Time: 05:45 Comment: I performed laceration repair. Second Eval Re-Evaluation Time: 06:00 Comment: Patient feels better after repair, his finger is still numb. We discussed discharge home. Laceration Repair Course/Dx - Course Course Of Treatment: Patient is a 68 y/o M with cc of sudden onset laceration to the right index finger occurring at 2330 last night after falling and possibly cutting the finger on glass or metal. Upon physical exam, the patient appears to be a somewhat disheveled elderly male not in any acute distress with a right index oblong distal phalanx laceration catching part of the nail approximately 2cm long. The 2 cm laceration was repaired with digital block with lidocaine and Marcaine, irrigated extensively with tap water after which the wound appeared cleaned, closed with 5-0 nylon sutures, no debridement, no foreign bodies. He will be discharged home with follow up with PCP for wound check and suture removal. He agrees with this plan. - Clinical Impression Provider Diagnoses: Laceration of right index finger Discharge - Sign-Out/Discharge Documenting (check all that apply): Patient Departure - Patient will be discharged home. Patient Received Moderate/Deep Sedation with Procedure: No - Discharge Plan Condition: Good Disposition: HOME Prescriptions: Cephalexin CAP* [Keflex CAP*] 500 mg PO QID #20 cap Patient Education Materials: Finger Laceration (ED) Referrals: Vilma Garcia MD [Primary Care Provider] - 1 Day (for wound check on Sunday) - Billing Disposition and Condition Condition: GOOD Disposition: Home - Attestation Statements Document Initiated by Patriceibe: Yes Documenting Scribe: Janessa Durán Provider For Whom Corby is Documenting (Include Credential): Dr. John Liu MD Scribe Attestation: Janessa Lucas scribed for Dr. John Liu MD on 01/13/19 at 0145. Scribe Documentation Reviewed: Yes Provider Attestation: The documentation as recorded by the Janessa del rosario accurately reflects the service I personally performed and the decisions made by me, Dr. John Liu MD Status of Scribe Document: Viewed
[2019-01-09] MEDS ORDERED: Bupivacaine 0.5% W/EPI SDV* 30 ML VIAL INJ ONE (03:30)
[2019-01-09] MEDS ORDERED: Lidocaine 2% w/ EPI 1:200,000* 20 ML SDV VIAL INJ ONE (03:30)
[2019-01-09] MEDS ORDERED: Cephalexin CAP* 500 MG PO ONE (05:25)
[2019-01-09 06:14] VITALS: BP 134/89
== END 2019-01-09 06:16 | disposition home or self-care (01) ==
LOC: ED 01:05
DX: S61.210A Laceration without foreign body of right index finger without damage to nail, initial encounter (principal); W45.8XXA Other foreign body or object entering through skin, initial encounter; Y92.9 Unspecified place or not applicable; E11.9 Type 2 diabetes mellitus without complications; I48.91 Unspecified atrial fibrillation
CPT/HCPCS: 12001; 99283; A9270-GY

== ENCOUNTER 2019-06-11 17:24 | Emergency (ER) | payer MEDICARE, MEDICAID ==
[2019-06-11 17:35] VITALS: BP 128/95
--- NOTE | 2019-06-11 18:19 | ED ---
Adult Trauma - HPI Summary HPI Summary: Patient complains of right side rib pain after Cabinet fell onto his right side today without moving it. Denies SOB, any other pain, injury or symptoms. Medical history is DM, A. fib. Patient on Xarelto. - History of Current Complaint Chief Complaint: EDChestWallPain Stated Complaint: POSS CRACKED RIB PER PT Time Seen by Provider: 06/11/19 18:16 Hx Obtained From: Patient Mechanism of Injury: Blunt Trauma Ambulatory at the Scene: Yes Loss of Consciousness: no loss of consciousness Force: Medium Onset/Duration: Started Hours Ago Onset of Pain: Immediate Onset Severity: Moderate Current Severity: Mild Pain Intensity: 0 Pain Scale Used: 0-10 Numeric Location: Chest Character: Dull Aggravating Factor(s): Movement Alleviating Factor(s): Nothing Associated Signs & Symptoms: Positive: Negative - Additional Pertinent History Primary Care Physician: DANIE - Allergy/Home Medications Allergies/Adverse Reactions: Allergies Allergy/AdvReac Type Severity Reaction Status Date / Time Grass and hay Allergy Rash Uncoded 06/11/19 17:35 PMH/Surg Hx/FS Hx/Imm Hx Endocrine/Hematology History: Reports: Hx Diabetes Cardiovascular History: Reports: Hx Atrial Fibrillation, Other Cardiovascular Problems/Disorders - DIABETIC Denies: Hx Hypertension, Hx Pacemaker/ICD Respiratory History: Denies: Hx Asthma History: Denies: Hx Dialysis Musculoskeletal History: Denies: Hx Arthritis, Hx Osteoporosis Sensory History: Reports: Hx Contacts or Glasses - reading glasses Denies: Hx Hearing Aid Opthamlomology History: Reports: Hx Contacts or Glasses - reading glasses EENT History: Denies: Hx Deafness Neurological History: Reports: Other Neuro Impairments/Disorders - NEUROPATHY Psychiatric History: Denies: Hx Panic Disorder - Surgical History Surgery Procedure, Year, and Place: Colonoscopy Infectious Disease History: No Infectious Disease History: Denies: Traveled Outside the [place] in Last 30 Days - Family History Known Family History: Positive: Cardiac Disease, Diabetes - Social History Alcohol Use: None Hx Substance Use: No Substance Use Type: Reports: None Hx Tobacco Use: No Smoking Status (MU): Never Smoked Tobacco Review of Systems Constitutional: Negative Eyes: Negative ENT: Negative Cardiovascular: Negative Respiratory: Negative Gastrointestinal: Negative Genitourinary: Negative Musculoskeletal: Other Skin: Negative Neurological: Negative Psychological: Normal All Other Systems Reviewed And Are Negative: Yes Physical Exam - Summary Physical Exam Summary: No ecchymosis, erythema, deformity, swelling noted to right side. Triage Information Reviewed: Yes Vital Signs On Initial Exam: Initial Vitals Temp Pulse Resp BP Pulse Ox 97.0 F 96 16 128/95 96 06/11/19 17:30 06/11/19 17:30 06/11/19 17:30 06/11/19 17:30 06/11/19 17:30 Vital Signs Reviewed: Yes Appearance: Positive: Well-Appearing Skin: Positive: Warm Head/Face: Positive: Normal Head/Face Inspection Eyes: Positive: Normal Neck: Positive: Supple Respiratory/Lung Sounds: Positive: Clear to Auscultation Cardiovascular: Positive: Normal Abdomen Description: Positive: Nontender Musculoskeletal: Positive: Normal Neurological: Positive: Normal Psychiatric: Positive: Normal AVPU Assessment: Alert - Prim Coma Scale Best Eye Response: 4 - Spontaneous Best Motor Response: 6 - Obeys Commands Best Verbal Response: 5 - Oriented Coma Scale Total: 15 Procedures - Sedation Patient Received Moderate/Deep Sedation with Procedure: No Diagnostics - Vital Signs Vital Signs Temp Pulse Resp BP Pulse Ox 06/11/19 17:30 97.0 F 96 16 128/95 96 - Laboratory Lab Statement: Any lab studies that have been ordered have been reviewed, and results considered in the medical decision making process. Adult Trauma Course/Dx - Course Course Of Treatment: Patient complains of right side rib pain after Cabinet fell onto his right side today without moving it. Denies SOB, any other pain, injury or symptoms. Medical history is DM, A. fib. Patient on Xarelto. Vital signs within normal limits. X-ray of ribs and chest negative. - Diagnoses Provider Diagnoses: Contusion of rib on right side Discharge ED - Sign-Out/Discharge Documenting (check all that apply): Patient Departure - Discharge Plan Condition: Stable Disposition: HOME Patient Education Materials: Rib Contusion (ED) Referrals: Vilma Garcia MD [Primary Care Provider] - Additional Instructions: Take Tylenol 650 mg every 6 hours for pain. Follow-up with primary care. Return to the ED for any new or worsening symptoms. - Billing Disposition and Condition Condition: STABLE Disposition: Home
== END 2019-06-11 19:15 | disposition home or self-care (01) ==
LOC: ED 17:24
DX: S20.211A Contusion of right front wall of thorax, initial encounter (principal); W20.8XXA Other cause of strike by thrown, projected or falling object, initial encounter; Y93.89 Activity, other specified; Y92.9 Unspecified place or not applicable; E11.9 Type 2 diabetes mellitus without complications; I48.91 Unspecified atrial fibrillation; Z79.01 Long term (current) use of anticoagulants
CPT/HCPCS: 99281

== ENCOUNTER 2021-07-16 20:53 | Inpatient (IN) ==
[2021-07-16] MEDS ORDERED: Piperacillin/Tazobac ADVAN 3.375 GM in NS 0.9% 100 ml BAG 100 ML IV ONE (21:33)
[2021-07-16] MEDS ORDERED: Vancomycin 1,000 MG in NS 0.9% 250 ml 250 ML IVPB ONE (21:33)
[2021-07-16] MEDS ORDERED: Metoprolol Tartrate 5 mg VIAL 5 ml VIAL (1 mg/ml) IV ONE (21:53)
[2021-07-16 21:56] LABS: ABS Basophils 0.1 10^3/ul (0-0.2); ABS Eosinophils 0.1 10^3/ul (0-0.6); ABS Lymphocytes 1.3 10^3/ul (1.0-4.8); ABS Monocytes 0.6 10^3/ul (0-0.8); ABS Neutrophils 8.1 10^3/ul (1.5-7.7); Eosinophil % 0.5 %; Hematocrit 41 % (42-52); Hemoglobin 14.1 g/dL (14.0-18.0); Lymphocyte % 13.1 %; Mean Corpuscular HGB Conc 35 g/dL (31-36); Mean Corpuscular Hemoglobin 32 pg (27-31); Mean Corpuscular Volume 92 fL (80-94); Mean Platelet Volume 7.5 fL (7.4-10.4); Platelet Count 245 10^3/uL (150-450); Red Blood Count 4.41 10^6 /uL (4.18-5.48); Red Cell Distribution Width 13 % (10-15); White Blood Count 10.2 10^3/uL (3.5-10.8)
[2021-07-16 22:04] LABS: Activated Partial Thrombo Time 29.7 seconds (26.0-38.0); INR 1.19 (0.86-1.15)
[2021-07-16 22:14] LABS: Ammonia 28 mcmol/L (16-53)
[2021-07-16 22:15] LABS: ALT 16 U/L (7-52); AST 42 U/L (13-39); Albumin 4.2 g/dL (3.2-5.2); Albumin/Globulin Ratio 1.4 (1-3); Alkaline Phosphatase 113 U/L (35-149); Anion Gap 11 mmol/L (2-11); Blood Urea Nitrogen 19 mg/dL (6-24); C Reactive Protein 12.22 mg/L (<8.01); CO2 Carbon Dioxide 26 mmol/L (22-32); Calcium 9.7 mg/dL (8.6-10.3); Chloride 100 mmol/L (101-111); Globulin 3.1 g/dL (2-4); Glucose 106 mg/dL (70-100); Potassium 3.7 mmol/L (3.5-5.0); Sodium 137 mmol/L (135-145); Total Protein 7.3 g/dL (6.4-8.9); eGFR CKD-EPI 64.3 (>60)
[2021-07-16 22:16] LABS: Troponin I 0.01 ng/mL (<0.03)
[2021-07-16 22:20] LABS: BNP 154 pg/mL (<=100)
[2021-07-16] MEDS ORDERED: Diltiazem IV push/loading dose 5 MG/ML 5 ML vial (25 mg) IV SLOW PU ONE (23:14)
[2021-07-16] MEDS ORDERED: Diltiazem IV BAG D5W Premix 125 MG/125 ML BAG IV SCH (23:45)
[2021-07-17 01:54] LABS: Phosphorus 1.7 mg/dL (2.5-5.0)
[2021-07-17] MEDS ORDERED: Enoxaparin 40 MG/0.4 ML SYR SUBCUT SCH (02:00)
[2021-07-17] MEDS ORDERED: Lactated Ringers 1000 ml BAG 1,000 ML IV SCH (02:00)
[2021-07-17 02:13] LABS: TSH Ultra Thyroid Stim Horm 1.79 mcIU/mL (0.34-5.60)
[2021-07-17] MEDS ORDERED: Dextrose 50% Syringe 50 ml 25 GM/50 ML SYRINGE IV PUSH PRN (02:51)
[2021-07-17 03:43] LABS: Alcohol, S < 13 mg/dL (<13)
[2021-07-17] MEDS ORDERED: Lactated Ringers 1000 ml BAG 1,000 ML IV ONE (03:58)
[2021-07-17] MEDS ORDERED: Vancomycin per Pharmacy 1 EA NOTE FOLLOW UP SCH (04:00)
[2021-07-17] MEDS ORDERED: Potassium Chlor 20 meq TAB.ER PO ONE (04:51)
[2021-07-17] MEDS: Lactated Ringers 1000 ml BAG 1,000 ML IV SCH ×2 (05:30→12:45)
[2021-07-17] MEDS: Cefepime 2 GM in Dextrose 2 GM/50 ML BAG IV SCH ×2 (05:30→17:46)
[2021-07-17] MEDS ORDERED: cefTRIAXone 1 gm/50 mL NS BAG 1 GM/50 ML BAG IVPB SCH ×2 (06:00→20:00)
[2021-07-17 06:23] LABS: Urine Creatinine Concentration 220.15 mg/dL
[2021-07-17] MEDS: Potassium & Sodium Phos 250 mg = 1 PACKET PO SCH ×4 (08:59→20:14)
[2021-07-17] MEDS ORDERED: Vancomycin 1000 MG in NS 0.9% 250 ML IVPB SCH (09:00)
[2021-07-17 12:11] LABS: ABS Eosinophils 0.1 10^3/ul (0-0.6); ABS Lymphocytes 1.3 10^3/ul (1.0-4.8); ABS Monocytes 0.5 10^3/ul (0-0.8); ABS Neutrophils 4.5 10^3/ul (1.5-7.7); Eosinophil % 1.6 %; Hematocrit 36 % (42-52); Hemoglobin 12.2 g/dL (14.0-18.0); Lymphocyte % 19.4 %; Mean Corpuscular HGB Conc 34 g/dL (31-36); Mean Corpuscular Hemoglobin 32 pg (27-31); Mean Corpuscular Volume 94 fL (80-94); Mean Platelet Volume 7.8 fL (7.4-10.4); Platelet Count 204 10^3/uL (150-450); Red Blood Count 3.89 10^6 /uL (4.18-5.48); Red Cell Distribution Width 13 % (10-15); White Blood Count 6.5 10^3/uL (3.5-10.8)
[2021-07-17 12:26] LABS: Calcium 8.9 mg/dL (8.6-10.3); Magnesium 1.7 mg/dL (1.9-2.7); Phosphorus 2.3 mg/dL (2.5-5.0); Potassium 4.2 mmol/L (3.5-5.0); eGFR CKD-EPI 66.2 (>60)
[2021-07-17] MEDS ORDERED: Magnesium Sulfate IV 3 GM in NS 0.9% 100 ml BAG 100 ML IVPB ONE (16:43)
[2021-07-17] MEDS ORDERED: Digoxin IV 0.5 MG/2 ML AMP (0.25 MG/ML) IV SLOW PU ONE ×2 (16:44→20:45)
[2021-07-17] MEDS ORDERED: NS 0.9% 1000 ml BAG 1,000 ML IV SCH (16:45)
[2021-07-17] MEDS ORDERED: Magnesium Sulfate 2 GM IV (Premix) IVPB ONE (17:30)
[2021-07-17 18:24] LABS: HDL Cholesterol 33.5 mg/dL
[2021-07-17] MEDS ORDERED: Magnesium Sulfate 1 GM IV 1 GM/100 ML BAG IV ONE (18:30)
[2021-07-17] MEDS ORDERED: CMCS:Dabigatran 150 mg CAP (NF) PO SCH (21:00)
[2021-07-17 21:15] LABS: Urine Appearance Clear; Urine Bilirubin Negative (Negative); Urine Blood Negative (Negative); Urine Color Yellow; Urine Glucose Negative (Negative); Urine Ketones Trace (Negative); Urine Nitrite Negative (Negative); Urine Protein Negative (Negative); Urine Specific Gravity 1.023 (1.002-1.030); Urine Urobilinogen Positive (Negative)
[2021-07-17] MEDS: Diltiazem IV BAG D5W Premix 125 MG/125 ML BAG IV SCH (22:06)
[2021-07-18] MEDS: cefTRIAXone 1 gm/50 mL NS BAG 1 GM/50 ML BAG IVPB SCH (06:20)
[2021-07-18] MEDS ORDERED: Vancomycin Trough Check NOTE FOLLOW UP ONE (08:30)
[2021-07-18 08:42] LABS: ABS Basophils 0.1 10^3/ul (0-0.2); ABS Eosinophils 0.2 10^3/ul (0-0.6); ABS Lymphocytes 1.3 10^3/ul (1.0-4.8); ABS Monocytes 0.5 10^3/ul (0-0.8); Eosinophil % 2.8 %; Hematocrit 38 % (42-52); Hemoglobin 12.9 g/dL (14.0-18.0); Lymphocyte % 21.1 %; Mean Corpuscular HGB Conc 34 g/dL (31-36); Mean Corpuscular Hemoglobin 32 pg (27-31); Mean Corpuscular Volume 94 fL (80-94); Mean Platelet Volume 7.7 fL (7.4-10.4); Platelet Count 199 10^3/uL (150-450); Red Blood Count 4.09 10^6 /uL (4.18-5.48); Red Cell Distribution Width 13 % (10-15)
[2021-07-18 08:59] LABS: Albumin 3.6 g/dL (3.2-5.2); Albumin/Globulin Ratio 1.3 (1-3); C Reactive Protein 10.85 mg/L (<8.01); Calcium 8.5 mg/dL (8.6-10.3); Globulin 2.7 g/dL (2-4); Phosphorus 2.2 mg/dL (2.5-5.0); Potassium 4.1 mmol/L (3.5-5.0); Total Bilirubin 2.3 mg/dL (0.2-1.0); Total Protein 6.3 g/dL (6.4-8.9); eGFR CKD-EPI 78.1 (>60)
[2021-07-18] MEDS: Aspirin EC 81 mg TAB.EC (enteric coated) PO SCH ×2 (09:20→11:09)
[2021-07-18] MEDS: Potassium & Sodium Phos 250 mg = 1 PACKET PO SCH ×5 (09:20→19:54)
[2021-07-18 09:29] LABS: Digoxin 0.6 ng/ml (0.8-2.0)
[2021-07-18] MEDS ORDERED: Digoxin IV 0.5 MG/2 ML AMP (0.25 MG/ML) IV SLOW PU ONE (09:29)
[2021-07-18] MEDS: Enoxaparin 40 MG/0.4 ML SYR SUBCUT SCH (16:53)
[2021-07-18] MEDS: Diltiazem IV BAG D5W Premix 125 MG/125 ML BAG IV SCH (23:15)
[2021-07-19] MEDS: cefTRIAXone 1 gm/50 mL NS BAG 1 GM/50 ML BAG IVPB SCH (05:52)
[2021-07-19 06:31] LABS: Albumin 3.6 g/dL (3.2-5.2); Albumin/Globulin Ratio 1.2 (1-3); Calcium 8.9 mg/dL (8.6-10.3); Globulin 2.9 g/dL (2-4); Potassium 3.9 mmol/L (3.5-5.0); Total Bilirubin 2.3 mg/dL (0.2-1.0); Total Protein 6.5 g/dL (6.4-8.9); eGFR CKD-EPI 94.8 (>60)
[2021-07-19] MEDS ORDERED: Potassium Chlor 20 meq TAB.ER PO ONE (06:50)
[2021-07-19 07:55] LABS: Magnesium 1.8 mg/dL (1.9-2.7); Phosphorus 2.2 mg/dL (2.5-5.0)
[2021-07-19] MEDS: Aspirin EC 81 mg TAB.EC (enteric coated) PO SCH (09:22)
[2021-07-19] MEDS: Potassium & Sodium Phos 250 mg = 1 PACKET PO SCH ×3 (09:22→16:50)
[2021-07-19] MEDS ORDERED: Magnesium Sulfate 2 gm BAG 2 GM/50 ML BAG IVPB ONE (09:41)
[2021-07-19] MEDS: Enoxaparin 40 MG/0.4 ML SYR SUBCUT SCH (16:50)
[2021-07-20] MEDS: Potassium & Sodium Phos 250 mg = 1 PACKET PO SCH ×5 (02:51→22:12)
[2021-07-20] MEDS: Aspirin EC 81 mg TAB.EC (enteric coated) PO SCH (08:48)
[2021-07-20] MEDS ORDERED: Labetalol IV 5 MG/ML 20 ml VIAL IV ONE (21:00)
[2021-07-21 06:33] LABS: Magnesium 1.8 mg/dL (1.9-2.7)
[2021-07-21] MEDS: Magnesium Sulfate 2 gm BAG 2 GM/50 ML BAG IVPB ONE ×2 (09:48→09:59)
[2021-07-21] MEDS: Potassium & Sodium Phos 250 mg = 1 PACKET PO SCH ×3 (09:49→14:35)
[2021-07-21 12:31] LABS: Albumin 3.6 g/dL (3.2-5.2); Albumin/Globulin Ratio 1.3 (1-3); Direct Bilirubin 0.2 mg/dL (0.03-0.18); Globulin 2.8 g/dL (2-4); Indirect Bilirubin 1.6 mg/dL (0.3-1.0); Total Bilirubin 1.8 mg/dL (0.2-1.0); Total Protein 6.4 g/dL (6.4-8.9)
[2021-07-29 11:59] VITALS: BP 134/78
[2021-07-29 12:41] LABS: Rapid COVID-19 Molecular Undetected (Undetected)
== END 2021-07-29 14:13 | DRG 65 ==
LOC: ED 20:53 → SUATTDRO 07-17 01:33 → EDHOLD 07-17 01:33 → MEDTELE 07-17 03:14
PROVIDERS: ADMIT Student in an Organized Health Care Education/Training Program; ATTEND Internal Medicine

== ENCOUNTER 2021-08-09 14:07 | Observation (INO) ==
[2021-08-09 18:24] LABS: ABS Basophils 0.1 10^3/ul (0-0.2); ABS Eosinophils 0.1 10^3/ul (0-0.6); ABS Lymphocytes 1.5 10^3/ul (1.0-4.8); ABS Monocytes 0.4 10^3/ul (0-0.8); Eosinophil % 1.8 %; Hematocrit 44 % (42-52); Hemoglobin 14.8 g/dL (14.0-18.0); Lymphocyte % 24.1 %; Mean Corpuscular HGB Conc 34 g/dL (31-36); Mean Corpuscular Hemoglobin 31 pg (27-31); Mean Corpuscular Volume 94 fL (80-94); Mean Platelet Volume 8.1 fL (7.4-10.4); Platelet Count 208 10^3/uL (150-450); Red Blood Count 4.73 10^6 /uL (4.18-5.48); Red Cell Distribution Width 13 % (10-15); White Blood Count 6.1 10^3/uL (3.5-10.8)
[2021-08-09 19:41] LABS: Albumin 4.2 g/dL (3.2-5.2)
[2021-08-09 19:47] LABS: Albumin/Globulin Ratio 1.4 (1-3); Calcium 9.8 mg/dL (8.6-10.3); Globulin 3.1 g/dL (2-4); Potassium 4.4 mmol/L (3.5-5.0); Total Protein 7.3 g/dL (6.4-8.9)
[2021-08-09 21:02] LABS: Total Bilirubin 2.5 mg/dL (0.2-1.0)
[2021-08-09 21:04] LABS: eGFR CKD-EPI 69.1 (>60)
[2021-08-09] MEDS: CMCS: Dabigatran 150 mg CAP (NF) PO SCH (21:55)
[2021-08-10] MEDS: CMCS: Dabigatran 150 mg CAP (NF) PO SCH ×2 (08:58→20:50)
[2021-08-10] MEDS: CMCS: SitaGLIPtin 100 mg TAB (NF) PO SCH (08:59)
[2021-08-11 05:14] LABS: Hematocrit 41 % (42-52); Hemoglobin 13.6 g/dL (14.0-18.0); Mean Corpuscular HGB Conc 33 g/dL (31-36); Mean Corpuscular Hemoglobin 31 pg (27-31); Mean Corpuscular Volume 93 fL (80-94); Mean Platelet Volume 8.4 fL (7.4-10.4); Platelet Count 182 10^3/uL (150-450); Red Blood Count 4.38 10^6 /uL (4.18-5.48); Red Cell Distribution Width 13 % (10-15); White Blood Count 6.2 10^3/uL (3.5-10.8)
[2021-08-11 05:41] LABS: Potassium 4.3 mmol/L (3.5-5.0); eGFR CKD-EPI 75.4 (>60)
[2021-08-11] MEDS: CMCS: SitaGLIPtin 100 mg TAB (NF) PO SCH (08:29)
[2021-08-11] MEDS: CMCS: Dabigatran 150 mg CAP (NF) PO SCH ×2 (08:30→19:45)
[2021-08-11 15:06] LABS: C Reactive Protein 2.45 mg/L (<8.01)
[2021-08-12] MEDS: CMCS: SitaGLIPtin 100 mg TAB (NF) PO SCH (08:43)
[2021-08-12] MEDS: CMCS: Dabigatran 150 mg CAP (NF) PO SCH ×2 (08:43→19:24)
[2021-08-13] MEDS: CMCS: SitaGLIPtin 100 mg TAB (NF) PO SCH (08:54)
[2021-08-13] MEDS: CMCS: Dabigatran 150 mg CAP (NF) PO SCH (08:54)
[2021-08-13 14:31] VITALS: BP 96/46
== END 2021-08-13 15:00 | disposition swing bed (61) ==
LOC: ED 14:07 → EDHOLD 14:07 → MED 20:26
PROVIDERS: ADMIT Internal Medicine; ATTEND Internal Medicine

== ENCOUNTER 2021-08-13 16:36 | Inpatient (IN) ==
[2021-08-13] MEDS: CMCS:Dabigatran 150 mg CAP (NF) PO SCH (22:08)
[2021-08-14] MEDS: CMCS:SitaGLIPtin 100 mg TAB (NF) PO SCH (08:56)
[2021-08-14] MEDS: CMCS:Dabigatran 150 mg CAP (NF) PO SCH ×2 (08:56→21:30)
[2021-08-15] MEDS: CMCS:SitaGLIPtin 100 mg TAB (NF) PO SCH (08:52)
[2021-08-15] MEDS: CMCS:Dabigatran 150 mg CAP (NF) PO SCH ×2 (08:52→21:49)
[2021-08-16] MEDS: CMCS:SitaGLIPtin 100 mg TAB (NF) PO SCH (09:27)
[2021-08-16] MEDS: CMCS:Dabigatran 150 mg CAP (NF) PO SCH ×2 (09:27→19:54)
[2021-08-17] MEDS: CMCS:Dabigatran 150 mg CAP (NF) PO SCH ×2 (09:38→19:54)
[2021-08-17] MEDS: CMCS:SitaGLIPtin 100 mg TAB (NF) PO SCH (09:39)
[2021-08-18] MEDS: CMCS:Dabigatran 150 mg CAP (NF) PO SCH ×2 (09:18→20:38)
[2021-08-18] MEDS: CMCS:SitaGLIPtin 100 mg TAB (NF) PO SCH (09:18)
[2021-08-19] MEDS: CMCS:Dabigatran 150 mg CAP (NF) PO SCH ×2 (09:09→21:10)
[2021-08-19] MEDS: CMCS:SitaGLIPtin 100 mg TAB (NF) PO SCH (09:09)
[2021-08-20] MEDS: CMCS:Dabigatran 150 mg CAP (NF) PO SCH ×2 (08:05→20:58)
[2021-08-20] MEDS: CMCS:SitaGLIPtin 100 mg TAB (NF) PO SCH (08:06)
[2021-08-21] MEDS: CMCS:Dabigatran 150 mg CAP (NF) PO SCH ×2 (09:27→20:55)
[2021-08-21] MEDS: CMCS:SitaGLIPtin 100 mg TAB (NF) PO SCH (09:27)
[2021-08-22] MEDS: CMCS:Dabigatran 150 mg CAP (NF) PO SCH ×2 (09:02→19:54)
[2021-08-22] MEDS: CMCS:SitaGLIPtin 100 mg TAB (NF) PO SCH (09:02)
[2021-08-23] MEDS: CMCS:Dabigatran 150 mg CAP (NF) PO SCH ×2 (07:46→19:33)
[2021-08-23] MEDS: CMCS:SitaGLIPtin 100 mg TAB (NF) PO SCH ×3 (07:46→07:48)
[2021-08-24] MEDS: CMCS:SitaGLIPtin 100 mg TAB (NF) PO SCH (07:50)
[2021-08-24] MEDS: CMCS:Dabigatran 150 mg CAP (NF) PO SCH ×2 (07:50→21:09)
[2021-08-25] MEDS: CMCS:Dabigatran 150 mg CAP (NF) PO SCH ×2 (09:16→20:38)
[2021-08-25] MEDS: CMCS:SitaGLIPtin 100 mg TAB (NF) PO SCH (09:16)
[2021-08-26] MEDS: CMCS:SitaGLIPtin 100 mg TAB (NF) PO SCH (08:40)
[2021-08-26] MEDS: CMCS:Dabigatran 150 mg CAP (NF) PO SCH ×2 (08:40→21:04)
[2021-08-27] MEDS: CMCS:Dabigatran 150 mg CAP (NF) PO SCH ×2 (08:52→22:18)
[2021-08-27] MEDS: CMCS:SitaGLIPtin 100 mg TAB (NF) PO SCH (08:52)
[2021-08-28] MEDS: CMCS:SitaGLIPtin 100 mg TAB (NF) PO SCH (09:06)
[2021-08-28] MEDS: CMCS:Dabigatran 150 mg CAP (NF) PO SCH ×2 (09:06→22:40)
[2021-08-29] MEDS: CMCS:SitaGLIPtin 100 mg TAB (NF) PO SCH (08:04)
[2021-08-29] MEDS: CMCS:Dabigatran 150 mg CAP (NF) PO SCH ×2 (08:04→20:16)
[2021-08-30] MEDS: CMCS:Dabigatran 150 mg CAP (NF) PO SCH ×2 (07:42→19:41)
[2021-08-30] MEDS: CMCS:SitaGLIPtin 100 mg TAB (NF) PO SCH (07:43)
[2021-08-31] MEDS: CMCS:Dabigatran 150 mg CAP (NF) PO SCH ×2 (10:03→19:47)
[2021-08-31] MEDS: CMCS:SitaGLIPtin 100 mg TAB (NF) PO SCH (10:04)
[2021-09-01] MEDS: CMCS:SitaGLIPtin 100 mg TAB (NF) PO SCH (09:07)
[2021-09-01] MEDS: CMCS:Dabigatran 150 mg CAP (NF) PO SCH ×2 (09:07→19:49)
[2021-09-02] MEDS: CMCS:Dabigatran 150 mg CAP (NF) PO SCH ×2 (07:42→19:02)
[2021-09-02] MEDS: CMCS:SitaGLIPtin 100 mg TAB (NF) PO SCH (07:42)
[2021-09-03] MEDS: CMCS:SitaGLIPtin 100 mg TAB (NF) PO SCH (09:08)
[2021-09-03] MEDS: CMCS:Dabigatran 150 mg CAP (NF) PO SCH ×2 (09:08→19:04)
[2021-09-04] MEDS: CMCS:SitaGLIPtin 100 mg TAB (NF) PO SCH (07:38)
[2021-09-04] MEDS: CMCS:Dabigatran 150 mg CAP (NF) PO SCH ×2 (07:38→19:58)
[2021-09-05] MEDS: CMCS:SitaGLIPtin 100 mg TAB (NF) PO SCH (08:29)
[2021-09-05] MEDS: CMCS:Dabigatran 150 mg CAP (NF) PO SCH ×2 (08:29→20:04)
[2021-09-06] MEDS: CMCS:Dabigatran 150 mg CAP (NF) PO SCH ×2 (08:31→23:04)
[2021-09-06] MEDS: CMCS:SitaGLIPtin 100 mg TAB (NF) PO SCH (08:31)
[2021-09-07] MEDS: CMCS:SitaGLIPtin 100 mg TAB (NF) PO SCH (07:43)
[2021-09-07] MEDS: CMCS:Dabigatran 150 mg CAP (NF) PO SCH ×2 (07:43→20:55)
[2021-09-08] MEDS: CMCS:Dabigatran 150 mg CAP (NF) PO SCH ×2 (07:48→20:53)
[2021-09-08] MEDS: CMCS:SitaGLIPtin 100 mg TAB (NF) PO SCH (07:49)
[2021-09-09] MEDS: CMCS:Dabigatran 150 mg CAP (NF) PO SCH ×2 (08:10→21:03)
[2021-09-09] MEDS: CMCS:SitaGLIPtin 100 mg TAB (NF) PO SCH (08:11)
[2021-09-09 19:20] LABS: Rapid COVID-19 Molecular Undetected (Undetected)
[2021-09-10] MEDS: CMCS:Dabigatran 150 mg CAP (NF) PO SCH ×2 (08:08→22:22)
[2021-09-10] MEDS: CMCS:SitaGLIPtin 100 mg TAB (NF) PO SCH (08:08)
[2021-09-11] MEDS: CMCS:SitaGLIPtin 100 mg TAB (NF) PO SCH (09:27)
[2021-09-11] MEDS: CMCS:Dabigatran 150 mg CAP (NF) PO SCH ×2 (09:27→21:29)
[2021-09-12 07:23] VITALS: BP 125/73
[2021-09-12] MEDS: CMCS:SitaGLIPtin 100 mg TAB (NF) PO SCH (09:35)
[2021-09-12] MEDS: CMCS:Dabigatran 150 mg CAP (NF) PO SCH (09:35)
== END 2021-09-12 12:00 | disposition home or self-care (01) | DRG 884 ==
LOC: MED 16:36 → SUATTDRO 16:36 → MED 08-23 16:49
PROVIDERS: ADMIT Nurse Practitioner Family; ATTEND Internal Medicine

== ENCOUNTER 2022-01-12 13:27 | Inpatient (IN) ==
[2022-01-12 13:44] LABS: ABS Basophils 0.1 10^3/ul (0-0.2); ABS Eosinophils 0.1 10^3/ul (0-0.6); ABS Lymphocytes 1.3 10^3/ul (1.0-4.8); ABS Monocytes 0.4 10^3/ul (0-0.8); ABS Neutrophils 3.9 10^3/ul (1.5-7.7); Eosinophil % 2.2 %; Hematocrit 39 % (42-52); Hemoglobin 13.3 g/dL (14.0-18.0); Lymphocyte % 21.9 %; Mean Corpuscular HGB Conc 34 g/dL (31-36); Mean Corpuscular Hemoglobin 32 pg (27-31); Mean Corpuscular Volume 94 fL (80-94); Platelet Count 198 10^3/uL (150-450); Red Blood Count 4.16 10^6 /uL (4.18-5.48); Red Cell Distribution Width 13 % (10-15); White Blood Count 5.7 10^3/uL (3.5-10.8)
[2022-01-12] MEDS ORDERED: Iodixanol (CONTRAST) 320 MG/ML 100 ML SDV IV ONE (13:48)
[2022-01-12 13:54] LABS: Activated Partial Thrombo Time 43.7 seconds (26.0-38.0); INR 1.16 (0.89-1.11)
[2022-01-12 14:36] LABS: ALT 17 U/L (7-52); AST 21 U/L (13-39); Albumin/Globulin Ratio 1.4 (1-3); Alcohol, S < 13 mg/dL (<13); Alkaline Phosphatase 72 U/L (35-149); Anion Gap 6 mmol/L (2-11); Blood Urea Nitrogen 22 mg/dL (6-24); CO2 Carbon Dioxide 28 mmol/L (22-32); Calcium 9.5 mg/dL (8.6-10.3); Chloride 105 mmol/L (101-111); Cholesterol 192 mg/dL; Globulin 2.9 g/dL (2-4); Glucose 118 mg/dL (70-100); HDL Cholesterol 39.4 mg/dL; LDL Cholesterol 125 mg/dL; Potassium 4.4 mmol/L (3.5-5.0); Sodium 139 mmol/L (135-145); Total Protein 6.9 g/dL (6.4-8.9); Triglycerides 138 mg/dL; eGFR CKD-EPI 82.9 (>60)
[2022-01-12] MEDS ORDERED: Ondansetron 4 mg VIAL 2 MG/ML 2 ml VIAL IV PRN (16:19)
[2022-01-12] MEDS ORDERED: Dextrose 50% Syringe 50 ml 25 GM/50 ML SYRINGE IV PUSH PRN (16:22)
[2022-01-12] MEDS ORDERED: Lactated Ringers 1000 ml BAG 1,000 ML IV SCH (17:00)
[2022-01-12] MEDS ORDERED: Dabigatran 150 mg CAP (NF) PO SCH (21:00)
[2022-01-13 06:08] LABS: ABS Basophils 0.1 10^3/ul (0-0.2); ABS Eosinophils 0.2 10^3/ul (0-0.6); ABS Lymphocytes 1.5 10^3/ul (1.0-4.8); ABS Monocytes 0.5 10^3/ul (0-0.8); Eosinophil % 3.2 %; Hematocrit 39 % (42-52); Hemoglobin 13.2 g/dL (14.0-18.0); Lymphocyte % 23.7 %; Mean Corpuscular HGB Conc 34 g/dL (31-36); Mean Corpuscular Hemoglobin 31 pg (27-31); Mean Corpuscular Volume 94 fL (80-94); Mean Platelet Volume 7.4 fL (7.4-10.4); Nucleated Red Blood Cells % 0.1; Platelet Count 177 10^3/uL (150-450); Red Cell Distribution Width 13 % (10-15); White Blood Count 6.3 10^3/uL (3.5-10.8)
[2022-01-13 07:04] LABS: Blood Urea Nitrogen 20 mg/dL (6-24); CO2 Carbon Dioxide 29 mmol/L (22-32); Calcium 8.8 mg/dL (8.6-10.3); Chloride 105 mmol/L (101-111); Glucose 101 mg/dL (70-100); Magnesium 1.8 mg/dL (1.9-2.7); Sodium 141 mmol/L (135-145); eGFR CKD-EPI 91.1 (>60)
[2022-01-13] MEDS ORDERED: Magnesium Sulfate IV 1GM/100ML 1 GM/100 ML BAG IV ONE (07:13)
[2022-01-13 07:18] LABS: Anion Gap 7 mmol/L (2-11)
[2022-01-13] MEDS ORDERED: Aspirin EC 81 mg TAB.EC (enteric coated) PO SCH (09:00)
[2022-01-13] MEDS: Enoxaparin 40 MG/0.4 ML SYR SUBCUT SCH (16:06)
[2022-01-14] MEDS: CMC:SitaGLIPtin 100 mg TAB (NF) PO SCH (07:34)
[2022-01-14 09:13] LABS: ABS Eosinophils 0.2 10^3/ul (0-0.6); ABS Monocytes 0.4 10^3/ul (0-0.8); Eosinophil % 2.7 %; Hematocrit 38 % (42-52); Hemoglobin 12.6 g/dL (14.0-18.0); Lymphocyte % 15.5 %; Mean Corpuscular HGB Conc 34 g/dL (31-36); Mean Corpuscular Hemoglobin 31 pg (27-31); Mean Corpuscular Volume 93 fL (80-94); Mean Platelet Volume 7.6 fL (7.4-10.4); Platelet Count 174 10^3/uL (150-450); Red Blood Count 4.05 10^6 /uL (4.18-5.48); Red Cell Distribution Width 13 % (10-15); White Blood Count 6.6 10^3/uL (3.5-10.8)
[2022-01-14 09:56] LABS: Magnesium 1.7 mg/dL (1.9-2.7); Potassium 4.3 mmol/L (3.5-5.0); eGFR CKD-EPI 82.9 (>60)
[2022-01-14] MEDS ORDERED: Magnesium Sulfate 2 gm BAG 2 GM/50 ML BAG IVPB ONE (09:58)
[2022-01-14] MEDS: Enoxaparin 40 MG/0.4 ML SYR SUBCUT SCH (15:02)
[2022-01-14] MEDS ORDERED: Haloperidol 5 mg/ml SDV IV/IM 5 MG/ML AMP IV SLOW PU PRN (15:09)
[2022-01-14] MEDS ORDERED: Lorazepam PYXIS KEY PRN (15:09)
[2022-01-14] MEDS ORDERED: LORazepam 2 mg VIAL 1 ml IM PRN (15:09)
[2022-01-14] MEDS ORDERED: diazePAM INJ CARPUJECT 5 MG/ML SYRINGE IM PRN (15:33)
[2022-01-15] MEDS: CMC:SitaGLIPtin 100 mg TAB (NF) PO SCH (10:07)
[2022-01-15] MEDS: CMCS:Dabigatran 150 mg CAP (NF) PO SCH (19:54)
[2022-01-16] MEDS: CMCS:Dabigatran 150 mg CAP (NF) PO SCH (09:36)
[2022-01-16] MEDS: CMC:SitaGLIPtin 100 mg TAB (NF) PO SCH (09:37)
[2022-01-16 11:22] VITALS: BP 130/67
== END 2022-01-16 16:50 | disposition home or self-care (01) | DRG 66 ==
LOC: EDHOLD 13:27 → ED 13:27 → EDHOLD 01-13 12:03 → MEDTELE 01-13 12:11 → SUATTDRO 01-13 15:38
PROVIDERS: ADMIT Internal Medicine; ATTEND Pediatrics

== ENCOUNTER 2022-01-17 17:49 | Inpatient (IN) ==
[2022-01-17 19:25] LABS: ABS Eosinophils 0.3 10^3/ul (0-0.6); ABS Lymphocytes 1.8 10^3/ul (1.0-4.8); ABS Monocytes 0.5 10^3/ul (0-0.8); ABS Neutrophils 3.8 10^3/ul (1.5-7.7); Eosinophil % 4.9 %; Hematocrit 38 % (42-52); Hemoglobin 12.4 g/dL (14.0-18.0); Lymphocyte % 27.8 %; Mean Corpuscular HGB Conc 33 g/dL (31-36); Mean Corpuscular Hemoglobin 31 pg (27-31); Mean Corpuscular Volume 94 fL (80-94); Mean Platelet Volume 7.7 fL (7.4-10.4); Platelet Count 193 10^3/uL (150-450); Red Blood Count 3.99 10^6 /uL (4.18-5.48); Red Cell Distribution Width 14 % (10-15); White Blood Count 6.4 10^3/uL (3.5-10.8)
[2022-01-17 19:47] LABS: High Sens Troponin Baseline 4 pg/mL (<20)
[2022-01-17 19:58] LABS: ALT 11 U/L (7-52); AST 17 U/L (13-39); Albumin 3.9 g/dL (3.2-5.2); Albumin/Globulin Ratio 1.5 (1-3); Alcohol, S < 13 mg/dL (<13); Alkaline Phosphatase 73 U/L (35-149); Anion Gap 6 mmol/L (2-11); Blood Urea Nitrogen 26 mg/dL (6-24); CO2 Carbon Dioxide 30 mmol/L (22-32); Calcium 9.4 mg/dL (8.6-10.3); Chloride 103 mmol/L (101-111); Globulin 2.6 g/dL (2-4); Glucose 108 mg/dL (70-100); Potassium 4.2 mmol/L (3.5-5.0); Sodium 139 mmol/L (135-145); Total Protein 6.5 g/dL (6.4-8.9)
[2022-01-17 21:04] LABS: High Sensitivity Troponin 1 Hr 4 pg/mL (<20)
[2022-01-18] MEDS ORDERED: Dextrose 50% Syringe 50 ml 25 GM/50 ML SYRINGE IV PUSH PRN (04:22)
[2022-01-18 06:24] LABS: TSH Ultra Thyroid Stim Horm 2.68 mcIU/mL (0.34-5.60)
[2022-01-18 06:35] LABS: Folate 14.88 ng/mL (5.90-24.80)
[2022-01-18 07:32] LABS: Urine Appearance Clear; Urine Bilirubin Negative (Negative); Urine Blood Negative (Negative); Urine Color Yellow; Urine Glucose Negative (Negative); Urine Ketones Negative (Negative); Urine Nitrite Negative (Negative); Urine Protein Negative (Negative); Urine Urobilinogen 0.2 (Negative) (Negative)
[2022-01-18] MEDS: CMCS:Dabigatran 150 mg CAP (NF) PO SCH ×2 (11:04→20:08)
[2022-01-19] MEDS: CMCS:Dabigatran 150 mg CAP (NF) PO SCH ×2 (08:52→20:55)
[2022-01-19] MEDS ORDERED: PPD test dose 5 TU/0.1 ML TEST (*USE PPD ORDER SET*) INTRADERM SCH (15:00)
[2022-01-20] MEDS: CMCS:Dabigatran 150 mg CAP (NF) PO SCH (08:52)
[2022-01-20] MEDS: CMCS: Dabigatran 150 mg CAP (NF) PO SCH (23:19)
[2022-01-21] MEDS: CMCS: Dabigatran 150 mg CAP (NF) PO SCH ×2 (09:24→20:02)
[2022-01-21] MEDS: CMCS: SitaGLIPtin 100 mg TAB (NF) PO SCH (09:25)
[2022-01-21] MEDS ORDERED: PPD Reading NOTE 1 EA MISC ONE (14:36)
[2022-01-22] MEDS: CMCS: SitaGLIPtin 100 mg TAB (NF) PO SCH (08:06)
[2022-01-22] MEDS: CMCS: Dabigatran 150 mg CAP (NF) PO SCH ×2 (08:06→20:04)
[2022-01-23] MEDS: CMCS: SitaGLIPtin 100 mg TAB (NF) PO SCH (08:38)
[2022-01-23] MEDS: CMCS: Dabigatran 150 mg CAP (NF) PO SCH (08:38)
[2022-01-23 09:54] VITALS: BP 123/87
== END 2022-01-23 12:47 | DRG 66 ==
LOC: ED 17:49 → EDHOLD 01-18 04:15 → SUATTDRO 01-18 04:15 → MEDTELE 01-18 09:52
PROVIDERS: ADMIT Internal Medicine; ATTEND Internal Medicine

== ENCOUNTER 2022-04-06 14:28 | Inpatient (IN) ==
[2022-04-06] MEDS: Dabigatran 150 mg CAP (NF) PO SCH (21:37)
[2022-04-07] MEDS: Dabigatran 150 mg CAP (NF) PO SCH (10:34)
[2022-04-08] MEDS: Dabigatran 150 mg CAP (NF) PO SCH ×3 (00:27→22:35)
[2022-04-09] MEDS: Dabigatran 150 mg CAP (NF) PO SCH ×2 (10:43→20:37)
[2022-04-09 12:41] VITALS: BP 126/73
== END 2022-04-10 09:19 | disposition short-term general hospital (02) | DRG 309 ==
LOC: MEDTELE → OBSVTOIN 14:28 → SUATTDRO 04-08 16:30 → PREINTOOBSV 04-08 21:31
PROVIDERS: ADMIT Internal Medicine; ATTEND Internal Medicine